=== PATIENT | female | born 1965 | race Caucasian/White ===

== ENCOUNTER → 2016-11-12 | Outpatient (REF) | payer OTHER ==
[~2016-11-12] MED LIST: /ADVA50050 IN; /ESOM40CA OR; ADV250INH INH; ALBU17IN INH; ALBU83IN INH; AMBI5TAB PO; ARNU1INH INH; ATRO1SOL13 INH; Albuterol Sulfate INH; BACL10TA2 PO; BACT800T5 PO; BUPR100T12 OR; CALCITRIOL OR; CLOTR1CR TOP; COLA100C PO; COLA100C2 OR; COUM10TA OR; COUM10TA PO; CYANPOW INJ; DAILTAB65 PO; DOC Q LACE PD; DOC-8.6T PO; DOCU10CA PO; DRIS50002 PO; DULC5TAB PO; DULO1CAP3 PO; ENDO5TAB7 PO; ERGO5000 PO; FERR325T OR; FERR325T3 PO; FLEXERIL OR; FURO1TAB15 PO; FURO40TA2 OR; FURO40TA2 PO; GABA600T PO; GABA600T3 OR; GLUC1KIT SC; Gabapentin OR; HYDR25T PO; IMIT50TA PO; IPRA2IN INH; KLOR1TAB69 PO; LIDO5DIS TOP; LIDO5DIS36 TD; LOTR1CRE TOP; LYRI100C10 PO; MAXALT OR; META48.54 PO; MIRA3350 PO; MORP20SO PO; MS C15TA5 OR; MS C30TA PO; MULTIVIT OR; NEUR600T OR; NEUR800T PO; NICO14DI3 TD; NICO21DI4 TD; OMEP20CA3 PO; OMEP40CA2 PO; OXYB5TA PO; OXYC15TA76 PO; OYSCO OR; PERC5TAB8 OR; POTA20TA OR; POTA20TA PO; PROZ20CA OR; SENE8.6T3 PO; SENEXON PO; SENN8.6T10 PO; SENO8.6T2 PO; SPIR25TA2 PO; SUMA6INJ SC; TOPA100T8 PO; TOPI100T OR; TOPI100T PO; TOPI200T OR; TRAZ100T4 PO; TYLE325T5 PO; VENL150C43 PO; VENL37.598 PO; VENL75CA PO; VENL75TA2 PO; VENTAER IN; VITA100072 IM; VITA100072 PO; VITA100L PO; VITAMIN D OR; VITMTA PO; WARF10TA OR; WARF4TAB51 PO; WELL100T2 OR; XARE20TA PO; [UNRECOGNIZED DRUG - OTHER] OR; [UNRECOGNIZED DRUG - OTHER] OR; gaba
[2016-11-12 13:23] LABS: INR 2.48
== END | disposition home or self-care (01) ==
LOC: M LAB REF 12:28
PROVIDERS: ATTEND Family Medicine
DX: Z51.81 Encounter for therapeutic drug level monitoring (principal); Z79.01 Long term (current) use of anticoagulants

== ENCOUNTER → 2016-12-17 | Outpatient (REF) | payer OTHER ==
[~2016-12-17] MED LIST changes: -ERGO5000 PO; +ERGO500014 PO; -TOPI100T PO; +TOPI1TAB31 PO
[2016-12-17 12:59] LABS: BASO % 0.4 % (0.0-1.0); EOS # 0.1 K/mm3 (0.0-0.50); LARGE UNSTAINED CELL # 0.1 K/mm3 (0.0-0.4); LARGE UNSTAINED CELL % 2.2 % (0.0-4.0); LYMPH # 1.7 K/mm3 (1.5-4.5); LYMPH % 43.3 % (24.0-44.0); MEAN CORPUSCULAR HEMOGLOBIN 30.8 pg (27.0-33.0); MEAN CORPUSCULAR HGB CONC 31.8 g/dl (32.0-36.5); MEAN CORPUSCULAR VOLUME 96.8 fl (80.0-96.0); MONO # 0.2 K/mm3 (0.0-0.8); NEUTROPHILS # 1.8 K/mm3 (1.8-7.7); NEUTROPHILS % 45.1 % (36.0-66.0); PLATELET COUNT, AUTOMATED 183 k/mm3 (150-450); RED CELL DISTRIBUTION WIDTH 13.3 % (11.5-14.5)
[2016-12-17 13:06] LABS: ANION GAP 10 MEQ/L (8-16); BLOOD UREA NITROGEN 11 MG/DL (7-18); CALCIUM LEVEL 8.1 MG/DL (8.5-10.1); CARBON DIOXIDE LEVEL 23 MEQ/L (21-32); CHLORIDE LEVEL 117 MEQ/L (98-107); GLOMERULAR FILTRATION RATE > 60.0 (>51); GLUCOSE, FASTING 88 MG/DL (70-105); POTASSIUM SERUM 3.7 MEQ/L (3.5-5.1); SODIUM LEVEL 150 MEQ/L (136-145)
== END | disposition home or self-care (01) ==
LOC: M LAB REF 12:04
PROVIDERS: ATTEND Internal Medicine Cardiovascular Disease
DX: Z51.81 Encounter for therapeutic drug level monitoring (principal); Z79.01 Long term (current) use of anticoagulants; I82.509 Chronic embolism and thrombosis of unspecified deep veins of unspecified lower extremity; R06.2 Wheezing

== ENCOUNTER → 2016-12-17 | Outpatient (REF) | payer OTHER ==
[2016-12-17 13:04] LABS: INR 1.24
== END | disposition home or self-care (01) ==
LOC: M LAB REF 12:06
PROVIDERS: ATTEND Family Medicine
DX: Z51.81 Encounter for therapeutic drug level monitoring (principal); Z79.01 Long term (current) use of anticoagulants

== ENCOUNTER → 2017-01-08 | Outpatient (CLI) | payer OTHER ==
[~2017-01-08] MED LIST changes: +GASTROGRAFIN SOLUTION 30ML (Q9963) As Ordered ONE; +ISOVUE-370 76% 100ML VIAL (Q9967) As Ordered ONE
--- NOTE | 2017-01-08 13:18 | REP ---
CT ABDOMEN WITH AND WITHOUT CONTRAST: TECHNIQUE: Axial noncontrast images through the abdomen followed by contrast-enhanced images through the abdomen using 100 mL Isovue 370 intravenous contrast material, with coronal and sagittal reformations. The visualized lung bases demonstrate no evidence of infiltrate. The liver demonstrates no mass. Patient has had a prior cholecystectomy. There is prominence of the common bile duct, measuring 1 cm in diameter with no definite intraluminal calculus. This caliber is normal in a patient of this page status post cholecystectomy. The spleen, adrenals and pancreas are unremarkable. There is no evidence of pancreatic mass. There is no pancreatic duct dilatation. Tiny subcentimeter cyst is seen in the upper pole of the right kidney. There is a cyst in the upper pole of the left kidney measuring 1.2 cm in diameter. There is no hydronephrosis bilaterally. No renal stones are seen. IVC filter is seen. No bowel wall thickening is seen. There is no significant adenopathy. There is no free air or free fluid. Patient has had prior gastric bypass surgery. There is a small hiatal hernia. IMPRESSION: Status post cholecystectomy. Small cyst in each kidney. Small hiatal hernia. No suspicious mass or adenopathy. Signed by Serg Willis MD 01/08/2017 03:55 P
== END ==
LOC: M RAD 10:45
PROVIDERS: ATTEND Family Medicine
DX: E16.2 Hypoglycemia, unspecified (principal); R55 Syncope and collapse; Z90.49 Acquired absence of other specified parts of digestive tract; K44.9 Diaphragmatic hernia without obstruction or gangrene; N28.1 Cyst of kidney, acquired
CPT/HCPCS: 74170; Q9963; Q9967

== ENCOUNTER → 2017-02-13 | Outpatient (CLI) | payer OTHER ==
[~2017-02-13] MED LIST changes: -COLA100C PO; +COLA100C3 PO; -GASTROGRAFIN SOLUTION 30ML (Q9963) As Ordered ONE; -ISOVUE-370 76% 100ML VIAL (Q9967) As Ordered ONE
--- NOTE | 2017-02-13 15:48 | REP ---
MRI BRAIN WITHOUT CONTRAST: HISTORY: Dizziness. COMPARISON: 11/29/2015 A small focus of increased signal intensity on T2-weighted images is present in the left petr. This represents an old lacunar infarction. Scattered punctate areas of increased signal intensity on T2-weighted images are present in the periventricular and subcortical white matter and petr. This represents small vessel ischemic disease. There is no intraparenchymal hemorrhage, acute infarct, mass or midline shift. The sella turcica is partially empty. A 7 mm pineal cyst is present. The ventricular system is normal in appearance. There is no extracerebral collection. The sinuses are clear. IMPRESSION: 1. Old left pontine lacunar infarction. 2. Minimal small vessel ischemic disease. Signed by Trenton Mistry MD 02/13/2017 03:49 P
--- NOTE | 2017-02-13 15:50 | REP ---
MRA BRAIN WITHOUT CONTRAST: HISTORY: Dizziness. 3D TOF MR angiography was performed at the level of the [place]. There is no aneurysm, arteriovenous malformation or atherosclerotic lesion. Major intracranial vessels are patent. The left vertebral artery is dominant. IMPRESSION: Normal MRA brain. Signed by Trenton Mistry MD 02/13/2017 03:51 P
--- NOTE | 2017-02-13 15:52 | REP ---
MRA CAROTIDS WITHOUT CONTRAST: HISTORY: Dizziness. Unenhanced 2D TOF MR angiography was performed at the level of the carotid bifurcations. This examination is limited secondary to motion. The distal common carotid arteries and origins of the external and internal carotid arteries are normal. The vertebral arteries are patent. The left vertebral artery is dominant. There are no atherosclerotic lesions. IMPRESSION: Normal MRA carotids. Signed by Trenton Mistry MD 02/13/2017 04:06 P
== END ==
LOC: M RAD 13:49
PROVIDERS: ATTEND Psychiatry & Neurology Neurology
DX: R42 Dizziness and giddiness (principal); R51 Headache; I73.9 Peripheral vascular disease, unspecified

== ENCOUNTER → 2017-02-27 | Outpatient (REF) | payer OTHER ==
[2017-02-27 18:36] LABS: FREE T4 0.8 NG/DL (0.76-1.46)
== END ==
LOC: M SFHCCLAY 10:39
PROVIDERS: ATTEND Family Medicine
DX: E16.2 Hypoglycemia, unspecified (principal)

== ENCOUNTER → 2017-03-25 | Outpatient (REF) | payer OTHER ==
[2017-03-25 15:05] LABS: INR 3.45
== END ==
LOC: M LAB REF 14:45
PROVIDERS: ATTEND Family Medicine
DX: Z51.81 Encounter for therapeutic drug level monitoring (principal); Z79.01 Long term (current) use of anticoagulants

== ENCOUNTER → 2017-05-06 | Outpatient (REF) | payer OTHER, SELFPAY ==
[~2017-05-06] MED LIST changes: -COLA100C3 PO; +COLA100C5 PO; -DOC-8.6T PO; +DOC-8.6T3 PO; +ENDO5TAB PO; -ENDO5TAB7 PO; -FURO1TAB15 PO; +FURO80TA2 PO; +HYDR-3363 PO; -HYDR25T PO; -LIDO5DIS36 TD; +LIDO5DIS41 TD; -LOTR1CRE TOP; +LOTR1CRE11 TOP; -LYRI100C10 PO; -MS C30TA PO; +MS C30TA6 PO; -OXYB5TA PO; +OXYB5TAB10 PO; +PREG100CA PO; +SENN1TAB10 PO; -SENN8.6T10 PO; -SENO8.6T2 PO; +SENO8.6T5 PO; +TOPA100T12 PO; -TOPA100T8 PO; +TOPI100T9 PO; -TOPI1TAB31 PO; +TRAZ-136 PO; -TRAZ100T4 PO
[2017-05-06 14:32] LABS: INR 1.74
== END ==
LOC: M LAB REF 13:27
PROVIDERS: ATTEND Family Medicine
DX: Z51.81 Encounter for therapeutic drug level monitoring (principal); Z79.01 Long term (current) use of anticoagulants

== ENCOUNTER → 2017-05-13 | Outpatient (REF) | payer OTHER, SELFPAY ==
[2017-05-13 11:57] LABS: INR 2.58
== END ==
LOC: M LAB REF 11:17
PROVIDERS: ATTEND Family Medicine
DX: R30.0 Dysuria (principal); Z79.01 Long term (current) use of anticoagulants

== ENCOUNTER 2017-09-20 06:37 | Inpatient (IN) | payer MEDICAID, OTHER, SELFPAY ==
[~2017-09-20] VITALS: Ht 167.6 cm; Wt 116.3 kg
[2017-09-20] MEDS: NS 1,000 ML IV SCH ×2 (07:44→20:04)
[2017-09-20] MEDS ORDERED: DEXTROSE 50% 50 ML SYRINGE As Ordered ONE (07:53)
[2017-09-20] MEDS ORDERED: DEXTROSE 50% 50 ML SYRINGE IV STA ×3 (07:54→13:11)
[2017-09-20 08:07] LABS: ABG BASE EXCESS -4.1 (-2.0-2.0); ABG HCO3 21.5 MEQ/L (22.0-26.0); ABG PARTIAL PRESSURE CO2 41.2 mmHg (35.0-45.0); ABG PARTIAL PRESSURE O2 60.3 mmHg (75.0-100.0); ABG TOTAL CO2 22.7 MEQ/L (22.0-29.0); ABG pH (ARTERIAL) 7.335 UNITS (7.350-7.450)
[2017-09-20 08:30] LABS: BASO % 0.2 % (0.0-1.0); IMMATURE GRANULOCYTE % 0.2 % (0-0); LYMPH # 0.6 10^3/uL (1.5-4.5); LYMPH % 7.3 % (24.0-44.0); MEAN CORPUSCULAR HEMOGLOBIN 32.6 pg (27.0-33.0); MEAN CORPUSCULAR HGB CONC 33.4 g/dl (32.0-36.5); MEAN CORPUSCULAR VOLUME 97.5 fl (80.0-96.0); MONO # 0.4 10^3/uL (0.0-0.8); MONO % 4.3 % (0.0-5.0); NEUTROPHILS # 7.4 10^3/uL (1.8-7.7); PLATELET COUNT, AUTOMATED 214 10^3/uL (150-450); RED CELL DISTRIBUTION WIDTH 13.1 % (11.5-14.5); WHITE BLOOD COUNT 8.4 10^3/uL (4.0-10.0)
--- NOTE | 2017-09-20 08:37 | REP ---
Chest one-view HISTORY: Altered mental status Comparison: 11/26/2015 The lungs are clear. The heart is normal in size. The pulmonary vasculature is normal in appearance. Impression: No acute disease. Signed by Trenton Mistry MD 09/20/2017 08:29 A
--- NOTE | 2017-09-20 08:41 | REP ---
CT Head without contrast HISTORY: Altered mental status COMPARISON: 11/26/2015 There is no intraparenchymal hemorrhage, acute infarct, mass or midline shift. The ventricular system and cortical sulci as well as subarachnoid space in the posterior fossa are dilated consistent with minimal volume loss. There is no extra cerebral collection. There is no fracture. The visualized sinuses are clear. IMPRESSION: Minimal volume loss. Signed by Trenton Mistry MD 09/20/2017 08:32 A
[2017-09-20 08:42] LABS: INR 2.34
[2017-09-20 08:51] LABS: ALBUMIN 3.8 GM/DL (3.2-5.2); ALBUMIN/GLOBULIN RATIO 1.09 (1.00-1.93); ALKALINE PHOSPHATASE 131 U/L (45-117); ALT/SGPT 23 U/L (12-78); ANION GAP 6 MEQ/L (8-16); AST/SGOT 17 U/L (7-37); BILIRUBIN,DIRECT < 0.1 MG/DL (0.0-0.2); BILIRUBIN,TOTAL 0.2 MG/DL (0.2-1.0); BLOOD UREA NITROGEN 11 MG/DL (7-18); CALCIUM LEVEL 8.5 MG/DL (8.5-10.1); CARBON DIOXIDE LEVEL 25 MEQ/L (21-32); CHLORIDE LEVEL 110 MEQ/L (98-107); CREATININE FOR GFR 0.82 MG/DL (0.55-1.02); GLOMERULAR FILTRATION RATE > 60.0 (>51); GLUCOSE, FASTING 120 MG/DL (70-105); POTASSIUM SERUM 3.6 MEQ/L (3.5-5.1); SODIUM LEVEL 141 MEQ/L (136-145); TOTAL PROTEIN 7.3 GM/DL (6.4-8.2)
[2017-09-20] MEDS: FUROSEMIDE 80 MG TAB PO SCH (09:00)
[2017-09-20] MEDS: D10W/0.45% SODIUM CHLORIDE 1,000 ML IV SCH ×4 (12:30→21:01)
[2017-09-20] MEDS ORDERED: WARF-23 PO (14:28)
[2017-09-20] MEDS ORDERED: ENAB15TA PO (14:49)
[2017-09-20] MEDS ORDERED: ALBU83IN INH (14:55)
[2017-09-20] MEDS ORDERED: GLUCAGON FOR INJ 1 MG VIAL (J1610) SC PRN (15:00)
[2017-09-20] MEDS ORDERED: GLUCOSE 4 GM CHEW TABLET PO PRN (15:00)
[2017-09-20] MEDS ORDERED: DEXTROSE 50% 50 ML SYRINGE IV PRN ×2 (15:00→15:45)
[2017-09-20] MEDS ORDERED: ALBUTEROL 90 MCG/ACT 8GM HFA INHALER INH PRN (15:45)
[2017-09-20] MEDS: ACETAMINOPHEN TAB 650MG DOSE (2X325MG) PO PRN (16:43)
--- NOTE | 2017-09-20 17:26 | HPEPDOC ---
[facility] Medical History & Physical Date of Admission Sep 20, 2017 Primary Care Physician: Tomy Samayoa MD Attending Physician: Jim Cui M.D. History and Physical CHIEF COMPLAINT: Low blood sugar HISTORY OF PRESENT ILLNESS: This is a 52-year-old female who presented to the emergency department with complaints of low blood sugar. She has a past medical history significant for hypoglycemia with past hospitalizations, status post gastric bypass 2003, TIA 1999, diabetes mellitus2, obesity, chronic migraines with aura, and factor V Leiden. Patient reports that she was having a sleep study last night. Patient states that she was feeling low on blood sugar. She took along her glucagon dose, but did not take the medication. Her daughter was alerted at 545 this morning, states that she was having a hard time waking up. She was brought to the emergency department by EMS. They measured her blood sugar at 34 and she was given an amp of glucose. In the emergency department, patient continued to be hypoglycemic. Her glucose continued to be around 60 to 100. She was given 2 Amps of glucose and started on D10 W/half-normal saline at a rate of 200 mL per hour. Patient started eating while in the emergency department. Patient continues to be lethargic. She was recently started on antibiotic on 09/16 for empiric treatment suspected UTI. PAST MEDICAL HISTORY: hypoglycemia, status post gastric bypass 2003, TIA 1999, diabetes mellitus2, obesity, chronic migraines with aura, and factor V Leiden PAST SURGICAL HISTORY: Gastric bypass in 2003, appendectomy, hysterectomy with partial nephrectomy, colonoscopy in 2013, right and left greater saphenous vein ablation 2013 SOCIAL HISTORY: Marital status: . Resides in: [place], [place]. Lives by herself, has 2 dogs: Pitbull named Varinder and a toy poodle named Suad Children: 4 Employment: None Tobacco use: Half pack per day ETOH: Denies Illicit drug use: Denies IV drug use: Denies FAMILY HISTORY: Father: 52, lung ca Mother: 72. colon ca, DM, thyroid d/o ALLERGIES: Please see below. REVIEW OF SYSTEMS: CONSTITUTIONAL: Lethargic HEENT: No Headaches, changes in vision CARDIOVASCULAR: No CP, palpitations RESPIRATORY: No SOB, dyspnea GASTROINTESTINAL: Some suprapubic pain, no diarrhea/constipation, no nausea/ vomiting GENITOURINARY: urinary frequency SKIN: no rashes MUSCULOSKELETAL: no muscle aches NEUROLOGICAL: no numbness, tingling PSYCHIATRIC: hx of depression ENDOCRINE: Low blood sugar, no polyuria/polydipsia HEMATOLOGIC/LYMPHATIC: no abnormal bleeding or bruising. HOME MEDICATIONS: Please see below. PHYSICAL EXAMINATION: VITAL SIGNS: Please see below GENERAL APPEARANCE: Alert and oriented, no acute distress, was eating at the time HEENT: Normocephalic, atraumatic, EOMI, PERRLA, TM flat dull CARDIOVASCULAR: RRR, no murmurs LUNGS: Clear b/l no wheezing ABDOMEN: soft, nontender, nondistended, no rebound EXTREMITIES: No edema NEUROLOGICAL: No sensory deficits PSYCHIATRIC: lethargic, normal mood. LABORATORY DATA: See below. IMAGING: CT head 09/20: Minimal volume loss CXR 09/20: No acute disease MICROBIOLOGY: Please see below. ASSESSMENT: This is a 52 y/o female with symptomatic hypoglycemia. PLAN: 1. Hypoglycemia. Patient admitted to ICU for BS q1h. At this time, we will continue patient on D10 W/half-normal saline at a rate of 75 mL per hour. Hypoglycemic protocol initiated, patient will be given 1 amp of glucose if fasting blood sugars below 60. Patient was administered glucagon. Labs ordered for C-peptide, proinsulin, insulin levels. MRI of the abdomen ordered to rule out insulinoma/pancreatic mass. 2. UTI. UA and urine culture ordered. Blood cultures taken. Patient has recurrent UTI. Was started on cephalexin on 09/16, empirically started by PCP. We will continue antibiotic. 3. Hypertension. Continue patient on furosemide and spironolactone. 4. History of depression. Continue patient on duloxetine. 5. History of diabetic neuropathy. Continue patient on gabapentin. 6. History of factor V Leiden. Currently on anticoagulation with Coumadin. 7. History of asthma. Continue home regimen 8. History of migraine with aura. Continue patient on topiramate. 9. DVT prophylaxis. Patient is on Coumadin. Vital Signs Vital Signs Date Time Temp Pulse Resp B/P (MAP) Pulse Ox O2 Delivery O2 Flow Rate FiO2 09/20/17 13:19 97.1 09/20/17 12:59 64 09/20/17 11:14 97 09/20/17 06:51 18 Room Air Laboratory Data Labs 24H Laboratory Tests 2 09/20/17 07:01: Bedside Glucose (Misc Panel) 98 09/20/17 07:50: Blood Gas Bicarbonate Standard 21.0L, Arterial Blood pH 7.335L, Arterial Blood Partial Pressure CO2 41.2, Arterial Blood Partial Pressure O2 60.3L, Arterial Blood Total CO2 22.7, Arterial Blood HCO3 21.5L, Arterial Blood Base Excess - 4.1L, Arterial Blood Oxygen Saturation 91.6L 09/20/17 07:52: Bedside Glucose (Misc Panel) 60L 09/20/17 08:24: Immature Granulocyte % (Auto) 0.2H, White Blood Count 8.4, Red Blood Count 4.79 , Hemoglobin 15.6, Hematocrit 46.7, Mean Corpuscular Volume 97.5H, Mean Corpuscular Hemoglobin 32.6, Mean Corpuscular Hemoglobin Concent 33.4, Red Cell Distribution Width 13.1, Platelet Count 214, Neutrophils (%) (Auto) 88.0H, Lymphocytes (%) (Auto) 7.3L, Monocytes (%) (Auto) 4.3, Eosinophils (%) (Auto) 0.0, Basophils (%) (Auto) 0.2, Neutrophils # (Auto) 7.4, Lymphocytes # (Auto) 0.6L, Monocytes # (Auto) 0.4, Eosinophils # (Auto) 0.0, Basophils # (Auto) 0.0, Immature Granulocyte # (Auto) 0.0, Nucleated Red Blood Cells % (auto) 0.0, Prothrombin Time 26.5H, Prothromb Time International Ratio 2.34, Anion Gap 6L, Glomerular Filtration Rate > 60.0, Calcium Level 8.5, Aspartate Amino Transf ( AST/SGOT) 17, Alanine Aminotransferase (ALT/SGPT) 23, Alkaline Phosphatase 131H , Total Bilirubin 0.2, Direct Bilirubin < 0.1, Total Creatine Kinase 51, Creatine Kinase MB 1.0, Creatine Kinase MB Relative Index 1.96, Troponin I < 0.02, Total Protein 7.3, Albumin 3.8, Albumin/Globulin Ratio 1.09, Thyroid Stimulating Hormone (TSH) 1.420 09/20/17 09:43: Bedside Glucose (Misc Panel) 119H 09/20/17 10:53: Bedside Glucose (Misc Panel) 94 09/20/17 12:01: Bedside Glucose (Misc Panel) 61L 09/20/17 13:09: Bedside Glucose (Misc Panel) 57L CBC/BMP Laboratory Tests 09/20/17 08:24 Red Blood Count 4.79, Mean Corpuscular Volume 97.5 H, Mean Corpuscular Hemoglobin 32.6, Mean Corpuscular Hemoglobin Concent 33.4, Red Cell Distribution Width 13.1, Neutrophils (%) (Auto) 88.0 H, Lymphocytes (%) (Auto) 7.3 L, Monocytes (%) (Auto) 4.3, Eosinophils (%) (Auto) 0.0, Basophils (%) (Auto ) 0.2, Neutrophils # (Auto) 7.4, Lymphocytes # (Auto) 0.6 L, Monocytes # (Auto) 0.4, Eosinophils # (Auto) 0.0, Basophils # (Auto) 0.0 Home Medications Scheduled (Arnuity Ellipta) 100 Mcg/Act Inh, 100 MCG INH DAILY Baclofen (Baclofen) 10 Mg Tab, 10 MG PO TID Cyanocobalamin (Vitamin B12) 1,000 Mcg Tab, 1,000 MCG PO DAILY Darifenacin Hydrobromide (Enablex) 15 Mg Tab, 15 MG PO DAILY Docusate Sodium (Colace) 100 Mg Cap, 200 MG PO BID Duloxetine Hcl (Duloxetine HCl) 60 Mg Cap, 60 MG PO DAILY Ferrous Sulfate (Ferrous Sulfate) 325 Mg Tab, 325 MG PO DAILY Furosemide (Furosemide) 80 Mg Tab, 80 MG PO DAILY Gabapentin (Gabapentin) 600 Mg Tab, 600 MG PO TID Glucagon Rdna (Glucagon Emergency Kit) 1 Mg Kit, 1 MG SC ASDIRECTED Multivitamins *[facility] STOCKED* (Thera M Plus *[facility] STOCKED*) 1 Tab Tab, 1 TAB PO DAILY Omeprazole (Omeprazole) 20 Mg Cap, 20 MG PO BID Potassium Chloride (Klor-Con M20) 20 Meq Tabcr, 40 MEQ PO BID Senna (Senna Lax) 8.6 Mg Tab, 2 TABS PO BID Spironolactone (Spironolactone) 25 Mg Tab, 25 MG PO DAILY Topiramate (Topiramate) 100 Mg Tab, 100 MG PO BID Vitamin D (Drisdol) 50,000 Unit Cap, 50,000 UNIT PO QWEEK THURSDAY Warfarin Sod (Coumadin) 10 Mg Tab, 10 MG PO ASDIRECTED PER INR LABS ON THURSDAY. CURRENTLY 10MG THU,THU,,SAT,SUN Warfarin Sod (Warfarin Sodium) 5 Mg Tab, 5 MG PO ASDIRECTED PER INR LABS ON THURSDAY. CURRENTLY 5MG ,THURSDAY Scheduled PRN Acetaminophen (Tylenol) 325 Mg Tab, 650 MG PO Q4H PRN for PAIN Albuterol Sulfate (Ventolin Hfa) 200 Puff/8 Gm Aers, 2 PUFF INH QID PRN for SHORTNESS OF BREATH Albuterol Sulfate (Albuterol Sulfate) 2.5 Mg/3 Ml Nebu, 2.5 MG INH Q4H PRN for SHORTNESS OF BREATH Allergies Coded Allergies: Penicillins (Verified Allergy, Intermediate, rash, 12/30/14) Mupirocin (Verified Allergy, Unknown, redness, edema, 11/29/15) GME ATTESTATION GME ATTESTATION My preceptor for this patient encounter was physically present in the building during the encounter and was fully available. As needed, all aspects of the patient interview, examination, medical decision making process, and medical care plan development were reviewed and approved by the preceptor. Preceptor is aware and concurs with the plan as stated in the body of this note and will attest to such by his/her cosignature. MEGHNAN OWENS DO Sep 20, 2017 14:19
[2017-09-20] MEDS: GABAPENTIN 300 MG CAP PO SCH ×2 (18:04→21:02)
[2017-09-20] MEDS: BACLOFEN 10 MG TAB PO SCH ×2 (18:04→21:02)
[2017-09-20 18:29] LABS: CALCIUM OXALATE CRYSTALS SMALL
[2017-09-20 20:00] VITALS: BP 132/86
[2017-09-20] MEDS: WARFARIN SOD 5 MG TAB PO SCH (20:03)
[2017-09-20] MEDS: DULoxetine 30 MG CAP (CYMBALTA) PO SCH (21:02)
[2017-09-20] MEDS: SPIRONOLACTONE 25 MG TAB PO SCH (21:02)
[2017-09-20] MEDS: DOCUSATE SODIUM 100 MG CAP PO SCH (21:03)
[2017-09-20] MEDS: SENNA 8.6 MG TAB (SENOKOT) PO SCH (21:03)
[2017-09-20] MEDS: CEPHALEXIN 500 MG CAP PO SCH (21:04)
[2017-09-20] MEDS: NICOTINE 7 MG/24 HR TRANSDERMAL TD SCH (21:04)
[2017-09-20] MEDS: TOPIRAMATE (TopAMAX) 100 MG TAB PO SCH (21:04)
[2017-09-21] VITALS: BP 110/71
[2017-09-21 04:00] VITALS: BP 99/51
[2017-09-21 04:42] LABS: BASO % 0.7 % (0.0-1.0); EOS # 0.1 10^3/uL (0.0-0.50); EOS % 1.7 % (0.0-3.0); IMMATURE GRANULOCYTE % 0.2 % (0-0); LYMPH # 2.8 10^3/uL (1.5-4.5); LYMPH % 47.3 % (24.0-44.0); MEAN CORPUSCULAR HEMOGLOBIN 32.5 pg (27.0-33.0); MEAN CORPUSCULAR HGB CONC 33.7 g/dl (32.0-36.5); MEAN CORPUSCULAR VOLUME 96.7 fl (80.0-96.0); MONO # 0.6 10^3/uL (0.0-0.8); MONO % 10.7 % (0.0-5.0); NEUTROPHILS # 2.3 10^3/uL (1.8-7.7); NEUTROPHILS % 39.4 % (36.0-66.0); PLATELET COUNT, AUTOMATED 210 10^3/uL (150-450); RED CELL DISTRIBUTION WIDTH 13.4 % (11.5-14.5); WHITE BLOOD COUNT 5.8 10^3/uL (4.0-10.0)
[2017-09-21 04:56] LABS: INR 2.84
[2017-09-21 05:05] LABS: ALBUMIN 3.1 GM/DL (3.2-5.2); ALBUMIN/GLOBULIN RATIO 0.97 (1.00-1.93); ALKALINE PHOSPHATASE 109 U/L (45-117); ALT/SGPT 21 U/L (12-78); ANION GAP 8 MEQ/L (8-16); AST/SGOT 15 U/L (7-37); BILIRUBIN,TOTAL 0.2 MG/DL (0.2-1.0); BLOOD UREA NITROGEN 10 MG/DL (7-18); CARBON DIOXIDE LEVEL 23 MEQ/L (21-32); CHLORIDE LEVEL 113 MEQ/L (98-107); CREATININE FOR GFR 0.73 MG/DL (0.55-1.02); GLOMERULAR FILTRATION RATE > 60.0 (>51); GLUCOSE, FASTING 91 MG/DL (70-105); POTASSIUM SERUM 3.6 MEQ/L (3.5-5.1); SODIUM LEVEL 144 MEQ/L (136-145); TOTAL PROTEIN 6.3 GM/DL (6.4-8.2)
--- NOTE | 2017-09-21 05:42 | ECGEPIP ---
Stationary ECG Study [facility] - ED Test Date: 2017-09-20 Pat Name: LILA NUÑEZ Department: Room: [place] [address] Gender: F Community Education Specialist: lenny : 1965 Requested By: Aldo Ramon Order Number: [id number] Reading MD: Aldo Cintron Measurements Intervals [place] Rate: 67 P: 21 VT: 182 QRS: -41 QRSD: 118 T: -75 QT: 462 QTc: 488 Interpretive Statements SINUS RHYTHM MARKED LEFT AXIS DEVIATION MODERATE INTRAVENTRICULAR CONDUCTION DELAY MODERATE T-WAVE ABNORMALITY, CONSIDER LATERAL ISCHEMIA RIGHT BUNDLE BRANCH BLOCK ON PRIOR EKG NO LONGER PRESENT Electronically Signed On 09-21-2017 5:42:01 EST by Aldo Cintron
[2017-09-21] MEDS: ACETAMINOPHEN TAB 650MG DOSE (2X325MG) PO PRN (06:39)
[2017-09-21 08:00] VITALS: BP 112/70
[2017-09-21] MEDS: SENNA 8.6 MG TAB (SENOKOT) PO SCH ×2 (08:45→21:08)
[2017-09-21] MEDS: DOCUSATE SODIUM 100 MG CAP PO SCH ×2 (08:47→21:08)
[2017-09-21] MEDS: DULoxetine 30 MG CAP (CYMBALTA) PO SCH (08:47)
[2017-09-21] MEDS: BACLOFEN 10 MG TAB PO SCH ×3 (08:47→21:08)
[2017-09-21] MEDS: TOPIRAMATE (TopAMAX) 100 MG TAB PO SCH ×2 (08:47→21:08)
[2017-09-21] MEDS: CEPHALEXIN 500 MG CAP PO SCH ×2 (08:47→21:08)
[2017-09-21] MEDS: GABAPENTIN 300 MG CAP PO SCH ×3 (08:47→21:07)
[2017-09-21] MEDS: FUROSEMIDE 80 MG TAB PO SCH (08:47)
[2017-09-21] MEDS: SPIRONOLACTONE 25 MG TAB PO SCH (08:47)
[2017-09-21] MEDS: NICOTINE 7 MG/24 HR TRANSDERMAL TD SCH (08:48)
[2017-09-21] MEDS: D10W/0.45% SODIUM CHLORIDE 1,000 ML IV SCH (09:53)
[2017-09-21 12:00] VITALS: BP 124/76
[2017-09-21 16:00] VITALS: BP 123/70
--- NOTE | 2017-09-21 16:00 | IPNPDOC ---
Subjective Date Seen The patient was seen on 09/21/17. Subjective Chief Complaint/HPI The patient is a 52-year-old female admitted with a reason for visit of Hypoglycemia. Events since last encounter Patient states that she has been doing good, she states that her sugars have been running around 80. She denies any hypoglycemic episodes. Constitutional: Denies: Chills, Fever Pulmonary: Denies: Dyspnea Cardiovascular: Denies: Chest Pain Other systems Head: Positive for feeling dizzy, lightheaded Objective Physical Examination General Exam: Positive: Alert Chest Exam: Positive: Normal air movement, Wheezing, Negative: Clear to auscultation, Rales, Rhonchi Heart Exam: Positive: Rate Normal, Regular Rhythm, Normal S1, Normal S2, Negative: Gallops, Murmurs, Rubs Abdomen Exam: Positive: Normal bowel sounds, Soft, Negative: Tenderness, Hepatospenomegaly, Mass Extremity Exam: Negative: Swelling Assessment /Plan Assessment Patient is a 52-year-old female with recurrent episodes of hypoglycemic. He has been stable since admission. Problems (1) Hypoglycemia Status: Acute Response to Treatment: Stable Problem Text: 09/21: Etiology of recurrent hypoglycemic episodes is unclear at this time. Patient has not had any further hypoglycemic episodes since admission. We will continue to monitor with every hour fingerstick blood sugars. If she develops hypoglycemia (blood sugar less than 60) we will repeat insulin, C-peptide, IGF 1 and 2 levels. She is scheduled to have MRI of her abdomen performed today. We will follow up results from it MRI when available. (2) Urinary tract infection Status: Acute Response to Treatment: Stable Problem Text: Patient has been on cephalexin since 09/16. (3) Hypertension Status: Chronic Response to Treatment: Stable Problem Text: Continue Lasix, spironolactone (4) History of depression Status: Chronic Response to Treatment: Stable Problem Text: Continue Cymbalta (5) History of diabetic neuropathy Status: Chronic Response to Treatment: Stable Problem Text: Continue gabapentin 600 mg 3 times a day (6) History of factor V Leiden mutation Status: Chronic Response to Treatment: Stable Problem Text: 09/21: Currently on Coumadin 10 mg Thursday, Thursday, Thursday, , Thursday, 5 mg Thursday, Thursday. INR of 2.84 today. Continue current medication dosing (7) History of asthma Status: Chronic Response to Treatment: Stable Problem Text: Continue albuterol puffer as needed (8) DVT prophylaxis Problem Text: Currently on Coumadin Plan/VTE VTE Prophylaxis Ordered?: Yes Plan Diet: Continue Current Diagnostics: MRI VS, I&O, 24H, Fishbone Vital Signs/I&O Vital Signs Date Time Temp Pulse Resp B/P (MAP) Pulse Ox O2 Delivery O2 Flow Rate FiO2 09/21/17 12:00 Room Air 09/21/17 12:00 99.9 72 20 124/76 (92) 96 I&O- Last 24 Hours up to 6 AM 09/22/17 06:00 Intake Total 1440 ml Output Total 1500 ml Balance -60 ml Laboratory Data 24H LABS Laboratory Tests 2 09/20/17 16:28: Bedside Glucose (Misc Panel) 104 09/20/17 17:25: 09/20/17 17:29: Bedside Glucose (Misc Panel) 94 09/20/17 17:57: Urine Appearance CLOUDYH, Urine Color YELLOW, Urine pH 5.0, Urine Specific [place] 1.014, Urine Protein 1+H, Urine Glucose (UA) NEGATIVE, Urine Ketones NEGATIVE, Urine Urobilinogen 0.2, Urine Bilirubin NEGATIVE, Urine Leukocyte Esterase 3+H, Urine Blood 1+H, Urine Nitrite POSITIVE, Urine WBC (Auto) TNTCH, Urine RBC (Auto) 19H, Urine Hyaline Casts (Auto) 0, Urine Bacteria (Auto) 2+H, Urine Squamous Epithelial Cells 6, Urine Calcium Oxalate Cryst (Auto) SMALL, Urine Sperm (Auto) 09/20/17 18:37: Bedside Glucose (Misc Panel) 69L 09/20/17 19:37: Bedside Glucose (Misc Panel) 115H 09/20/17 20:58: Bedside Glucose (Misc Panel) 75 09/20/17 22:04: Bedside Glucose (Misc Panel) 103 09/20/17 23:08: Bedside Glucose (Misc Panel) 95 09/21/17 00:02: Bedside Glucose (Misc Panel) 125H 09/21/17 01:01: Bedside Glucose (Misc Panel) 80 09/21/17 02:10: Bedside Glucose (Misc Panel) 109H 09/21/17 02:58: Bedside Glucose (Misc Panel) 89 09/21/17 04:05: Bedside Glucose (Misc Panel) 96 09/21/17 04:36: Immature Granulocyte % (Auto) 0.2H, White Blood Count 5.8, Red Blood Count 4.21 , Hemoglobin 13.7, Hematocrit 40.7, Mean Corpuscular Volume 96.7H, Mean Corpuscular Hemoglobin 32.5, Mean Corpuscular Hemoglobin Concent 33.7, Red Cell Distribution Width 13.4, Platelet Count 210, Neutrophils (%) (Auto) 39.4, Lymphocytes (%) (Auto) 47.3H, Monocytes (%) (Auto) 10.7H, Eosinophils (%) (Auto ) 1.7, Basophils (%) (Auto) 0.7, Neutrophils # (Auto) 2.3, Lymphocytes # (Auto) 2.8, Monocytes # (Auto) 0.6, Eosinophils # (Auto) 0.1, Basophils # (Auto) 0.0, Immature Granulocyte # (Auto) 0.0, Nucleated Red Blood Cells % (auto) 0.0, Prothrombin Time 31.1H, Prothromb Time International Ratio 2.84, Anion Gap 8, Glomerular Filtration Rate > 60.0, Blood Urea Nitrogen 10, Creatinine 0.73, Sodium Level 144, Potassium Level 3.6, Chloride Level 113H, Carbon Dioxide Level 23, Calcium Level 8.0L, Aspartate Amino Transf (AST/SGOT) 15, Alanine Aminotransferase (ALT/SGPT) 21, Alkaline Phosphatase 109, Total Bilirubin 0.2, Total Protein 6.3L, Albumin 3.1L, Albumin/Globulin Ratio 0.97L 09/21/17 04:48: Bedside Glucose (Misc Panel) 92 09/21/17 05:56: Bedside Glucose (Misc Panel) 83 09/21/17 06:38: Bedside Glucose (Misc Panel) 81 09/21/17 08:30: Bedside Glucose (Misc Panel) 83 09/21/17 09:17: Bedside Glucose (Misc Panel) 94 09/21/17 10:12: Bedside Glucose (Misc Panel) 115H 09/21/17 11:04: Bedside Glucose (Misc Panel) 101 09/21/17 12:07: Bedside Glucose (Misc Panel) 95 09/21/17 13:02: Bedside Glucose (Misc Panel) 98 09/21/17 14:06: Bedside Glucose (Misc Panel) 112H 09/21/17 15:08: Bedside Glucose (Misc Panel) 106H CBC/BMP Laboratory Tests 09/21/17 04:36 Red Blood Count 4.21, Mean Corpuscular Volume 96.7 H, Mean Corpuscular Hemoglobin 32.5, Mean Corpuscular Hemoglobin Concent 33.7, Red Cell Distribution Width 13.4, Neutrophils (%) (Auto) 39.4, Lymphocytes (%) (Auto) 47.3 H, Monocytes (%) (Auto) 10.7 H, Eosinophils (%) (Auto) 1.7, Basophils (%) ( Auto) 0.7, Neutrophils # (Auto) 2.3, Lymphocytes # (Auto) 2.8, Monocytes # (Auto ) 0.6, Eosinophils # (Auto) 0.1, Basophils # (Auto) 0.0, Calcium Level 8.0 L, Aspartate Amino Transf (AST/SGOT) 15, Alanine Aminotransferase (ALT/SGPT) 21, Alkaline Phosphatase 109, Total Bilirubin 0.2, Total Protein 6.3 L, Albumin 3.1 L Microbiology Microbiology 09/20/17 Blood Culture, Received Pending 09/20/17 Urine Culture, Received Pending GME ATTESTATION GME ATTESTATION My faculty preceptor for this patient encounter was physically present during the encounter and was fully available. ~All aspects of the patient interview, examination, medical decision making process, and medical care plan development were reviewed and approved by the faculty preceptor. The faculty preceptor is aware and concurs with the plan as stated in the body of this note and will attest to such by his/her co-signature. CYNTHIA MILLER DO Sep 21, 2017 16:00
[2017-09-21] MEDS: WARFARIN SOD 5 MG TAB PO SCH (16:09)
[2017-09-21] MEDS ORDERED: PROHANCE 279.3MG/ML 5ML VIAL (A9576) As Ordered ONE (19:22)
[2017-09-21] MEDS ORDERED: PROHANCE 279.3MG/ML 15ML VIAL (A9576) As Ordered ONE (19:22)
[2017-09-21 20:00] VITALS: BP 126/78
[2017-09-22] VITALS: BP 101/54
[2017-09-22] MEDS: D10W/0.45% SODIUM CHLORIDE 1,000 ML IV SCH ×2 (00:17→13:35)
[2017-09-22 04:00] VITALS: BP 117/66
[2017-09-22 05:09] LABS: BASO % 0.8 % (0.0-1.0); EOS # 0.1 10^3/uL (0.0-0.50); EOS % 2.4 % (0.0-3.0); IMMATURE GRANULOCYTE % 0.2 % (0-0); LYMPH # 2.3 10^3/uL (1.5-4.5); LYMPH % 45.8 % (24.0-44.0); MEAN CORPUSCULAR HEMOGLOBIN 31.8 pg (27.0-33.0); MEAN CORPUSCULAR HGB CONC 32.5 g/dl (32.0-36.5); MEAN CORPUSCULAR VOLUME 97.7 fl (80.0-96.0); MONO # 0.6 10^3/uL (0.0-0.8); MONO % 10.9 % (0.0-5.0); NEUTROPHILS % 39.9 % (36.0-66.0); PLATELET COUNT, AUTOMATED 205 10^3/uL (150-450); RED CELL DISTRIBUTION WIDTH 13.2 % (11.5-14.5)
[2017-09-22 05:22] LABS: INR 3.02
[2017-09-22 05:31] LABS: ALBUMIN 3.1 GM/DL (3.2-5.2); ALBUMIN/GLOBULIN RATIO 0.94 (1.00-1.93); ALKALINE PHOSPHATASE 121 U/L (45-117); ALT/SGPT 21 U/L (12-78); ANION GAP 7 MEQ/L (8-16); AST/SGOT 15 U/L (7-37); BILIRUBIN,TOTAL 0.2 MG/DL (0.2-1.0); BLOOD UREA NITROGEN 14 MG/DL (7-18); CARBON DIOXIDE LEVEL 23 MEQ/L (21-32); CHLORIDE LEVEL 113 MEQ/L (98-107); CREATININE FOR GFR 0.78 MG/DL (0.55-1.02); GLOMERULAR FILTRATION RATE > 60.0 (>51); GLUCOSE, FASTING 106 MG/DL (70-105); POTASSIUM SERUM 3.7 MEQ/L (3.5-5.1); SODIUM LEVEL 143 MEQ/L (136-145); TOTAL PROTEIN 6.4 GM/DL (6.4-8.2)
[2017-09-22 08:00] VITALS: BP 107/63
[2017-09-22] MEDS: DOCUSATE SODIUM 100 MG CAP PO SCH ×2 (08:20→20:47)
[2017-09-22] MEDS: SENNA 8.6 MG TAB (SENOKOT) PO SCH ×2 (08:20→20:46)
[2017-09-22] MEDS: SPIRONOLACTONE 25 MG TAB PO SCH (08:20)
[2017-09-22] MEDS: GABAPENTIN 300 MG CAP PO SCH ×3 (08:20→20:46)
[2017-09-22] MEDS: NICOTINE 7 MG/24 HR TRANSDERMAL TD SCH (08:20)
[2017-09-22] MEDS: FUROSEMIDE 80 MG TAB PO SCH (08:21)
[2017-09-22] MEDS: DULoxetine 30 MG CAP (CYMBALTA) PO SCH (08:21)
[2017-09-22] MEDS: BACLOFEN 10 MG TAB PO SCH ×3 (08:21→20:46)
[2017-09-22] MEDS: CEPHALEXIN 500 MG CAP PO SCH ×2 (08:21→20:46)
[2017-09-22] MEDS: TOPIRAMATE (TopAMAX) 100 MG TAB PO SCH ×2 (08:21→20:47)
--- NOTE | 2017-09-22 09:44 | REP ---
MRI PANCREAS WITH AND WITHOUT CONTRAST: TECHNIQUE: Multiple sequences obtained in the axial and coronal planes prior to and following the intravenous administration of 20 mL of contrast. Correlation made with prior CT 01/08/2017. The pancreas demonstrates normal signal characteristics with no evidence of inflammation or mass. There is no enhancing nodule on post contrast images. Pancreatic duct is normal in caliber. There is prominence of the common bile duct with a maximum diameter of 9 mm in this patient status post cholecystectomy. Distally the common bile duct tapers in a normal fashion with no evidence for focal stricture. The visualized liver, spleen and adrenals appear unremarkable. There is a cyst in the upper pole of the left kidney 1.3 cm in diameter. A couple of subcentimeter cysts are seen in the right kidney. There is no hydronephrosis. There is some artifact from a metallic filter in the inferior vena cava. No adenopathy or free fluid is seen in the visualized abdomen. IMPRESSION: No evidence of pancreatic nodule or mass. Mildly prominent common bile duct in this patient status post cholecystectomy is expected in a patient of this age. Signed by Serg Willis MD 09/22/2017 01:24 P
--- NOTE | 2017-09-22 11:13 | IPNPDOC ---
Subjective Date Seen The patient was seen on 09/22/17. Subjective Chief Complaint/HPI The patient is a 52-year-old female admitted with a reason for visit of Hypoglycemia. Events since last encounter Pt this morning c/o some wheezing. She otherwise has no new concerns. Her FSBS have been stable. General: Denies: Fatigue Pulmonary: Reports: Cough, Denies: Dyspnea Cardiovascular: Denies: Chest Pain, Palpitations Gastrointestinal: Denies: Nausea, Vomiting, Diarrhea Neurological: Reports: Weakness Psych: Reports: Mood Normal Objective Physical Examination General Exam: Positive: Alert, No Acute Distress ENT Exam: Positive: Mucous membr. moist/pink Chest Exam: Positive: Normal air movement, Wheezing, Negative: Clear to auscultation, Rales, Rhonchi Heart Exam: Positive: Rate Normal, Regular Rhythm, Normal S1, Normal S2, Negative: Gallops, Murmurs, Rubs Abdomen Exam: Positive: Normal bowel sounds, Soft, Negative: Tenderness, Hepatospenomegaly, Mass Extremity Exam: Negative: Swelling Assessment /Plan Problems (1) Hypoglycemia Status: Acute Response to Treatment: Stable Problem Text: 09/22 MRI abd results pending. No further hypoglycemia, she is however drinking Mt Dew and on D10 IV. She cont to have FSBS q1h. Diet changed from cons carb to regular. 09/21: Etiology of recurrent hypoglycemic episodes is unclear at this time. Patient has not had any further hypoglycemic episodes since admission. We will continue to monitor with every hour fingerstick blood sugars. If she develops hypoglycemia (blood sugar less than 60) we will repeat insulin, C-peptide, IGF 1 and 2 levels. She is scheduled to have MRI of her abdomen performed today. We will follow up results from it MRI when available. (2) Urinary tract infection Status: Acute Response to Treatment: Stable Problem Text: Patient has been on cephalexin since 09/16. (3) Hypertension Status: Chronic Response to Treatment: Stable Problem Text: Continue Lasix, spironolactone (4) History of depression Status: Chronic Response to Treatment: Stable Problem Text: Continue Cymbalta (5) History of diabetic neuropathy Status: Chronic Response to Treatment: Stable Problem Text: Continue gabapentin 600 mg 3 times a day (6) History of factor V Leiden mutation Status: Chronic Response to Treatment: Stable Problem Text: 09/21: Currently on Coumadin 10 mg Thursday, Thursday, Thursday, , Thursday, 5 mg Thursday, Thursday. INR of 2.84 today. Continue current medication dosing (7) History of asthma Status: Chronic Response to Treatment: Stable Problem Text: Continue albuterol puffer as needed, started nebs today, Arnuity at home, isn't available inpt. (8) DVT prophylaxis Problem Text: Currently on Coumadin Plan/VTE VTE Prophylaxis Ordered?: Yes Plan Diet: Continue Current Diagnostics: MRI VS, I&O, 24H, Fishbone Vital Signs/I&O Vital Signs Date Time Temp Pulse Resp B/P (MAP) Pulse Ox O2 Delivery O2 Flow Rate FiO2 09/22/17 08:00 97.6 60 18 107/63 (78) 99 Room Air I&O- Last 24 Hours up to 6 AM 09/23/17 06:00 Intake Total 480 ml Output Total 1250 ml Balance -770 ml Laboratory Data 24H LABS Laboratory Tests 2 09/21/17 12:07: Bedside Glucose (Misc Panel) 95 09/21/17 13:02: Bedside Glucose (Misc Panel) 98 09/21/17 14:06: Bedside Glucose (Misc Panel) 112H 09/21/17 15:08: Bedside Glucose (Misc Panel) 106H 09/21/17 16:04: Bedside Glucose (Misc Panel) 92 09/21/17 17:03: Bedside Glucose (Misc Panel) 99 09/21/17 18:02: Bedside Glucose (Misc Panel) 96 09/21/17 18:44: Bedside Glucose (Misc Panel) 99 09/21/17 21:07: Bedside Glucose (Misc Panel) 158H 09/21/17 22:01: Bedside Glucose (Misc Panel) 177H 09/21/17 23:12: Bedside Glucose (Misc Panel) 109H 09/22/17 00:15: Bedside Glucose (Misc Panel) 125H 09/22/17 01:03: Bedside Glucose (Misc Panel) 110H 09/22/17 02:00: Bedside Glucose (Misc Panel) 108H 09/22/17 03:15: Bedside Glucose (Misc Panel) 111H 09/22/17 04:21: Bedside Glucose (Misc Panel) 103 09/22/17 04:57: Immature Granulocyte % (Auto) 0.2H, White Blood Count 5.0, Red Blood Count 4.44 , Hemoglobin 14.1, Hematocrit 43.4, Mean Corpuscular Volume 97.7H, Mean Corpuscular Hemoglobin 31.8, Mean Corpuscular Hemoglobin Concent 32.5, Red Cell Distribution Width 13.2, Platelet Count 205, Neutrophils (%) (Auto) 39.9, Lymphocytes (%) (Auto) 45.8H, Monocytes (%) (Auto) 10.9H, Eosinophils (%) (Auto ) 2.4, Basophils (%) (Auto) 0.8, Neutrophils # (Auto) 2.0, Lymphocytes # (Auto) 2.3, Monocytes # (Auto) 0.6, Eosinophils # (Auto) 0.1, Basophils # (Auto) 0.0, Immature Granulocyte # (Auto) 0.0, Nucleated Red Blood Cells % (auto) 0.0, Prothrombin Time 32.7H, Prothromb Time International Ratio 3.02, Anion Gap 7L, Glomerular Filtration Rate > 60.0, Blood Urea Nitrogen 14, Creatinine 0.78, Sodium Level 143, Potassium Level 3.7, Chloride Level 113H, Carbon Dioxide Level 23, Calcium Level 8.0L, Aspartate Amino Transf (AST/SGOT) 15, Alanine Aminotransferase (ALT/SGPT) 21, Alkaline Phosphatase 121H, Total Bilirubin 0.2, Total Protein 6.4, Albumin 3.1L, Albumin/Globulin Ratio 0.94L 09/22/17 06:10: Bedside Glucose (Misc Panel) 107H 09/22/17 07:04: Bedside Glucose (Misc Panel) 100 09/22/17 07:56: Bedside Glucose (Misc Panel) 108H 09/22/17 09:09: Bedside Glucose (Misc Panel) 102 09/22/17 09:57: Bedside Glucose (Misc Panel) 106H CBC/BMP Laboratory Tests 09/22/17 04:57 Red Blood Count 4.44, Mean Corpuscular Volume 97.7 H, Mean Corpuscular Hemoglobin 31.8, Mean Corpuscular Hemoglobin Concent 32.5, Red Cell Distribution Width 13.2, Neutrophils (%) (Auto) 39.9, Lymphocytes (%) (Auto) 45.8 H, Monocytes (%) (Auto) 10.9 H, Eosinophils (%) (Auto) 2.4, Basophils (%) ( Auto) 0.8, Neutrophils # (Auto) 2.0, Lymphocytes # (Auto) 2.3, Monocytes # (Auto ) 0.6, Eosinophils # (Auto) 0.1, Basophils # (Auto) 0.0, Calcium Level 8.0 L, Aspartate Amino Transf (AST/SGOT) 15, Alanine Aminotransferase (ALT/SGPT) 21, Alkaline Phosphatase 121 H, Total Bilirubin 0.2, Total Protein 6.4, Albumin 3.1 L Microbiology Microbiology 09/20/17 Blood Culture - Preliminary, Resulted No growth after 24 hours . All specim... 09/20/17 Urine Culture - Final, Complete Escherichia Coli JINNY OLSEN PA-C Sep 22, 2017 11:13
[2017-09-22 12:00] VITALS: BP 112/68
--- NOTE | 2017-09-22 15:01 | IPN ---
DATE: 09/22/2017 This note is a supplement to the previous note from Bouchra Billings PA-C from earlier today. Lesley's MRI scans returned unremarkable. No sign of insulinoma. She continues to have spontaneous hypoglycemia that has been going on since February. Her blood sugar on admission was 34. This was after an overnight fast, actually having a sleep study done. She took her whole glucagon which she keeps at home and has to use several times a week. She was brought to the emergency room. Despite the glucagon her blood sugar was 34 on arrival. She responded to intravenous glucose. She has been having these episodes recurrently. She was hospitalized for this in February. Insulin levels were drawn in November when she started having hypoglycemia. Free insulin and total insulin were reportedly normal. I am not sure what the blood sugar was at the time these were obtained. Blood sugar was 59 on that admission. She had a C peptide proinsulin and insulin level drawn during the evening after she was admitted on 09/20, so these were not done at the time of an event. She has had insulin levels drawn when she has been symptomatic and hypoglycemic. There has been no insulinoma demonstrated on MRI scan. 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 Diagnostic test for this was apparently selective arterial calcium stimulation test (SACST) to try to localize the area of hypersecretion of insulin. This is not a procedure that is available at our facility. We also do not have an business development officer on staff available for consultation. With the patient's permission, I made to call to [facility]. She is now on the transfer center list. Apparently the facility is full and they do not expect a bed opening in the next day or so. In the meantime, she will stay in a monitored setting with hourly fingerstick blood sugars. She is on D10 half normal saline drip at 75 mL per hour and still having a blood sugar of only 80 on fingerstick during our rounds. Other possibilities include a nonpancreatic insulinoma, late dumping syndrome. 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 Factitious hypoglycemia is unlikely if she is i a monitored setting and is having this occur recurrently. She did have a urine for sulfonylureas ordered and that is pending.
[2017-09-22 16:00] VITALS: BP 122/74
[2017-09-22] MEDS: WARFARIN SOD 5 MG TAB PO SCH (16:16)
[2017-09-22 20:00] VITALS: BP 118/86
[2017-09-23] VITALS: BP 100/53
[2017-09-23] MEDS: D10W/0.45% SODIUM CHLORIDE 1,000 ML IV SCH (00:23)
[2017-09-23 04:00] VITALS: BP 120/69
[2017-09-23] MEDS: IPRATROPIUM 0.5MG/ALBUTEROL 2.5MG INH SOL UD 3ML (DUONEB)(J7620) NEB PRN (04:11)
[2017-09-23] MEDS: ACETAMINOPHEN TAB 650MG DOSE (2X325MG) PO PRN ×2 (05:33→15:25)
[2017-09-23 05:48] LABS: BASO % 0.8 % (0.0-1.0); EOS # 0.1 10^3/uL (0.0-0.50); EOS % 2.6 % (0.0-3.0); IMMATURE GRANULOCYTE % 0.4 % (0-0); LYMPH # 2.6 10^3/uL (1.5-4.5); LYMPH % 49.5 % (24.0-44.0); MEAN CORPUSCULAR HEMOGLOBIN 31.7 pg (27.0-33.0); MEAN CORPUSCULAR HGB CONC 32.3 g/dl (32.0-36.5); MEAN CORPUSCULAR VOLUME 98.3 fl (80.0-96.0); MONO # 0.6 10^3/uL (0.0-0.8); MONO % 10.5 % (0.0-5.0); NEUTROPHILS # 1.9 10^3/uL (1.8-7.7); NEUTROPHILS % 36.2 % (36.0-66.0); PLATELET COUNT, AUTOMATED 222 10^3/uL (150-450); RED CELL DISTRIBUTION WIDTH 13.1 % (11.5-14.5); WHITE BLOOD COUNT 5.3 10^3/uL (4.0-10.0)
[2017-09-23 06:01] LABS: INR 2.41
[2017-09-23 06:12] LABS: ALBUMIN 3.5 GM/DL (3.2-5.2); ALKALINE PHOSPHATASE 128 U/L (45-117); ALT/SGPT 25 U/L (12-78); ANION GAP 7 MEQ/L (8-16); AST/SGOT 20 U/L (7-37); BILIRUBIN,TOTAL 0.2 MG/DL (0.2-1.0); BLOOD UREA NITROGEN 16 MG/DL (7-18); CALCIUM LEVEL 8.2 MG/DL (8.5-10.1); CARBON DIOXIDE LEVEL 26 MEQ/L (21-32); CHLORIDE LEVEL 110 MEQ/L (98-107); CREATININE FOR GFR 0.84 MG/DL (0.55-1.02); GLOMERULAR FILTRATION RATE > 60.0 (>51); GLUCOSE, FASTING 67 MG/DL (70-105); POTASSIUM SERUM 3.3 MEQ/L (3.5-5.1); SODIUM LEVEL 143 MEQ/L (136-145)
[2017-09-23 08:00] VITALS: BP 99/56
[2017-09-23] MEDS: GABAPENTIN 300 MG CAP PO SCH ×3 (08:22→20:54)
[2017-09-23] MEDS: SENNA 8.6 MG TAB (SENOKOT) PO SCH ×2 (08:22→20:55)
[2017-09-23] MEDS: DOCUSATE SODIUM 100 MG CAP PO SCH ×2 (08:22→20:53)
[2017-09-23] MEDS: BACLOFEN 10 MG TAB PO SCH ×3 (08:23→20:54)
[2017-09-23] MEDS: SPIRONOLACTONE 25 MG TAB PO SCH (08:23)
[2017-09-23] MEDS: CEPHALEXIN 500 MG CAP PO SCH ×2 (08:23→20:53)
[2017-09-23] MEDS: DULoxetine 30 MG CAP (CYMBALTA) PO SCH (08:23)
[2017-09-23] MEDS: FUROSEMIDE 80 MG TAB PO SCH (08:23)
[2017-09-23] MEDS: TOPIRAMATE (TopAMAX) 100 MG TAB PO SCH ×2 (08:23→20:55)
[2017-09-23] MEDS: NICOTINE 7 MG/24 HR TRANSDERMAL TD SCH (10:01)
[2017-09-23 12:00] VITALS: BP 100/57
[2017-09-23] MEDS: POTASSIUM CHLORIDE 10 MEQ SR TABLET PO SCH ×2 (13:25→15:25)
[2017-09-23 16:00] VITALS: BP 106/55
[2017-09-23] MEDS: WARFARIN SOD 5 MG TAB PO SCH (16:48)
--- NOTE | 2017-09-23 17:02 | IPNPDOC ---
Subjective Date Seen The patient was seen on 09/23/17. Subjective Chief Complaint/HPI The patient is a 52-year-old female admitted with a reason for visit of Hypoglycemia. Events since last encounter Patient had a episode of hypoglycemia this morning around 8 AM. Blood sugar was 59. Labs were drawn before patient was given anything to eat or drink. Patient is also reporting an episode of chest pain this morning. Episode lasted 5-10 minutes and resolved with relaxation and breathing. Pain was located in the front of her chest. General: Reports: Night Sweats (with lotion) Constitutional: Reports: Chills (with low sugar) Pulmonary: Reports: Other Symptoms (positive for wheezing which is helped with nebulizers), Denies: Dyspnea Musculoskeletal: Reports: Leg Pain Objective Physical Examination General Exam: Positive: Alert, No Acute Distress ENT Exam: Positive: Mucous membr. moist/pink Chest Exam: Positive: Normal air movement, Negative: Clear to auscultation, Rales, Rhonchi, Wheezing Heart Exam: Positive: Rate Normal, Regular Rhythm, Normal S1, Normal S2, Negative: Gallops, Murmurs, Rubs Abdomen Exam: Positive: Normal bowel sounds, Soft, Negative: Tenderness, Hepatospenomegaly, Mass Extremity Exam: Positive: Tenderness, Negative: Swelling RAD Interpretation STUDY: MRI:No evidence of pancreatic nodule or mass. Mildly prominent common bile duct in this patient status post cholecystectomy as expected in a patient this age Rad Actions: Report Reviewed, Discussed with the pt RAD Interpretation: Normal Assessment /Plan Problems (1) Hypoglycemia Status: Acute Response to Treatment: Stable Problem Text: 09/23: MRI results were negative. Patient did experience one episode of hypoglycemia this morning, blood sugar 59. Labs (insulin, C-peptide, IGF 1 and 2) were obtained prior to patient having anything to eat or drink. 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 Patient is currently on a waiting list at [facility] for bed. Plan will be to transfer patient for further evaluation and treatment to [facility] when a bed is available. 09/22 MRI abd results pending. No further hypoglycemia, she is however drinking Mt Dew and on D10 IV. She cont to have FSBS q1h. Diet changed from cons carb to regular. 09/21: Etiology of recurrent hypoglycemic episodes is unclear at this time. Patient has not had any further hypoglycemic episodes since admission. We will continue to monitor with every hour fingerstick blood sugars. If she develops hypoglycemia (blood sugar less than 60) we will repeat insulin, C-peptide, IGF 1 and 2 levels. She is scheduled to have MRI of her abdomen performed today. We will follow up results from it MRI when available. (2) Hypokalemia Problem Text: 09/23: Patient with potassium of 3.3 today. She'll be given 40 meqs of oral KCl 2 doses. Repeat BMP tomorrow (3) Chest pain Problem Text: 09/23: Patient with single episode of chest pain this morning. She has not had any recurrence of pain. She was counseled that if she develops recurrence of chest pain she should inform her nurse so that an EKG may be obtained. (4) Urinary tract infection Status: Acute Response to Treatment: Stable Problem Text: Patient has been on cephalexin since 09/16. (5) Hypertension Status: Chronic Response to Treatment: Stable Problem Text: Continue Lasix, spironolactone (6) History of depression Status: Chronic Response to Treatment: Stable Problem Text: Continue Cymbalta (7) History of diabetic neuropathy Status: Chronic Response to Treatment: Stable Problem Text: Continue gabapentin 600 mg 3 times a day (8) History of factor V Leiden mutation Status: Chronic Response to Treatment: Stable Problem Text: 09/23: INR of 2.41 today, continue current Coumadin dosing 09/21: Currently on Coumadin 10 mg Thursday, Thursday, Thursday, , Thursday , 5 mg Thursday, Thursday. INR of 2.84 today. Continue current medication dosing (9) History of asthma Status: Chronic Response to Treatment: Stable Problem Text: Continue albuterol puffer as needed, started nebs today, Arnuity at home, isn't available inpt. (10) DVT prophylaxis Problem Text: Currently on Coumadin Plan/VTE VTE Prophylaxis Ordered?: Yes Plan Diet: Continue Current Diagnostics: MRI VS, I&O, 24H, Fishbone Vital Signs/I&O Vital Signs Date Time Temp Pulse Resp B/P (MAP) Pulse Ox O2 Delivery O2 Flow Rate FiO2 09/23/17 16:00 98.5 74 20 106/55 (72) 97 Room Air I&O- Last 24 Hours up to 6 AM 09/24/17 06:00 Intake Total 1150 ml Output Total 1000 ml Balance 150 ml Laboratory Data 24H LABS Laboratory Tests 2 09/22/17 17:13: Bedside Glucose (Misc Panel) 93 09/22/17 18:03: Bedside Glucose (Misc Panel) 108H 09/22/17 18:58: Bedside Glucose (Misc Panel) 127H 09/22/17 20:08: Bedside Glucose (Misc Panel) 115H 09/22/17 21:24: Bedside Glucose (Misc Panel) 134H 09/22/17 22:25: Bedside Glucose (Misc Panel) 120H 09/23/17 00:02: Bedside Glucose (Misc Panel) 108H 09/23/17 01:14: Bedside Glucose (Misc Panel) 114H 09/23/17 02:12: Bedside Glucose (Misc Panel) 89 09/23/17 03:40: Bedside Glucose (Misc Panel) 82 09/23/17 05:29: Bedside Glucose (Misc Panel) 98 09/23/17 05:34: Immature Granulocyte % (Auto) 0.4H, White Blood Count 5.3, Red Blood Count 4.63 , Hemoglobin 14.7, Hematocrit 45.5, Mean Corpuscular Volume 98.3H, Mean Corpuscular Hemoglobin 31.7, Mean Corpuscular Hemoglobin Concent 32.3, Red Cell Distribution Width 13.1, Platelet Count 222, Neutrophils (%) (Auto) 36.2, Lymphocytes (%) (Auto) 49.5H, Monocytes (%) (Auto) 10.5H, Eosinophils (%) (Auto ) 2.6, Basophils (%) (Auto) 0.8, Neutrophils # (Auto) 1.9, Lymphocytes # (Auto) 2.6, Monocytes # (Auto) 0.6, Eosinophils # (Auto) 0.1, Basophils # (Auto) 0.0, Immature Granulocyte # (Auto) 0.0, Nucleated Red Blood Cells % (auto) 0.0, Prothrombin Time 27.2H, Prothromb Time International Ratio 2.41, Anion Gap 7L, Glomerular Filtration Rate > 60.0, Blood Urea Nitrogen 16, Creatinine 0.84, Sodium Level 143, Potassium Level 3.3L, Chloride Level 110H, Carbon Dioxide Level 26, Calcium Level 8.2L, Aspartate Amino Transf (AST/SGOT) 20, Alanine Aminotransferase (ALT/SGPT) 25, Alkaline Phosphatase 128H, Total Bilirubin 0.2, Total Protein 7.0, Albumin 3.5, Albumin/Globulin Ratio 1.00 09/23/17 06:17: Bedside Glucose (Misc Panel) 77 09/23/17 08:01: Bedside Glucose (Misc Panel) 59L 09/23/17 08:43: 09/23/17 08:56: Bedside Glucose (Misc Panel) 72 09/23/17 09:59: Bedside Glucose (Misc Panel) 105 09/23/17 11:08: Bedside Glucose (Misc Panel) 103 09/23/17 12:28: Bedside Glucose (Misc Panel) 97 09/23/17 13:24: Bedside Glucose (Misc Panel) 101 09/23/17 14:54: Bedside Glucose (Misc Panel) 81 09/23/17 16:00: Bedside Glucose (Misc Panel) 105 CBC/BMP Laboratory Tests 09/23/17 05:34 Red Blood Count 4.63, Mean Corpuscular Volume 98.3 H, Mean Corpuscular Hemoglobin 31.7, Mean Corpuscular Hemoglobin Concent 32.3, Red Cell Distribution Width 13.1, Neutrophils (%) (Auto) 36.2, Lymphocytes (%) (Auto) 49.5 H, Monocytes (%) (Auto) 10.5 H, Eosinophils (%) (Auto) 2.6, Basophils (%) ( Auto) 0.8, Neutrophils # (Auto) 1.9, Lymphocytes # (Auto) 2.6, Monocytes # (Auto ) 0.6, Eosinophils # (Auto) 0.1, Basophils # (Auto) 0.0, Calcium Level 8.2 L, Aspartate Amino Transf (AST/SGOT) 20, Alanine Aminotransferase (ALT/SGPT) 25, Alkaline Phosphatase 128 H, Total Bilirubin 0.2, Total Protein 7.0, Albumin 3.5 Microbiology Microbiology 09/20/17 Blood Culture - Preliminary, Resulted No Growth after 72 hours. All specime... 09/20/17 Urine Culture - Final, Complete Escherichia Coli GME ATTESTATION GME ATTESTATION My faculty preceptor for this patient encounter was physically present during the encounter and was fully available. All aspects of the patient interview, examination, medical decision making process, and medical care plan development were reviewed and approved by the faculty preceptor. The faculty preceptor is aware and concurs with the plan as stated in the body of this note and will attest to such by his/her cosignature. CYNTHIA MILLER DO Sep 23, 2017 17:02
[2017-09-23 20:10] VITALS: BP 119/58
[2017-09-24] VITALS (7 sets, daily range): BP systolic 93–121; BP diastolic 54–78
[2017-09-24] MEDS: D10W/0.45% SODIUM CHLORIDE 1,000 ML IV SCH ×2 (04:46→17:41)
[2017-09-24 04:54] LABS: BASO % 0.5 % (0.0-1.0); EOS # 0.1 10^3/uL (0.0-0.50); EOS % 3.4 % (0.0-3.0); IMMATURE GRANULOCYTE % 0.2 % (0-0); LYMPH # 2.2 10^3/uL (1.5-4.5); LYMPH % 53.2 % (24.0-44.0); MEAN CORPUSCULAR HEMOGLOBIN 32.2 pg (27.0-33.0); MEAN CORPUSCULAR VOLUME 97.6 fl (80.0-96.0); MONO # 0.4 10^3/uL (0.0-0.8); MONO % 8.7 % (0.0-5.0); NEUTROPHILS # 1.4 10^3/uL (1.8-7.7); PLATELET COUNT, AUTOMATED 190 10^3/uL (150-450); RED CELL DISTRIBUTION WIDTH 13.1 % (11.5-14.5); WHITE BLOOD COUNT 4.1 10^3/uL (4.0-10.0)
[2017-09-24 05:19] LABS: ALBUMIN 3.1 GM/DL (3.2-5.2); ALBUMIN/GLOBULIN RATIO 0.97 (1.00-1.93); ALKALINE PHOSPHATASE 110 U/L (45-117); ALT/SGPT 22 U/L (12-78); ANION GAP 5 MEQ/L (8-16); AST/SGOT 18 U/L (7-37); BILIRUBIN,TOTAL 0.3 MG/DL (0.2-1.0); BLOOD UREA NITROGEN 11 MG/DL (7-18); CALCIUM LEVEL 8.2 MG/DL (8.5-10.1); CARBON DIOXIDE LEVEL 24 MEQ/L (21-32); CHLORIDE LEVEL 115 MEQ/L (98-107); CREATININE FOR GFR 0.75 MG/DL (0.55-1.02); GLOMERULAR FILTRATION RATE > 60.0 (>51); GLUCOSE, FASTING 105 MG/DL (70-105); POTASSIUM SERUM 3.9 MEQ/L (3.5-5.1); SODIUM LEVEL 144 MEQ/L (136-145); TOTAL PROTEIN 6.3 GM/DL (6.4-8.2)
[2017-09-24] MEDS: DOCUSATE SODIUM 100 MG CAP PO SCH ×2 (08:31→20:41)
[2017-09-24] MEDS: CEPHALEXIN 500 MG CAP PO SCH ×2 (08:31→20:41)
[2017-09-24] MEDS: GABAPENTIN 300 MG CAP PO SCH ×3 (08:32→20:42)
[2017-09-24] MEDS: TOPIRAMATE (TopAMAX) 100 MG TAB PO SCH ×2 (08:32→20:44)
[2017-09-24] MEDS: SENNA 8.6 MG TAB (SENOKOT) PO SCH ×2 (08:32→20:44)
[2017-09-24] MEDS: FUROSEMIDE 80 MG TAB PO SCH (08:32)
[2017-09-24] MEDS: BACLOFEN 10 MG TAB PO SCH ×3 (08:32→20:42)
[2017-09-24] MEDS: DULoxetine 30 MG CAP (CYMBALTA) PO SCH (08:32)
[2017-09-24] MEDS: SPIRONOLACTONE 25 MG TAB PO SCH (08:32)
[2017-09-24] MEDS: ACETAMINOPHEN TAB 650MG DOSE (2X325MG) PO PRN ×2 (08:33→17:42)
[2017-09-24] MEDS: NICOTINE 21MG/24HR 1 EA TRANSDERMAL TD SCH (08:41)
--- NOTE | 2017-09-24 16:29 | IPNPDOC ---
Subjective Date Seen The patient was seen on 09/24/17. Subjective Chief Complaint/HPI The patient is a 52-year-old female admitted with a reason for visit of Hypoglycemia. Events since last encounter She reports that overall she is doing good today. She is complaining of occasional chills and sweats. She again is complaining of having an episode of chest pain this morning when she woke up. She attributes chest pain to stress. Chest pain resolved without any intervention. She is also complaining of wheezing. Objective Physical Examination General Exam: Positive: Alert, No Acute Distress Chest Exam: Positive: Normal air movement, Wheezing (bilateral), Negative: Rales, Rhonchi Heart Exam: Positive: Rate Normal, Regular Rhythm, Normal S1, Normal S2, Negative: Gallops, Murmurs, Rubs Abdomen Exam: Positive: Normal bowel sounds, Soft, Negative: Tenderness, Hepatospenomegaly, Mass Extremity Exam: Positive: Tenderness, Negative: Swelling Assessment /Plan Problems (1) Hypoglycemia Status: Acute Response to Treatment: Stable Problem Text: 09/24: No hypoglycemic episodes yesterday. Patient is still pending transfer to [facility]. Order for fingersticks changed to every 2 hours with parameter at that if patient is symptomatic or if blood sugar is less than 70 fingersticks should be done every hour. 09/23: MRI results were negative. Patient did experience one episode of hypoglycemia this morning, blood sugar 59. Labs (insulin, C-peptide, IGF 1 and 2 ) were obtained prior to patient having anything to eat or drink. 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 Patient is currently on a waiting list at [facility] for bed. Plan will be to transfer patient for further evaluation and treatment to [facility] when a bed is available. 09/22 MRI abd results pending. No further hypoglycemia, she is however drinking Mt Dew and on D10 IV. She cont to have FSBS q1h. Diet changed from cons carb to regular. 09/21: Etiology of recurrent hypoglycemic episodes is unclear at this time. Patient has not had any further hypoglycemic episodes since admission. We will continue to monitor with every hour fingerstick blood sugars. If she develops hypoglycemia (blood sugar less than 60) we will repeat insulin, C-peptide, IGF 1 and 2 levels. She is scheduled to have MRI of her abdomen performed today. We will follow up results from it MRI when available. (2) Hypokalemia Problem Text: 09/24: Potassium of 3.9 today. Continue to monitor. 09/23: Patient with potassium of 3.3 today. She'll be given 40 meqs of oral KCl 2 doses. Repeat BMP tomorrow (3) Chest pain Problem Text: 09/24: Patient again reported an episode of chest pain is morning , likely attributed to stress. Chest pain resolved without any intervention. Continue to monitor. 09/23: Patient with single episode of chest pain this morning. She has not had any recurrence of pain. She was counseled that if she develops recurrence of chest pain she should inform her nurse so that an EKG may be obtained. (4) Urinary tract infection Status: Acute Response to Treatment: Stable Problem Text: Patient has been on cephalexin since 09/16. (5) Hypertension Status: Chronic Response to Treatment: Stable Problem Text: Continue Lasix, spironolactone (6) History of depression Status: Chronic Response to Treatment: Stable Problem Text: Continue Cymbalta (7) History of diabetic neuropathy Status: Chronic Response to Treatment: Stable Problem Text: Continue gabapentin 600 mg 3 times a day (8) History of factor V Leiden mutation Status: Chronic Response to Treatment: Stable Problem Text: 09/23: INR of 2.41 today, continue current Coumadin dosing 09/21: Currently on Coumadin 10 mg Thursday, Thursday, Thursday, , Thursday , 5 mg Thursday, Thursday. INR of 2.84 today. Continue current medication dosing (9) Cigarette nicotine dependence, uncomplicated Problem Text: 09/24: Patient reports that she has been smoking approximately 2 packs per day, order placed for 21 mg nicotine patch daily (10) History of asthma Status: Chronic Response to Treatment: Stable Problem Text: Continue albuterol puffer as needed, started nebs today, Arnuity at home, isn't available inpt. (11) DVT prophylaxis Problem Text: Currently on Coumadin Plan/VTE VTE Prophylaxis Ordered?: Yes Plan Diet: Continue Current Diagnostics: MRI VS, I&O, 24H, Fishbone Vital Signs/I&O Vital Signs Date Time Temp Pulse Resp B/P (MAP) Pulse Ox O2 Delivery O2 Flow Rate FiO2 09/24/17 08:00 97.8 53 21 106/59 (75) 96 Room Air I&O- Last 24 Hours up to 6 AM 09/25/17 06:00 Intake Total 1500 ml Output Total 1000 ml Balance 500 ml Laboratory Data 24H LABS Laboratory Tests 2 09/23/17 16:50: Bedside Glucose (Misc Panel) 123H 09/23/17 18:01: Bedside Glucose (Misc Panel) 107H 09/23/17 20:04: Bedside Glucose (Misc Panel) 91 09/23/17 21:25: Bedside Glucose (Misc Panel) 94 09/23/17 22:20: Bedside Glucose (Misc Panel) 112H 09/24/17 00:36: Bedside Glucose (Misc Panel) 92 09/24/17 01:48: Bedside Glucose (Misc Panel) 102 09/24/17 02:59: Bedside Glucose (Misc Panel) 92 09/24/17 04:09: Bedside Glucose (Misc Panel) 96 09/24/17 04:45: Immature Granulocyte % (Auto) 0.2H, White Blood Count 4.1, Red Blood Count 4.19 , Hemoglobin 13.5, Hematocrit 40.9, Mean Corpuscular Volume 97.6H, Mean Corpuscular Hemoglobin 32.2, Mean Corpuscular Hemoglobin Concent 33.0, Red Cell Distribution Width 13.1, Platelet Count 190, Neutrophils (%) (Auto) 34.0L, Lymphocytes (%) (Auto) 53.2H, Monocytes (%) (Auto) 8.7H, Eosinophils (%) (Auto) 3.4H, Basophils (%) (Auto) 0.5, Neutrophils # (Auto) 1.4L, Lymphocytes # (Auto) 2.2, Monocytes # (Auto) 0.4, Eosinophils # (Auto) 0.1, Basophils # (Auto) 0.0, Immature Granulocyte # (Auto) 0.0, Nucleated Red Blood Cells % (auto) 0.0, Anion Gap 5L, Glomerular Filtration Rate > 60.0, Blood Urea Nitrogen 11, Creatinine 0.75, Sodium Level 144, Potassium Level 3.9, Chloride Level 115H, Carbon Dioxide Level 24, Calcium Level 8.2L, Aspartate Amino Transf (AST/SGOT) 18, Alanine Aminotransferase (ALT/SGPT) 22, Alkaline Phosphatase 110, Total Bilirubin 0.3, Total Protein 6.3L, Albumin 3.1L, Albumin/Globulin Ratio 0.97L 09/24/17 05:46: Bedside Glucose (Misc Panel) 103 09/24/17 06:41: Bedside Glucose (Misc Panel) 94 09/24/17 08:01: Bedside Glucose (Misc Panel) 90 09/24/17 09:28: Bedside Glucose (Misc Panel) 119H 09/24/17 10:10: Bedside Glucose (Misc Panel) 87 09/24/17 11:19: Bedside Glucose (Misc Panel) 92 09/24/17 12:02: Bedside Glucose (Misc Panel) 106H 09/24/17 13:59: Bedside Glucose (Misc Panel) 104 CBC/BMP Laboratory Tests 09/24/17 04:45 Red Blood Count 4.19, Mean Corpuscular Volume 97.6 H, Mean Corpuscular Hemoglobin 32.2, Mean Corpuscular Hemoglobin Concent 33.0, Red Cell Distribution Width 13.1, Neutrophils (%) (Auto) 34.0 L, Lymphocytes (%) (Auto) 53.2 H, Monocytes (%) (Auto) 8.7 H, Eosinophils (%) (Auto) 3.4 H, Basophils (%) (Auto) 0.5, Neutrophils # (Auto) 1.4 L, Lymphocytes # (Auto) 2.2, Monocytes # ( Auto) 0.4, Eosinophils # (Auto) 0.1, Basophils # (Auto) 0.0, Calcium Level 8.2 L , Aspartate Amino Transf (AST/SGOT) 18, Alanine Aminotransferase (ALT/SGPT) 22, Alkaline Phosphatase 110, Total Bilirubin 0.3, Total Protein 6.3 L, Albumin 3.1 L Microbiology Microbiology 09/20/17 Blood Culture - Preliminary, Resulted No Growth after 72 hours. All specime... 09/20/17 Urine Culture - Final, Complete Escherichia Coli GME ATTESTATION GME ATTESTATION My faculty preceptor for this patient encounter was physically present during the encounter and was fully available. All aspects of the patient interview, examination, medical decision making process, and medical care plan development were reviewed and approved by the faculty preceptor. The faculty preceptor is aware and concurs with the plan as stated in the body of this note and will attest to such by his/her cosignature. CYNTHIA MILLER DO Sep 24, 2017 16:29
[2017-09-24] MEDS: WARFARIN SOD 5 MG TAB PO SCH (17:41)
[2017-09-25] MEDS: IPRATROPIUM 0.5MG/ALBUTEROL 2.5MG INH SOL UD 3ML (DUONEB)(J7620) NEB PRN ×2 (00:36→10:38)
[2017-09-25] MEDS: ACETAMINOPHEN TAB 650MG DOSE (2X325MG) PO PRN ×3 (03:51→14:05)
[2017-09-25 03:52] VITALS: BP 103/65
[2017-09-25 05:02] LABS: BASO # 0.1 10^3/uL (0.0-0.2); BASO % 1.1 % (0.0-1.0); EOS # 0.1 10^3/uL (0.0-0.50); EOS % 2.6 % (0.0-3.0); IMMATURE GRANULOCYTE % 0.4 % (0-0); LYMPH # 2.4 10^3/uL (1.5-4.5); LYMPH % 50.4 % (24.0-44.0); MEAN CORPUSCULAR HEMOGLOBIN 31.8 pg (27.0-33.0); MEAN CORPUSCULAR HGB CONC 32.6 g/dl (32.0-36.5); MEAN CORPUSCULAR VOLUME 97.5 fl (80.0-96.0); MONO # 0.6 10^3/uL (0.0-0.8); MONO % 11.7 % (0.0-5.0); NEUTROPHILS # 1.6 10^3/uL (1.8-7.7); NEUTROPHILS % 33.8 % (36.0-66.0); PLATELET COUNT, AUTOMATED 179 10^3/uL (150-450); RED CELL DISTRIBUTION WIDTH 12.9 % (11.5-14.5); WHITE BLOOD COUNT 4.7 10^3/uL (4.0-10.0)
[2017-09-25 05:17] LABS: INR 2.23
[2017-09-25 05:20] LABS: ALBUMIN 2.9 GM/DL (3.2-5.2); ALBUMIN/GLOBULIN RATIO 0.97 (1.00-1.93); ALKALINE PHOSPHATASE 102 U/L (45-117); ALT/SGPT 28 U/L (12-78); ANION GAP 8 MEQ/L (8-16); AST/SGOT 24 U/L (7-37); BILIRUBIN,TOTAL 0.2 MG/DL (0.2-1.0); BLOOD UREA NITROGEN 12 MG/DL (7-18); CALCIUM LEVEL 7.7 MG/DL (8.5-10.1); CARBON DIOXIDE LEVEL 24 MEQ/L (21-32); CHLORIDE LEVEL 113 MEQ/L (98-107); CREATININE FOR GFR 0.69 MG/DL (0.55-1.02); GLOMERULAR FILTRATION RATE > 60.0 (>51); GLUCOSE, FASTING 95 MG/DL (70-105); POTASSIUM SERUM 3.7 MEQ/L (3.5-5.1); SODIUM LEVEL 145 MEQ/L (136-145); TOTAL PROTEIN 5.9 GM/DL (6.4-8.2)
[2017-09-25] MEDS: NORCO, ANEXSIA 5/325MG TABLET (HYDROcodone/ACETAMINOPHEN) PO PRN ×3 (07:26→19:54)
[2017-09-25 08:00] VITALS: BP 111/73
[2017-09-25] MEDS: SPIRONOLACTONE 25 MG TAB PO SCH (08:22)
[2017-09-25] MEDS: DOCUSATE SODIUM 100 MG CAP PO SCH ×2 (08:22→21:46)
[2017-09-25] MEDS: CEPHALEXIN 500 MG CAP PO SCH ×2 (08:22→21:47)
[2017-09-25] MEDS: SENNA 8.6 MG TAB (SENOKOT) PO SCH ×2 (08:22→21:46)
[2017-09-25] MEDS: NICOTINE 21MG/24HR 1 EA TRANSDERMAL TD SCH (08:22)
[2017-09-25] MEDS: BACLOFEN 10 MG TAB PO SCH ×3 (08:22→21:47)
[2017-09-25] MEDS: FUROSEMIDE 80 MG TAB PO SCH (08:23)
[2017-09-25] MEDS: TOPIRAMATE (TopAMAX) 100 MG TAB PO SCH ×2 (08:23→21:47)
[2017-09-25] MEDS: DULoxetine 30 MG CAP (CYMBALTA) PO SCH (08:23)
[2017-09-25] MEDS: GABAPENTIN 300 MG CAP PO SCH ×3 (08:23→21:47)
--- NOTE | 2017-09-25 09:11 | IPN ---
DATE OF SERVICE: 09/25/2017 Lesley is seen in intensive care unit (ICU). She is ICU due to requirement for placement there due to hourly fingerstick blood sugars that requires frequent blood sugar monitoring and she has had spontaneous unprovoked hypoglycemia occurring during this hospitalization including blood sugar of 59 despite being on a D10 infusion. We are awaiting for transfer to [facility]. 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 (Specifically we are working hypothesis as she needs to be ruled out for noninsulinoma pancreatogenous hypoglycemia syndrome (NIPHS). Insulinoma has been evaluated with MR of the pancreas which was unremarkable. She has toxicology screen for surreptitious use of oral hypoglycemics that is pending but that possibility is unlikely. She has had insulin and C-peptide levels drawn on admission and during the spontaneous hypoglycemic episode alluded to above and those are pending. Transfer to [facility] was initiated earlier in the week but there are no beds, being transferred for selective arterial catheterization and calcium stimulation testing to try to localize where in the pancreas the beta cell hyperplasia occurs as treatment. If this diagnosis is confirmed, would include selective pancreatectomy. Today, she has some back pain. Was not relieved by Tylenol. She is still on D10 drip, still with blood sugars that are hovering between 90 and 100. PHYSICAL EXAMINATION: Resting comfortably, did not look uncomfortable when I came in the room. Lungs: Clear. Heart: Regular rhythm. Abdomen: Soft. Low back is tender to palpate with some paravertebral spasm. No rash. No peripheral edema. LABS: Blood sugar this morning was 90. CMP unremarkable. Albumin is around 3. CBC unremarkable. PLAN: 1. We are waiting to transfer to [facility] for evaluation for suspected noninsulinoma pancreatogenous hypoglycemia syndrome. Further workup is not available at this facility. 2. Back pain. Heating pad, on [place], Tylenol. Encourage out of bed. The rest of her medical problems remain stable.
[2017-09-25 12:00] VITALS: BP 111/68
[2017-09-25 16:00] VITALS: BP 116/66
[2017-09-25] MEDS: WARFARIN SOD 5 MG TAB PO SCH (16:00)
[2017-09-25] MEDS: D10W/0.45% SODIUM CHLORIDE 1,000 ML IV SCH ×2 (19:41→19:43)
[2017-09-25 20:00] VITALS: BP 117/68
[2017-09-26] VITALS: BP 117/72
[2017-09-26] MEDS: NORCO, ANEXSIA 5/325MG TABLET (HYDROcodone/ACETAMINOPHEN) PO PRN ×2 (01:50→09:46)
[2017-09-26 04:00] VITALS: BP 103/63
[2017-09-26] MEDS: ACETAMINOPHEN TAB 650MG DOSE (2X325MG) PO PRN (04:26)
[2017-09-26 04:40] LABS: INR 2.83
[2017-09-26 04:53] LABS: ALBUMIN 2.9 GM/DL (3.2-5.2); ALBUMIN/GLOBULIN RATIO 1.04 (1.00-1.93); ALKALINE PHOSPHATASE 99 U/L (45-117); ALT/SGPT 29 U/L (12-78); ANION GAP 7 MEQ/L (8-16); AST/SGOT 23 U/L (7-37); BILIRUBIN,TOTAL 0.3 MG/DL (0.2-1.0); BLOOD UREA NITROGEN 13 MG/DL (7-18); CARBON DIOXIDE LEVEL 27 MEQ/L (21-32); CHLORIDE LEVEL 110 MEQ/L (98-107); CREATININE FOR GFR 0.69 MG/DL (0.55-1.02); GLOMERULAR FILTRATION RATE > 60.0 (>51); GLUCOSE, FASTING 102 MG/DL (70-105); POTASSIUM SERUM 3.9 MEQ/L (3.5-5.1); SODIUM LEVEL 144 MEQ/L (136-145); TOTAL PROTEIN 5.7 GM/DL (6.4-8.2)
[2017-09-26 08:00] VITALS: BP 115/75
[2017-09-26] MEDS: NICOTINE 21MG/24HR 1 EA TRANSDERMAL TD SCH (09:43)
[2017-09-26] MEDS: FUROSEMIDE 80 MG TAB PO SCH (09:44)
[2017-09-26] MEDS: DOCUSATE SODIUM 100 MG CAP PO SCH (09:44)
[2017-09-26] MEDS: GABAPENTIN 300 MG CAP PO SCH ×2 (09:44→16:13)
[2017-09-26] MEDS: DULoxetine 30 MG CAP (CYMBALTA) PO SCH (09:45)
[2017-09-26] MEDS: BACLOFEN 10 MG TAB PO SCH ×2 (09:47→16:13)
[2017-09-26] MEDS: SENNA 8.6 MG TAB (SENOKOT) PO SCH (09:47)
[2017-09-26] MEDS: TOPIRAMATE (TopAMAX) 100 MG TAB PO SCH (09:47)
[2017-09-26] MEDS: CEPHALEXIN 500 MG CAP PO SCH (09:47)
[2017-09-26] MEDS: SPIRONOLACTONE 25 MG TAB PO SCH (09:47)
[2017-09-26] MEDS: D10W/0.45% SODIUM CHLORIDE 1,000 ML IV SCH (09:48)
--- NOTE | 2017-09-26 11:06 | IPNPDOC ---
Subjective Date Seen The patient was seen on 09/26/17. Subjective Chief Complaint/HPI The patient is a 52-year-old female admitted with a reason for visit of Hypoglycemia. Events since last encounter Patient states she is doing all right today. She does not have any acute concerns other than still being here. Constitutional: Denies: Chills, Fever Pulmonary: Reports: Other Symptoms (positive wheezing) Cardiovascular: Denies: Chest Pain Objective Physical Examination General Exam: Positive: Alert, No Acute Distress Chest Exam: Positive: Normal air movement, Wheezing (bilateral), Negative: Rales, Rhonchi Heart Exam: Positive: Rate Normal, Regular Rhythm, Normal S1, Normal S2, Negative: Gallops, Murmurs, Rubs Abdomen Exam: Positive: Normal bowel sounds, Soft, Negative: Tenderness, Hepatospenomegaly, Mass Extremity Exam: Positive: Tenderness, Negative: Swelling Assessment /Plan Problems (1) Hypoglycemia Status: Acute Response to Treatment: Stable Problem Text: 09/26 [facility] advises no likely bed available and suggests we look elsewhere. Patient agreeable to [facility] since she has family in area. Contacted their transfer center and in minutes, ability to transfer confirmed. Dr. Weber, Hospitalist accepting. 09/26: No hypoglycemic episodes yesterday. Patient is still pending transfer to [facility]. Continue fingersticks every 2 hours 09/24: No hypoglycemic episodes yesterday. Patient is still pending transfer to [facility]. Order for fingersticks changed to every 2 hours with parameter at that if patient is symptomatic or if blood sugar is less than 70 fingersticks should be done every hour. 09/23: MRI results were negative. Patient did experience one episode of hypoglycemia this morning, blood sugar 59. Labs (insulin, C-peptide, IGF 1 and 2 ) were obtained prior to patient having anything to eat or drink. 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 Patient is currently on a waiting list at [facility] for bed. Plan will be to transfer patient for further evaluation and treatment to [facility] when a bed is available. 09/22 MRI abd results pending. No further hypoglycemia, she is however drinking Mt Dew and on D10 IV. She cont to have FSBS q1h. Diet changed from cons carb to regular. 09/21: Etiology of recurrent hypoglycemic episodes is unclear at this time. Patient has not had any further hypoglycemic episodes since admission. We will continue to monitor with every hour fingerstick blood sugars. If she develops hypoglycemia (blood sugar less than 60) we will repeat insulin, C-peptide, IGF 1 and 2 levels. She is scheduled to have MRI of her abdomen performed today. We will follow up results from it MRI when available. (2) Hypokalemia Problem Text: 09/26: Potassium of 3.9 today, continue to monitor 09/24: Potassium of 3.9 today. Continue to monitor. 09/23: Patient with potassium of 3.3 today. She'll be given 40 meqs of oral KCl 2 doses. Repeat BMP tomorrow (3) Chest pain Problem Text: 09/26: Patient not reporting any episodes of chest pain today 09/24: Patient again reported an episode of chest pain is morning, likely attributed to stress. Chest pain resolved without any intervention. Continue to monitor. 09/23: Patient with single episode of chest pain this morning. She has not had any recurrence of pain. She was counseled that if she develops recurrence of chest pain she should inform her nurse so that an EKG may be obtained. (4) Urinary tract infection Status: Acute Response to Treatment: Stable Problem Text: 09/26: Final day of Keflex will be 09/27 Patient has been on cephalexin since 09/16. (5) Hypertension Status: Chronic Response to Treatment: Stable Problem Text: Continue Lasix, spironolactone (6) History of depression Status: Chronic Response to Treatment: Stable Problem Text: Continue Cymbalta (7) History of diabetic neuropathy Status: Chronic Response to Treatment: Stable Problem Text: Continue gabapentin 600 mg 3 times a day (8) History of factor V Leiden mutation Status: Chronic Response to Treatment: Stable Problem Text: 09/26: INR of 2.8 today, continue current Coumadin dosing, continue to monitor 09/23: INR of 2.41 today, continue current Coumadin dosing 09/21: Currently on Coumadin 10 mg Thursday, Thursday, Thursday, , Thursday , 5 mg Thursday, Thursday. INR of 2.84 today. Continue current medication dosing (9) Cigarette nicotine dependence, uncomplicated Problem Text: 09/24: Patient reports that she has been smoking approximately 2 packs per day, order placed for 21 mg nicotine patch daily (10) History of asthma Status: Chronic Response to Treatment: Stable Problem Text: Continue albuterol puffer as needed, started nebs today, Arnuity at home, isn't available inpt. (11) DVT prophylaxis Problem Text: Currently on Coumadin Plan/VTE VTE Prophylaxis Ordered?: Yes Plan Diet: Continue Current Diagnostics: MRI Anticipated Discharge: Transfer ([facility] via ambulance today.) VS, I&O, 24H, Fishbone Vital Signs/I&O Vital Signs Date Time Temp Pulse Resp B/P (MAP) Pulse Ox O2 Delivery O2 Flow Rate FiO2 09/26/17 10:16 18 09/26/17 04:00 97.7 60 103/63 (76) 95 Room Air Laboratory Data 24H LABS Laboratory Tests 2 09/25/17 11:52: Bedside Glucose (Misc Panel) 95 09/25/17 13:54: Bedside Glucose (Misc Panel) 122H 09/25/17 15:57: Bedside Glucose (Misc Panel) 99 09/25/17 17:54: Bedside Glucose (Misc Panel) 111H 09/25/17 19:55: Bedside Glucose (Misc Panel) 107H 09/25/17 21:50: Bedside Glucose (Misc Panel) 119H 09/25/17 23:48: Bedside Glucose (Misc Panel) 102 09/26/17 01:47: Bedside Glucose (Misc Panel) 97 09/26/17 04:19: Prothrombin Time 31.0H, Prothromb Time International Ratio 2.83, Anion Gap 7L, Glomerular Filtration Rate > 60.0, Blood Urea Nitrogen 13, Creatinine 0.69, Sodium Level 144, Potassium Level 3.9, Chloride Level 110H, Carbon Dioxide Level 27, Calcium Level 8.0L, Aspartate Amino Transf (AST/SGOT) 23, Alanine Aminotransferase (ALT/SGPT) 29, Alkaline Phosphatase 99, Total Bilirubin 0.3, Total Protein 5.7L, Albumin 2.9L, Albumin/Globulin Ratio 1.04 09/26/17 04:22: Bedside Glucose (Misc Panel) 100 09/26/17 06:24: Bedside Glucose (Misc Panel) 90 09/26/17 08:06: Bedside Glucose (Misc Panel) 90 09/26/17 09:55: Bedside Glucose (Misc Panel) 95 CBC/BMP Laboratory Tests 09/26/17 04:19 Calcium Level 8.0 L, Aspartate Amino Transf (AST/SGOT) 23, Alanine Aminotransferase (ALT/SGPT) 29, Alkaline Phosphatase 99, Total Bilirubin 0.3, Total Protein 5.7 L, Albumin 2.9 L Microbiology Microbiology 09/20/17 Blood Culture - Final, Complete NO GROWTH AFTER 5 DAYS 09/20/17 Urine Culture - Final, Complete Escherichia Coli GME ATTESTATION GME ATTESTATION My faculty preceptor for this patient encounter was physically present during the encounter and was fully available. All aspects of the patient interview, examination, medical decision making process, and medical care plan development were reviewed and approved by the faculty preceptor. The faculty preceptor is aware and concurs with the plan as stated in the body of this note and will attest to such by his/her cosignature. CYNTHIA MILLER DO Sep 26, 2017 11:06 Tomy Samayoa MD Sep 26, 2017 15:32
[2017-09-26 12:00] VITALS: BP 116/87
[2017-09-26 15:49] VITALS: BP 131/98
--- NOTE | 2017-09-26 16:02 | DSES ---
DATE OF ADMISSION: 09/20/2017 DATE OF DISCHARGE: REASON FOR ADMISSION: The patient is a 52-year-old who underwent gastric bypass surgery in 2003. Over the past several years increasingly severely she has been suffering episodes of hypoglycemia. Previous search for insulinoma was fruitless, MRI was negative in the past and recently during this hospitalization as well. Search for hyper insulin state was negative with respect to looking for outpatient insulin levels. At this point she was admitted after severe and repeated episodes of hypoglycemia with required use of glucagon to help reverse the hypoglycemia. She has been eating frequently and does not skip meals. She is basically over the past few weeks finding herself needing to continuously take in sugar in the form of Mountain Dew or similar to maintain her sugar at the level that avoids the symptoms. She has a history of Factor V Leiden with a past history of DVTs. She has an IVC filter in place. She has had previous surgeries that included appendectomy, hysterectomy, and partial nephrectomy. She had a greater saphenous vein ablation in 2013. SOCIAL HISTORY: She is , lives in [place] with boyfriend and some family members. She does smoke about half a pack per day. She denies alcohol use. She has no illicit drug use by history. On admission a search for surreptitious use of hypoglycemia inducing agents was made but the studies for these are pending and results have not yet been returned from the lab. An insulin level, somatomedin C level was done on 09/23/2017, at 97 which is in normal range, insulin-like growth factor 2 is pending, calcium levels have been low 8.2 to 7.7. Albumin is 3.5 to 2.9. On day of discharge, potassium 3.9, chloride 110, AST, ALT and alkaline phosphatase are normal today. CBC: Hemoglobin 12.9, white count 4700, platelet count 179,000. Imaging studies included abdominal MRI which did not show evidence of pancreatic nodular mass, fairly prominent common bile duct is noted, and status post cholecystectomy, and a cyst in the upper pole of the kidney 1.3 cm, and the IVC filter was identified. CT of brain was done and showed minimal volume loss. No other structural anomaly and chest x-ray was reported to show no active disease. At the time of discharge, she is alert, pleasant, cooperative, stable blood pressure 116/87, pulse 72, respiratory rate 20, oxygen saturation 96% on room air. No fever at 97.6. ASSESSMENT: Recurrent severe hypoglycemia. Suspicion is that the patient may have a noninsulinoma pancreatogenous hypoglycemia syndrome secondary to hyperplasia pancreatic beta cells subsequent to gastric bypass surgery. She needs a diagnostic study which is selective arterial calcium stimulation test which is not available at this facility. The test localizes the area of hypersecretion within the pancreas which then can be resected, again pancreatic resection is not a surgical procedure available at this facility. Attempts have been made to transfer the patient to [facility] since that is the closest usual transfer site for this facility but no beds available and has not been available for many days. Therefore today we, with the patient's permission, contacted [facility] and they indicated they can take the patient promptly and we will proceed gratefully to get her to a facility that can offer her the diagnostic study she needs to hopefully sort out this diagnostic problem and to render definitive therapy. The patient is agreeable to transfer, she will be transferred via ambulance, to transport with D10 half normal running at 75/hour with as needed use of D50 and oral glucose to help maintain euglycemia. 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
[2017-09-26] MEDS: WARFARIN SOD 5 MG TAB PO SCH (16:14)
[2017-09-26 17:10] VITALS: BP 131/88
[2017-09-29 00:07] LABS: ACETOHEXAMIDE Negative ug/mL (20-60); CHLORPROPAMIDE Negative ug/mL (75-250); GLIMEPIRIDE Negative ng/mL (80-250); GLIPIZIDE Negative ng/mL (200-1000); GLYBURIDE Negative ng/mL (UP TO 1500); NATEGLINIDE Negative ng/mL (UP TO 10000); REPAGLINIDE Negative ng/mL (UP TO 200); TOLAZAMIDE Negative ug/mL (UP TO 80); TOLBUTAMIDE Negative ug/mL (40-100)
== END 2017-09-26 17:20 | disposition short-term general hospital (02) | DRG 424 ==
LOC: M ED 06:37 → M ED INP 14:40 → M ICU 20:24
PROVIDERS: ADMIT Family Medicine; ATTEND Family Medicine
DX: E16.9 Disorder of pancreatic internal secretion, unspecified (principal); E11.649 Type 2 diabetes mellitus with hypoglycemia without coma; E11.40 Type 2 diabetes mellitus with diabetic neuropathy, unspecified; D68.2 Hereditary deficiency of other clotting factors; N39.0 Urinary tract infection, site not specified; Z68.41 Body mass index [BMI] 40.0-44.9, adult; E66.9 Obesity, unspecified; G43.109 Migraine with aura, not intractable, without status migrainosus; F17.210 Nicotine dependence, cigarettes, uncomplicated; I10 Essential (primary) hypertension; M54.9 Dorsalgia, unspecified; F32.9 Major depressive disorder, single episode, unspecified; J45.909 Unspecified asthma, uncomplicated; Z79.01 Long term (current) use of anticoagulants; Z98.84 Bariatric surgery status; Z86.73 Personal history of transient ischemic attack (TIA), and cerebral infarction without residual deficits; Z79.899 Other long term (current) drug therapy; Z88.0 Allergy status to penicillin; Z88.8 Allergy status to other drugs, medicaments and biological substances; Z86.718 Personal history of other venous thrombosis and embolism; Z95.828 Presence of other vascular implants and grafts

== ENCOUNTER → 2017-10-21 | Outpatient (REF) | payer OTHER ==
[~2017-10-21] MED LIST changes: +ENAB15TA PO; +WARF-23 PO
[2017-10-21 13:24] LABS: INR 3.03
== END ==
LOC: M LAB REF 12:50
PROVIDERS: ATTEND Family Medicine
DX: Z51.81 Encounter for therapeutic drug level monitoring (principal); Z79.01 Long term (current) use of anticoagulants

== ENCOUNTER → 2018-06-30 | Outpatient (REF) | payer MEDICAID ==
[2018-06-30 13:43] LABS: PROTHROMBIN TIME 35.1 SECONDS (12.1-14.4)
== END ==
LOC: M LAB REF 12:59
DX: Z79.01 Long term (current) use of anticoagulants (principal)

== ENCOUNTER → 2018-09-28 | Outpatient (REF) | payer MEDICAID ==
[2018-09-29 11:43] LABS: HEMATOCRIT 44.1 % (36.0-47.0); HEMOGLOBIN 14.8 g/dl (12.0-15.5); MEAN CORPUSCULAR HGB CONC 33.6 g/dl (32.0-36.5); MEAN CORPUSCULAR VOLUME 95.2 fl (80.0-96.0); PLATELET COUNT, AUTOMATED 224 10^3/uL (150-450); RED BLOOD COUNT 4.63 10^6/uL (4.00-5.40); RED CELL DISTRIBUTION WIDTH 12.6 % (11.5-14.5); WHITE BLOOD COUNT 4.6 10^3/uL (4.0-10.0)
[2018-09-29 12:08] LABS: ALBUMIN 3.7 GM/DL (3.2-5.2); ALBUMIN/GLOBULIN RATIO 1.32 (1.00-1.93); ALKALINE PHOSPHATASE 110 U/L (45-117); ALT/SGPT 16 U/L (12-78); ANION GAP 7 MEQ/L (8-16); AST/SGOT 16 U/L (7-37); BILIRUBIN,TOTAL 0.4 MG/DL (0.2-1.0); BLOOD UREA NITROGEN 9 MG/DL (7-18); CALCIUM LEVEL 8.3 MG/DL (8.5-10.1); CARBON DIOXIDE LEVEL 25 MEQ/L (21-32); CHLORIDE LEVEL 114 MEQ/L (98-107); CREATININE FOR GFR 0.78 MG/DL (0.55-1.30); FREE T4 0.79 NG/DL (0.76-1.46); GLOMERULAR FILTRATION RATE > 60.0 (>51); GLUCOSE, FASTING 88 MG/DL (70-100); POTASSIUM SERUM 3.9 MEQ/L (3.5-5.1); SODIUM LEVEL 146 MEQ/L (136-145); TOTAL PROTEIN 6.5 GM/DL (6.4-8.2)
[2018-09-29 13:20] LABS: ESTIMATED AVERAGE GLUCOSE 105 MG/DL (60-110); HEMOGLOBIN A1c 5.3 %
== END ==
LOC: M SFHCCLAY 14:13
DX: E16.1 Other hypoglycemia (principal); Z98.84 Bariatric surgery status
CPT/HCPCS: 84443

== ENCOUNTER → 2019-01-26 | Outpatient (REF) | payer MEDICAID ==
[~2019-01-26] MED LIST changes: -DRIS50002 PO; +DRIS50003 PO; -GABA600T PO; +GABA600T4 PO; +KLOR20TA42 PO; -LOTR1CRE11 TOP; +LOTR1CRE12 TOP; -POTA20TA PO; +SPIR-10 PO; -SPIR25TA2 PO; -SUMA6INJ SC; +SUMA6INJ20 SC; -TRAZ-136 PO; +TRAZ-163 PO
[2019-01-27 11:41] LABS: HEMATOCRIT 41.6 % (36.0-47.0); HEMOGLOBIN 13.8 g/dl (12.0-15.5); MEAN CORPUSCULAR HEMOGLOBIN 32.8 pg (27.0-33.0); MEAN CORPUSCULAR HGB CONC 33.2 g/dl (32.0-36.5); MEAN CORPUSCULAR VOLUME 98.8 fl (80.0-96.0); PLATELET COUNT, AUTOMATED 235 10^3/uL (150-450); RED BLOOD COUNT 4.21 10^6/uL (4.00-5.40); WHITE BLOOD COUNT 5.2 10^3/uL (4.0-10.0)
[2019-01-27 12:08] LABS: BLOOD UREA NITROGEN 11 MG/DL (7-18); CARBON DIOXIDE LEVEL 25 MEQ/L (21-32); CHLORIDE LEVEL 112 MEQ/L (98-107); CREATININE FOR GFR 0.72 MG/DL (0.55-1.30); GLOMERULAR FILTRATION RATE > 60.0 (>51); GLUCOSE, FASTING 88 MG/DL (70-100); POTASSIUM SERUM 3.9 MEQ/L (3.5-5.1); SODIUM LEVEL 145 MEQ/L (136-145)
== END ==
LOC: M SFHCCLAY 13:55
PROVIDERS: ATTEND Family Medicine
DX: Z98.84 Bariatric surgery status (principal); E16.1 Other hypoglycemia; J01.00 Acute maxillary sinusitis, unspecified

== ENCOUNTER 2019-06-10 22:40 | Emergency (ER) | payer MEDICAID ==
[~2019-06-10] VITALS: Ht 167.6 cm; Wt 99.5 kg
[~2019-06-10 22:40] MED LIST changes: -/ADVA50050 IN; -/ESOM40CA OR; +ADVA1AER2 IN; +CLOT1CRE27 TOP; -CLOTR1CR TOP; -DULO1CAP3 PO; +DULO1CAP6 PO; -ERGO500014 PO; +NEXI1CAP3 OR; +OMEP1CAP73 PO; -OMEP20CA3 PO; -OMEP40CA2 PO; +OMEP40CA97 PO; -TRAZ-163 PO; +TRAZ-257 PO; -VENL75CA PO; +VENL75CA22 PO; +VITA100018 IM; +VITA100018 PO; -VITA100072 IM; -VITA100072 PO; +VITA500045 PO
[2019-06-10 22:46] VITALS: BP 124/91
[2019-06-10] MEDS ORDERED: ELIQ2.5T PO (22:54)
--- NOTE | 2019-06-11 07:38 | REP ---
Clinical: Trauma on anticoagulation therapy . Comparison: 09/20/2017 . Findings: The ventricles, sulci, and cisterns are normal in position and appearance. Willis-white differentiation is maintained. No acute intracranial hemorrhage, mass/mass effect, pathology or trauma/injury. No evidence for acute infarction. No extra-axial fluid collection. Calvarium is intact. Paranasal sinuses and mastoid air cells are clear. Impression: Normal noncontrast head CT. No evidence for acute intracranial pathology or trauma/injury. Electronically Signed by Bryan Shultz MD 06/11/2019 07:29 A
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
== END 2019-06-11 01:25 | disposition home or self-care (01) ==
LOC: M ED 22:40
DX: S50.01XA Contusion of right elbow, initial encounter (principal); F10.120 Alcohol abuse with intoxication, uncomplicated; T76.11XA Adult physical abuse, suspected, initial encounter; Y92.098 Other place in other non-institutional residence as the place of occurrence of the external cause; I10 Essential (primary) hypertension; G43.909 Migraine, unspecified, not intractable, without status migrainosus; Z86.73 Personal history of transient ischemic attack (TIA), and cerebral infarction without residual deficits; Z79.899 Other long term (current) drug therapy; Z79.51 Long term (current) use of inhaled steroids; Z79.01 Long term (current) use of anticoagulants; Z88.0 Allergy status to penicillin; Z88.1 Allergy status to other antibiotic agents

== ENCOUNTER 2019-06-17 03:25 | Observation (INO) | payer MEDICAID ==
[~2019-06-17] VITALS: Ht 167.6 cm; Wt 94.0 kg
[~2019-06-17 03:25] MED LIST changes: +ELIQ2.5T PO; -OMEP1CAP73 PO; +OMEP20CA4 PO; +OMEP40CA2 PO; -OMEP40CA97 PO; +TRAZ-163 PO; -TRAZ-257 PO
[2019-06-17 04:24] LABS: BASO # 0.1 10^3/uL (0.0-0.2); BASO % 0.7 % (0.0-1.0); EOS # 0.2 10^3/uL (0.0-0.50); EOS % 2.5 % (0.0-3.0); HEMATOCRIT 41.6 % (36.0-47.0); HEMOGLOBIN 13.5 g/dl (12.0-15.5); LYMPH # 2.3 10^3/uL (1.5-4.5); LYMPH % 31.8 % (24.0-44.0); MEAN CORPUSCULAR HEMOGLOBIN 33.3 pg (27.0-33.0); MEAN CORPUSCULAR HGB CONC 32.5 g/dl (32.0-36.5); MEAN CORPUSCULAR VOLUME 102.7 fl (80.0-96.0); MONO # 0.6 10^3/uL (0.0-0.8); MONO % 8.2 % (0.0-5.0); NEUTROPHILS # 4.1 10^3/uL (1.8-7.7); NEUTROPHILS % 56.5 % (36.0-66.0); PLATELET COUNT, AUTOMATED 192 10^3/uL (150-450); RED BLOOD COUNT 4.05 10^6/uL (4.00-5.40); WHITE BLOOD COUNT 7.3 10^3/uL (4.0-10.0)
[2019-06-17 04:53] LABS: ACETAMINOPHEN LEVEL < 2.0 UG/ML (10.0-30.0); ALBUMIN 3.2 GM/DL (3.2-5.2); ALT/SGPT 23 U/L (12-78); BILIRUBIN,DIRECT 0.1 MG/DL (0.0-0.2); BILIRUBIN,TOTAL 0.3 MG/DL (0.2-1.0); BLOOD UREA NITROGEN 17 MG/DL (7-18); CALCIUM LEVEL 7.2 MG/DL (8.5-10.1); CARBON DIOXIDE LEVEL 24 MEQ/L (21-32); CHLORIDE LEVEL 116 MEQ/L (98-107); CK-MB VALUE MASS 3.7 NG/ML (<3.6); CPK CREATINE PHOSPHOKINASE 177 U/L (26-192); CREATININE FOR GFR 0.93 MG/DL (0.55-1.30); ETHYL ALCOHOL (ETHANOL) 0.056 % (0.000-0.010); GLOMERULAR FILTRATION RATE > 60.0 (>51); GLUCOSE, FASTING 80 MG/DL (70-100); MB/CK RELATIVE INDEX 2.09 (< OR =4); SALICYLATE LEVEL 9.4 MG/DL (5.0-30.0); SODIUM LEVEL 145 MEQ/L (136-145); TOTAL PROTEIN 6.1 GM/DL (6.4-8.2); TROPONIN I < 0.02 NG/ML (< 0.10)
[2019-06-17] MEDS ORDERED: THIAMINE 100 MG TAB PO ONE (05:30)
[2019-06-17] MEDS: NS 1,000 ML IV SCH ×3 (05:51→19:45)
[2019-06-17 07:26] LABS: AMPHETAMINES LEVEL URINE POSITIVE (NEGATIVE); BARBITURATES URINE NEGATIVE (NEGATIVE); BENZODIAZEPINES URINE POSITIVE (NEGATIVE); CANNABINOIDS URINE NEGATIVE (NEGATIVE); COCAINE METABOLITE URINE POSITIVE (NEGATIVE); METHADONE URINE NEGATIVE (NEGATIVE); OPIATES URINE NEGATIVE (NEGATIVE); PHENCYCLIDINE URINE NEGATIVE (NEGATIVE)
[2019-06-17 07:54] LABS: ABG HCO3 19.6 MEQ/L (22.0-26.0); ABG O2 SATURATION 96.3 % (95.0-99.0); ABG PARTIAL PRESSURE CO2 35.3 mmHg (35.0-45.0); ABG STANDARD HCO3 20.3 MEQ/L (22.0-26.0); ABG TOTAL CO2 20.7 MEQ/L (22.0-29.0); ABG pH (ARTERIAL) 7.363 UNITS (7.350-7.450)
--- NOTE | 2019-06-17 08:20 | REP ---
CT WITHOUT CONTRAST: HISTORY: Altered mental status. COMPARISON: 06/10/2019. There is no intraparenchymal hemorrhage, mass, or midline shift. The ventricular system is normal in appearance. There is no extracerebral collection. The visualized sinuses are clear. IMPRESSION: There is no intracranial lesion. Electronically Signed by Trenton Mistry MD 06/17/2019 08:25 A
--- NOTE | 2019-06-17 08:28 | REP ---
AP PORTABLE CHEST: 06/17/2019. Comparison: 11/26/2015. Clinical history: Altered mental status. Findings: The lung sandra are well inflated. There is no pleural effusion, lateral pleural thickening apical scarring or pneumothorax. The heart, mediastinal and hilar contours are unchanged, the aorta is mildly tortuous but stable. There is no vascular redistribution or pulmonary edema. Airway is midline. Impression: 1. No acute cardiopulmonary change, stable chest. Electronically Signed by Arie Gonzales MD 06/17/2019 01:59 P
[2019-06-17] MEDS ORDERED: GLUCAGON FOR INJ 1 MG VIAL (J1610) SC PRN (09:00)
[2019-06-17] MEDS ORDERED: GLUCOSE 4 GM CHEW TABLET PO PRN (09:00)
[2019-06-17] MEDS ORDERED: DEXTROSE 50% 50 ML SYRINGE IV PRN (09:00)
[2019-06-17] MEDS ORDERED: PROAAER10 INH (09:12)
[2019-06-17] MEDS ORDERED: APAP325T4 PO (09:20)
[2019-06-17] MEDS ORDERED: RA S8.6T3 PO (09:20)
[2019-06-17] MEDS ORDERED: MULTIVITAMIN -ADULT INJECTION 10 ML, THIAMINE INJection 100 MG, FOLIC ACID 1 MG in NS 1... IV ONE (11:00)
[2019-06-17 15:58] LABS: HCG, SERUM QUALITATIVE NEGATIVE (NEGATIVE)
[2019-06-17] MEDS ORDERED: D5W/0.45% SODIUM CHLORIDE 1,000 ML IV SCH (16:15)
[2019-06-17] MEDS ORDERED: ALBUTEROL 90 MCG/ACT 8GM HFA INHALER INH PRN (16:15)
[2019-06-17] MEDS ORDERED: HumaLOG INSULIN (NovoLOG) PER UNIT SC SCH ×2 (17:30→21:00)
[2019-06-17] MEDS ORDERED: OMEPRAZOLE 20 MG CAP PO SCH (21:00)
[2019-06-17] MEDS ORDERED: TOPIRAMATE (TopAMAX) 100 MG TAB PO SCH (21:00)
[2019-06-17] MEDS ORDERED: SENNA 8.6 MG TAB (SENOKOT) PO SCH (21:00)
[2019-06-17] MEDS ORDERED: GABAPENTIN 300 MG CAP PO SCH (21:00)
[2019-06-17] MEDS: PANTOPRAZOLE 40MG INJ (PROTONIX) (C9113) IV SCH (21:19)
[2019-06-17] MEDS: DOCUSATE SODIUM 100 MG CAP PO SCH (21:19)
[2019-06-17] MEDS: APIXABAN 2.5 MG TAB (ELIQUIS) PO SCH (21:19)
[2019-06-17 22:20] VITALS: BP 135/89
[2019-06-18] VITALS (8 sets, daily range): BP systolic 110–155; BP diastolic 55–103
[2019-06-18] MEDS ORDERED: LORazepam 1 MG TAB PO SCH ×2 (03:00)
[2019-06-18] MEDS ORDERED: LORazepam 2 MG TAB PO SCH ×2 (03:00→04:30)
[2019-06-18] MEDS ORDERED: LORazepam 2 MG/ML VIAL (J2060) IV PRN (03:00)
[2019-06-18 05:02] LABS: HEMATOCRIT 38.4 % (36.0-47.0); HEMOGLOBIN 12.8 g/dl (12.0-15.5); MEAN CORPUSCULAR HEMOGLOBIN 33.2 pg (27.0-33.0); MEAN CORPUSCULAR HGB CONC 33.3 g/dl (32.0-36.5); MEAN CORPUSCULAR VOLUME 99.5 fl (80.0-96.0); PLATELET COUNT, AUTOMATED 173 10^3/uL (150-450); RED BLOOD COUNT 3.86 10^6/uL (4.00-5.40); WHITE BLOOD COUNT 3.3 10^3/uL (4.0-10.0)
[2019-06-18] MEDS: ACETAMINOPHEN 325 MG TAB PO PRN ×2 (05:16→11:20)
[2019-06-18] MEDS: LORazepam 2 MG TAB PO PRN (05:16)
[2019-06-18 05:23] LABS: ALBUMIN 2.6 GM/DL (3.2-5.2); ALT/SGPT 17 U/L (12-78); BILIRUBIN,TOTAL 0.4 MG/DL (0.2-1.0); BLOOD UREA NITROGEN 9 MG/DL (7-18); CALCIUM LEVEL 7.7 MG/DL (8.5-10.1); CARBON DIOXIDE LEVEL 25 MEQ/L (21-32); CHLORIDE LEVEL 118 MEQ/L (98-107); CREATININE FOR GFR 0.67 MG/DL (0.55-1.30); GLOMERULAR FILTRATION RATE > 60.0 (>51); GLUCOSE, FASTING 92 MG/DL (70-100); POTASSIUM SERUM 3.7 MEQ/L (3.5-5.1); SODIUM LEVEL 147 MEQ/L (136-145); TOTAL PROTEIN 5.5 GM/DL (6.4-8.2)
[2019-06-18] MEDS: HumaLOG INSULIN (NovoLOG) PER UNIT SC SCH ×4 (07:30→21:00)
--- NOTE | 2019-06-18 08:00 | ECGEPIP ---
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
[2019-06-18] MEDS ORDERED: MULTIVITAMINS/MINERALS THERAP 1 TAB PO SCH (09:00)
[2019-06-18] MEDS ORDERED: FOLIC ACID 1 MG TAB PO SCH (09:00)
[2019-06-18] MEDS ORDERED: THIAMINE 100 MG TAB PO SCH (09:00)
[2019-06-18] MEDS ORDERED: FUROSEMIDE 80 MG TAB PO SCH (09:00)
[2019-06-18] MEDS ORDERED: OXAZEPAM 15 MG CAP PO SCH (09:00)
[2019-06-18] MEDS ORDERED: SPIRONOLACTONE 25 MG TAB PO SCH (09:00)
[2019-06-18] MEDS: DOCUSATE SODIUM 100 MG CAP PO SCH ×2 (09:19→22:04)
[2019-06-18] MEDS: DULoxetine 30 MG CAP (CYMBALTA) PO SCH (09:19)
[2019-06-18] MEDS: MULTIVITAMINS/MINERALS THERAP 1 TAB PO SCH (09:19)
[2019-06-18] MEDS: THIAMINE 100 MG TAB PO SCH ×2 (09:19→22:03)
[2019-06-18] MEDS: APIXABAN 2.5 MG TAB (ELIQUIS) PO SCH ×2 (09:19→22:03)
[2019-06-18] MEDS: FERROUS SULFATE 325MG TAB PO SCH (09:20)
[2019-06-18] MEDS: FOLIC ACID 1 MG TAB PO SCH (09:20)
[2019-06-18] MEDS: CYANOCOBALAMIN 500 MCG TAB PO SCH (09:20)
[2019-06-18] MEDS: PANTOPRAZOLE 40MG INJ (PROTONIX) (C9113) IV SCH ×2 (09:20→22:03)
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
[2019-06-18 13:14] LABS: APPEARANCE, URINE CLOUDY (CLEAR); BACTERIA, URINE AUTO 2+ (NEGATIVE); BILIRUBIN, URINE AUTO NEGATIVE (NEGATIVE); BLOOD, URINE BLOOD NEGATIVE (NEGATIVE); COLOR, URINE YELLOW (YELLOW); GLUCOSE, URINE (UA) AUTO NEGATIVE (NEGATIVE); KETONE, URINE AUTO NEGATIVE (NEGATIVE); LEUKOCYTE ESTERASE, URINE AUTO 2+ (NEGATIVE); MUCUS, URINE SMALL (NEGATIVE); NITRITE, URINE AUTO POSITIVE (NEGATIVE); PROTEIN, URINE AUTO NEGATIVE (NEGATIVE); RBC, URINE AUTO 4 /HPF (0-3); SPECIFIC GRAVITY URINE AUTO 1.009 (1.002-1.035); SQUAMOUS EPITHELIAL CELL UR AU 12 /HPF (0-6); UROBILINOGEN, URINE AUTO 0.2 mg/dL (0.0-2.0); WBC, URINE AUTO 40 /HPF (0-3)
[2019-06-18] MEDS: ACETAMINOPHEN TAB 650MG DOSE (2X325MG) PO PRN (18:02)
[2019-06-18] MEDS: NICOTINE 14 MG/24 HR TRANSDERMAL TD SCH (22:04)
[2019-06-18] MEDS: OXAZEPAM 10 MG CAP PO SCH (22:04)
[2019-06-19] VITALS (9 sets, daily range): BP systolic 127–147; BP diastolic 84–99
[2019-06-19] MEDS: LORazepam 2 MG TAB PO PRN ×3 (01:04→20:18)
[2019-06-19 06:29] LABS: BASO % 0.8 % (0.0-1.0); EOS # 0.1 10^3/uL (0.0-0.50); EOS % 2.6 % (0.0-3.0); HEMOGLOBIN 13.3 g/dl (12.0-15.5); LYMPH # 1.8 10^3/uL (1.5-4.5); LYMPH % 45.9 % (24.0-44.0); MEAN CORPUSCULAR HEMOGLOBIN 34.5 pg (27.0-33.0); MEAN CORPUSCULAR HGB CONC 34.1 g/dl (32.0-36.5); MEAN CORPUSCULAR VOLUME 101.3 fl (80.0-96.0); MONO # 0.4 10^3/uL (0.0-0.8); MONO % 9.7 % (0.0-5.0); NEUTROPHILS # 1.6 10^3/uL (1.8-7.7); PLATELET COUNT, AUTOMATED 174 10^3/uL (150-450); RED BLOOD COUNT 3.85 10^6/uL (4.00-5.40); WHITE BLOOD COUNT 3.9 10^3/uL (4.0-10.0)
[2019-06-19 06:54] LABS: ALBUMIN 2.9 GM/DL (3.2-5.2); ALT/SGPT 19 U/L (12-78); BILIRUBIN,TOTAL 0.2 MG/DL (0.2-1.0); BLOOD UREA NITROGEN 10 MG/DL (7-18); CALCIUM LEVEL 7.9 MG/DL (8.5-10.1); CARBON DIOXIDE LEVEL 25 MEQ/L (21-32); CHLORIDE LEVEL 114 MEQ/L (98-107); CREATININE FOR GFR 0.67 MG/DL (0.55-1.30); GLOMERULAR FILTRATION RATE > 60.0 (>51); GLUCOSE, FASTING 86 MG/DL (70-100); POTASSIUM SERUM 3.7 MEQ/L (3.5-5.1); SODIUM LEVEL 146 MEQ/L (136-145); TOTAL PROTEIN 5.5 GM/DL (6.4-8.2)
[2019-06-19] MEDS: HumaLOG INSULIN (NovoLOG) PER UNIT SC SCH ×4 (07:30→20:52)
[2019-06-19] MEDS: PANTOPRAZOLE 40MG INJ (PROTONIX) (C9113) IV SCH ×2 (09:39→20:18)
[2019-06-19] MEDS: DOCUSATE SODIUM 100 MG CAP PO SCH ×2 (09:40→20:17)
[2019-06-19] MEDS: DULoxetine 30 MG CAP (CYMBALTA) PO SCH (09:40)
[2019-06-19] MEDS: CYANOCOBALAMIN 500 MCG TAB PO SCH (09:40)
[2019-06-19] MEDS: THIAMINE 100 MG TAB PO SCH ×2 (09:40→20:17)
[2019-06-19] MEDS: APIXABAN 2.5 MG TAB (ELIQUIS) PO SCH ×2 (09:41→20:16)
[2019-06-19] MEDS: FERROUS SULFATE 325MG TAB PO SCH (09:41)
[2019-06-19] MEDS: FOLIC ACID 1 MG TAB PO SCH (09:41)
[2019-06-19] MEDS: OXAZEPAM 10 MG CAP PO SCH (09:41)
[2019-06-19] MEDS: MULTIVITAMINS/MINERALS THERAP 1 TAB PO SCH (09:41)
[2019-06-19] MEDS: TOPIRAMATE (TopAMAX) 100 MG TAB PO SCH ×2 (11:12→20:16)
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
[2019-06-19] MEDS: GABAPENTIN 300 MG CAP PO SCH ×3 (12:19→20:17)
[2019-06-19] MEDS: NICOTINE 14 MG/24 HR TRANSDERMAL TD SCH (21:35)
[2019-06-20] VITALS (7 sets, daily range): BP systolic 103–140; BP diastolic 60–89
[2019-06-20] MEDS: PANTOPRAZOLE 40MG INJ (PROTONIX) (C9113) IV SCH ×3 (01:45→20:59)
[2019-06-20] MEDS: LORazepam 2 MG TAB PO PRN (05:44)
[2019-06-20 06:34] LABS: BASO % 0.7 % (0.0-1.0); EOS # 0.1 10^3/uL (0.0-0.50); EOS % 2.7 % (0.0-3.0); HEMATOCRIT 38.2 % (36.0-47.0); HEMOGLOBIN 12.9 g/dl (12.0-15.5); LYMPH # 1.8 10^3/uL (1.5-4.5); LYMPH % 39.9 % (24.0-44.0); MEAN CORPUSCULAR HEMOGLOBIN 33.3 pg (27.0-33.0); MEAN CORPUSCULAR HGB CONC 33.8 g/dl (32.0-36.5); MEAN CORPUSCULAR VOLUME 98.7 fl (80.0-96.0); MONO # 0.4 10^3/uL (0.0-0.8); MONO % 9.5 % (0.0-5.0); NEUTROPHILS # 2.1 10^3/uL (1.8-7.7); PLATELET COUNT, AUTOMATED 191 10^3/uL (150-450); RED BLOOD COUNT 3.87 10^6/uL (4.00-5.40); WHITE BLOOD COUNT 4.5 10^3/uL (4.0-10.0)
[2019-06-20 07:00] LABS: ALBUMIN 2.9 GM/DL (3.2-5.2); ALT/SGPT 18 U/L (12-78); BILIRUBIN,TOTAL 0.4 MG/DL (0.2-1.0); BLOOD UREA NITROGEN 10 MG/DL (7-18); CALCIUM LEVEL 8.3 MG/DL (8.5-10.1); CARBON DIOXIDE LEVEL 24 MEQ/L (21-32); CHLORIDE LEVEL 113 MEQ/L (98-107); CREATININE FOR GFR 0.62 MG/DL (0.55-1.30); GLOMERULAR FILTRATION RATE > 60.0 (>51); GLUCOSE, FASTING 92 MG/DL (70-100); POTASSIUM SERUM 3.6 MEQ/L (3.5-5.1); SODIUM LEVEL 142 MEQ/L (136-145)
[2019-06-20] MEDS: HumaLOG INSULIN (NovoLOG) PER UNIT SC SCH ×4 (07:30→21:00)
[2019-06-20] MEDS: NITROFURANTOIN (MACROBID) 100 MG CAP PO SCH ×2 (09:00→20:59)
[2019-06-20] MEDS: DOCUSATE SODIUM 100 MG CAP PO SCH ×2 (09:18→20:59)
[2019-06-20] MEDS: THIAMINE 100 MG TAB PO SCH ×2 (09:18→20:59)
[2019-06-20] MEDS: FERROUS SULFATE 325MG TAB PO SCH (09:18)
[2019-06-20] MEDS: GABAPENTIN 300 MG CAP PO SCH ×3 (09:18→20:59)
[2019-06-20] MEDS: DULoxetine 30 MG CAP (CYMBALTA) PO SCH (09:18)
[2019-06-20] MEDS: TOPIRAMATE (TopAMAX) 100 MG TAB PO SCH ×2 (09:18→20:59)
[2019-06-20] MEDS: CYANOCOBALAMIN 500 MCG TAB PO SCH (09:18)
[2019-06-20] MEDS: MULTIVITAMINS/MINERALS THERAP 1 TAB PO SCH (09:19)
[2019-06-20] MEDS: APIXABAN 2.5 MG TAB (ELIQUIS) PO SCH ×2 (09:19→20:59)
[2019-06-20] MEDS: FOLIC ACID 1 MG TAB PO SCH (09:19)
[2019-06-20 11:25] LABS: HEPATITIS B SURFACE ANTIBODY NEGATIVE (POSITIVE); HEPATITIS B SURFACE ANTIGEN NEGATIVE (NEGATIVE); HEPATITIS C VIRUS ABY INDEX 0.1 INDEX (<0.8); HIV 1&2 SCREEN CENTAUR NEGATIVE (NEGATIVE)
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
[2019-06-20] MEDS ORDERED: LORazepam 1 MG TAB PO PRN (15:15)
[2019-06-20] MEDS: NICOTINE 14 MG/24 HR TRANSDERMAL TD SCH (21:00)
[2019-06-21 06:00] VITALS: BP 127/73
[2019-06-21] MEDS: HumaLOG INSULIN (NovoLOG) PER UNIT SC SCH (07:30)
[2019-06-21] MEDS: DOCUSATE SODIUM 100 MG CAP PO SCH (09:18)
[2019-06-21] MEDS: APIXABAN 2.5 MG TAB (ELIQUIS) PO SCH (09:18)
[2019-06-21] MEDS: FERROUS SULFATE 325MG TAB PO SCH (09:18)
[2019-06-21] MEDS: DULoxetine 30 MG CAP (CYMBALTA) PO SCH (09:19)
[2019-06-21] MEDS: GABAPENTIN 300 MG CAP PO SCH (09:19)
[2019-06-21] MEDS: FOLIC ACID 1 MG TAB PO SCH (09:19)
[2019-06-21] MEDS: MULTIVITAMINS/MINERALS THERAP 1 TAB PO SCH (09:19)
[2019-06-21] MEDS: CYANOCOBALAMIN 500 MCG TAB PO SCH (09:19)
[2019-06-21] MEDS: PANTOPRAZOLE 40MG INJ (PROTONIX) (C9113) IV SCH (09:27)
[2019-06-21] MEDS: NITROFURANTOIN (MACROBID) 100 MG CAP PO SCH (09:27)
[2019-06-21] MEDS: TOPIRAMATE (TopAMAX) 100 MG TAB PO SCH (09:27)
[2019-06-21] MEDS: ACETAMINOPHEN TAB 650MG DOSE (2X325MG) PO PRN (09:43)
[2019-06-21] MEDS ORDERED: NICO14PA TD (11:16)
[2019-06-21] MEDS ORDERED: NITR100C2 PO (11:16)
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
== END 2019-06-21 13:10 | disposition home or self-care (01) ==
LOC: M ED 03:25 → M ED INP 03:26 → M ICU 22:08 → M MSPAV 06-18 13:05
PROVIDERS: ADMIT General Practice; ATTEND Family Medicine
DX: T50.901A Poisoning by unspecified drugs, medicaments and biological substances, accidental (unintentional), initial encounter (principal); F13.20 Sedative, hypnotic or anxiolytic dependence, uncomplicated; F14.10 Cocaine abuse, uncomplicated; F15.20 Other stimulant dependence, uncomplicated; I10 Essential (primary) hypertension; D68.2 Hereditary deficiency of other clotting factors; N39.0 Urinary tract infection, site not specified; E11.9 Type 2 diabetes mellitus without complications; Z86.718 Personal history of other venous thrombosis and embolism; Z86.73 Personal history of transient ischemic attack (TIA), and cerebral infarction without residual deficits; E66.9 Obesity, unspecified; G43.919 Migraine, unspecified, intractable, without status migrainosus; Z79.01 Long term (current) use of anticoagulants; R51 Headache; Z98.84 Bariatric surgery status; Z79.899 Other long term (current) drug therapy; N63.0 Unspecified lump in unspecified breast
CPT/HCPCS: 36415; 36600; 70450; 71045; 80048; 80053; 80076; 80307; 81001; 82140; 82550; 82553; 82803; 83605; 84443; 84703; 85025; 85027; 86706; 86780; 86803; 87040; 87088; 87186; 87340; 87389; 93005; 93041; 96361; 96374; 96375; 96376; 97161; 97530; 99285; C9113; G0480; J3411

== ENCOUNTER 2020-01-12 19:14 | Inpatient (IN) | payer MEDICAID ==
[~2020-01-12] VITALS: Ht 167.6 cm; Wt 99.9 kg
[~2020-01-12 19:14] MED LIST changes: +APAP325T4 PO; +NICO14PA TD; +NITR100C2 PO; +OMEP1CAP73 PO; -OMEP20CA4 PO; -OMEP40CA2 PO; +OMEP40CA97 PO; +PROAAER10 INH; +RA S8.6T3 PO; -TRAZ-163 PO; +TRAZ-257 PO
[2020-01-12] MEDS ORDERED: ONDANSETRON 4MG/2ML VIAL (J2405) IV ONE (20:45)
[2020-01-12 20:56] LABS: BASO % 0.7 % (0.0-1.0); EOS # 0.1 10^3/uL (0.0-0.5); EOS % 2.4 % (0.0-3.0); HEMATOCRIT 42.5 % (36.0-47.0); HEMOGLOBIN 14.4 g/dl (12.0-15.5); LYMPH # 2.2 10^3/uL (1.5-5.0); LYMPH % 37.2 % (24.0-44.0); MEAN CORPUSCULAR HEMOGLOBIN 32.2 pg (27.0-33.0); MEAN CORPUSCULAR HGB CONC 33.9 g/dl (32.0-36.5); MEAN CORPUSCULAR VOLUME 95.1 fl (80.0-96.0); MONO # 0.6 10^3/uL (0.0-0.8); MONO % 9.5 % (0.0-5.0); NEUTROPHILS # 2.9 10^3/uL (1.5-8.5); NEUTROPHILS % 49.9 % (36.0-66.0); PLATELET COUNT, AUTOMATED 204 10^3/uL (150-450); RED BLOOD COUNT 4.47 10^6/uL (4.00-5.40); WHITE BLOOD COUNT 5.8 10^3/uL (4.0-10.0)
[2020-01-12 21:07] LABS: INR 1.04; PARTIAL THROMBOPLASTIN TIME 25.4 SECONDS (25.0-38.4); PROTHROMBIN TIME 13.3 SECONDS (11.8-14.0)
[2020-01-12 21:13] LABS: ERYTHROCYTE SEDIMENTATION RATE 4 mm/hr (0-30)
[2020-01-12 21:21] LABS: C REACTIVE PROTEIN QUANTITATIV < 0.30 MG/DL (0.00-0.30); ETHYL ALCOHOL (ETHANOL) < 0.003 % (0.000-0.010)
[2020-01-12] MEDS: MORPHINE 4 MG/ML 1ML VIAL/SYRINGE (J2270) IV PRN ×2 (21:35→22:26)
[2020-01-12] MEDS ORDERED: cefTRIAXone SOD 1 GM in D5W MINI-BAG PLUS 50 ML IV ONE (23:15)
[2020-01-12] MEDS ORDERED: GABAPENTIN 300 MG CAP PO ONE (23:15)
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
[2020-01-12] MEDS ORDERED: MAALOX 30 ML SUSP *UDC PO PRN (23:30)
[2020-01-12] MEDS ORDERED: MOM 30ML SUSPENSION UDC PO PRN (23:30)
[2020-01-12] MEDS ORDERED: NICO1DIS9 TD (23:43)
[2020-01-12] MEDS ORDERED: BENZ-18 PO (23:43)
[2020-01-12] MEDS ORDERED: NYST1POW9 TOP (23:43)
[2020-01-12] MEDS ORDERED: TYLE650T35 PO (23:43)
[2020-01-12] MEDS ORDERED: VITA50005 PO (23:43)
[2020-01-13] MEDS ORDERED: NYSTATIN 100,000 UNITS/GM TOPICAL PWD 15 GM TOP PRN (00:15)
[2020-01-13] MEDS ORDERED: BACLOFEN 10 MG TAB PO PRN (00:15)
[2020-01-13] MEDS ORDERED: VANCOMYCIN HCL 1,000 MG, VIAL MATE ADAPTER 1 EACH in D5W 250 ML IV ONE ×2 (01:00→02:00)
[2020-01-13] MEDS: TOPIRAMATE (TopAMAX) 100 MG TAB PO SCH ×3 (01:02→21:16)
[2020-01-13] MEDS: NICOTINE 14 MG/24 HR TRANSDERMAL TD SCH ×2 (01:02→21:16)
[2020-01-13] MEDS: OMEPRAZOLE 20 MG CAP PO SCH ×3 (01:02→21:15)
[2020-01-13] MEDS: APIXABAN 2.5 MG TAB (ELIQUIS) PO SCH ×2 (01:03→09:25)
[2020-01-13] MEDS: SENNA 8.6 MG TAB (SENOKOT) PO SCH ×3 (01:03→21:16)
[2020-01-13 06:29] LABS: HEMATOCRIT 38.9 % (36.0-47.0); HEMOGLOBIN 13.1 g/dl (12.0-15.5); MEAN CORPUSCULAR HEMOGLOBIN 32.5 pg (27.0-33.0); MEAN CORPUSCULAR HGB CONC 33.7 g/dl (32.0-36.5); MEAN CORPUSCULAR VOLUME 96.5 fl (80.0-96.0); PLATELET COUNT, AUTOMATED 189 10^3/uL (150-450); RED BLOOD COUNT 4.03 10^6/uL (4.00-5.40); WHITE BLOOD COUNT 5.6 10^3/uL (4.0-10.0)
[2020-01-13 06:49] LABS: BLOOD UREA NITROGEN 7 MG/DL (7-18); CALCIUM LEVEL 8.3 MG/DL (8.5-10.1); CARBON DIOXIDE LEVEL 28 MEQ/L (21-32); CHLORIDE LEVEL 108 MEQ/L (98-107); GLOMERULAR FILTRATION RATE > 60.0 (>51); GLUCOSE, FASTING 110 MG/DL (70-100); POTASSIUM SERUM 3.5 MEQ/L (3.5-5.1); SODIUM LEVEL 139 MEQ/L (136-145)
--- NOTE | 2020-01-13 07:01 | PHACANCOPD ---
PHARMACY VANCOMYCIN DOSING Pt Demographics Demographics Patient Age:54 , Weight:102.270 , Gender: female Adjusted Body Weight Date: 01/13/20, Adjusted Body Weight: [76.5] Kg Vancomycin Vancomycin indication: lower extremity cellulitis Vancomycin Target Ranges: 15-20 mcg/ml Vancomycin Load Y/N: Yes Load Dose Date Time Vancomycin Load Dose: 2 gram Date: 01/12 Time: 9787-8800 Vancomycin Dose Date: 01/13/20. Current Vancomycin Dose: [1 gm q12] Intermittent Dosing?: No Labs Micro Microbiology 01/12/20 Blood Culture, Received Pending 01/12/20 Blood Culture, Received Pending Creatinine Clearance Date:01/13/20. Creatinine Clearance: [~100]. Assessment and Plan Maintaining Current Dose?: Yes Reason for dose change: No Dose Change Pharmacist Note Pharmacist Note Date: 01/13/20. Pharmacist note:54 YOF 102.2kg(abw=76.5)SCR=0.7,CRCL=~100,allergies reported:penicillin,mupirocin.r eceived 2 gram Vancomycin load, then 1 gram IV [id number].First trough is scheduled for 01/13@0900 [facility] Jan 13, 2020 07:01
[2020-01-13] MEDS ORDERED: ENTER DRUG NAME HERE (PATIENT'S OWN MED) INH SCH (09:00)
[2020-01-13] MEDS: DOCUSATE SODIUM 100 MG CAP PO SCH ×2 (09:00→21:15)
--- NOTE | 2020-01-13 09:20 | REP ---
REPEAT DICTATION DUPLEX EXTREMITY VENOUS ULTRASOUND: Bilateral lower extremities. HISTORY: Bilateral leg swelling. History of DVT. Preliminary report is provided at the time of exam by [facility]. FINDINGS: In the left lower extremity, the deep veins are anechoic and compressible on two-dimensional scanning although some limitation of compression was encountered due to patient discomfort. Doppler flow is normal on the left lower extremity. There is no evidence of deep vein thrombosis on the left. In the right, there is extensive occlusive DVT throughout the femoral vein and popliteal vein however. IMPRESSION: Extensive right lower extremity occlusive deep vein thrombosis right femoral vein and popliteal vein segments. Electronically Signed by Jalil Waters MD 01/13/2020 06:32 P
[2020-01-13] MEDS: GABAPENTIN 300 MG CAP PO SCH ×3 (09:25→21:16)
[2020-01-13] MEDS: CYANOCOBALAMIN 500 MCG TAB PO SCH (09:25)
[2020-01-13] MEDS: FUROSEMIDE 80 MG TAB PO SCH (09:25)
[2020-01-13] MEDS: DULoxetine 30 MG CAP (CYMBALTA) PO SCH (09:25)
[2020-01-13] MEDS: ACETAMINOPHEN TAB 650MG DOSE (2X325MG) PO PRN ×3 (09:34→21:16)
[2020-01-13] MEDS ORDERED: VANCOMYCIN HCL 1,000 MG, VIAL MATE ADAPTER 1 EACH in D5W 250 ML IV SCH (10:00)
[2020-01-13] MEDS ORDERED: APIXABAN 2.5 MG TAB (ELIQUIS) PO ONE (11:30)
--- NOTE | 2020-01-13 11:39 | IPN ---
DATE: 01/13/2020 ADDENDUM TO HISTORY AND PHYSICAL: Lesley's history and physical indicates that she is on Xarelto but her medication list has her on Eliquis as a reduced dose as would be anticipated with someone with chronic kidney disease. Her renal function is normal and for an acute DVT dosing for Eliquis would be 10 mg twice a day for 7 days and 5 mg twice a day. She had already started Eliquis so we will continue this but we will change the dose to 10 mg twice a day for 7 days, 5 mg twice a day for 6 months and then consideration can be given to changing the dose to 2.5 mg twice a day after 6 months of treatment, and that will be deferred, of course, to her outpatient doctor.
[2020-01-13 12:36] VITALS: BP 143/90
[2020-01-13 12:50] VITALS: BP 116/67
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
[2020-01-13 14:00] VITALS: BP 139/88
[2020-01-13] MEDS: APIXABAN 5 MG TAB (ELIQUIS) PO SCH (21:15)
[2020-01-13 22:00] VITALS: BP 141/88
[2020-01-14 06:00] VITALS: BP 126/89
[2020-01-14] MEDS ORDERED: FLUBLOK(EGG FREE)(QUAD)INFLUENZA VACC 0.5ML SYRINGE (90682)18YRS&OLDER IM ONE (09:00)
[2020-01-14] MEDS: FUROSEMIDE 80 MG TAB PO SCH (09:06)
[2020-01-14] MEDS: CYANOCOBALAMIN 500 MCG TAB PO SCH (09:06)
[2020-01-14] MEDS: GABAPENTIN 300 MG CAP PO SCH ×3 (09:07→21:40)
[2020-01-14] MEDS: DULoxetine 30 MG CAP (CYMBALTA) PO SCH (09:07)
[2020-01-14] MEDS: OMEPRAZOLE 20 MG CAP PO SCH ×2 (09:07→21:40)
[2020-01-14] MEDS: TOPIRAMATE (TopAMAX) 100 MG TAB PO SCH ×2 (09:07→21:40)
[2020-01-14] MEDS: ACETAMINOPHEN TAB 650MG DOSE (2X325MG) PO PRN ×2 (09:07→16:43)
[2020-01-14] MEDS: DOCUSATE SODIUM 100 MG CAP PO SCH ×2 (09:07→21:40)
[2020-01-14] MEDS: SENNA 8.6 MG TAB (SENOKOT) PO SCH ×2 (09:08→21:40)
[2020-01-14] MEDS: APIXABAN 5 MG TAB (ELIQUIS) PO SCH ×2 (09:08→21:40)
[2020-01-14 09:34] LABS: HEMATOCRIT 40.8 % (36.0-47.0); HEMOGLOBIN 13.6 g/dl (12.0-15.5); MEAN CORPUSCULAR HEMOGLOBIN 32.3 pg (27.0-33.0); MEAN CORPUSCULAR HGB CONC 33.3 g/dl (32.0-36.5); MEAN CORPUSCULAR VOLUME 96.9 fl (80.0-96.0); PLATELET COUNT, AUTOMATED 184 10^3/uL (150-450); RED BLOOD COUNT 4.21 10^6/uL (4.00-5.40); WHITE BLOOD COUNT 5.1 10^3/uL (4.0-10.0)
[2020-01-14 10:04] LABS: ALBUMIN 3.3 GM/DL (3.2-5.2); ALT/SGPT 23 U/L (12-78); BILIRUBIN,TOTAL 0.4 MG/DL (0.2-1.0); BLOOD UREA NITROGEN 10 MG/DL (7-18); CALCIUM LEVEL 7.9 MG/DL (8.5-10.1); CARBON DIOXIDE LEVEL 25 MEQ/L (21-32); CHLORIDE LEVEL 113 MEQ/L (98-107); CREATININE FOR GFR 0.91 MG/DL (0.55-1.30); GLOMERULAR FILTRATION RATE > 60.0 (>51); GLUCOSE, FASTING 85 MG/DL (70-100); POTASSIUM SERUM 3.7 MEQ/L (3.5-5.1); SODIUM LEVEL 144 MEQ/L (136-145); TOTAL PROTEIN 6.5 GM/DL (6.4-8.2)
--- NOTE | 2020-01-14 10:15 | IPN ---
DATE OF SERVICE: 01/14/2020 Lesley is seen in [address] [place] [address]. She was admitted with a deep venous thrombosis (DVT) of her right lower leg. She has chronic venous stasis dermatitis. Initial diagnosis cellulitis, but she is not cellulitic. It is just chronic venous stasis. She is apparently dramatic with her symptoms, which is her baseline from looking over previous records. She is insisting on more pain medication, though her pain is not localized to the DVT (see below). PHYSICAL EXAMINATION: Afebrile. Vital signs stable. 126/89. She is lying in bed in no distress. LUNGS: Clear. HEART: Regular rate and rhythm. ABDOMEN: Soft. She has pretibial venous blush and venous stasis dermatitis. She is tender to palpate in the pretibial area of the left, as well as the (affected) right lower extremity. IMPRESSION: 1. Deep venous thrombosis right lower extremity. Continue her Eliquis 10 mg twice a day for 7 days, and then she will start Eliquis 5 mg twice a day for at least 6 months. I have ordered low-frequency tramadol to supplement her pain control. 2. Venous stasis dermatitis. This is not cellulitis. Her antibiotics have been discontinued. 3. Factor V Leiden, recurrent deep venous thromboses with noncompliance. I would discharge her, except I am concerned about her compliance. I think patient and family services (PFS) needs to get involved, and I also would like to talk to her primary care provider who is not working on the weekends. 4. Noncardiac chest pain. This is a chronic problem, extensively worked up. 5. Financial constraints. This limits her compliance. PFS needs to get involved before she can be safe (dictation cut off). I HAD A DISCUSSION WITH HER PREVIOUS PRIMARY CARE PROVIDER, WHO INDICATED THE PATIENT WAS DISCHARGED FROM THE PRACTICE FOR NONCOMPLIANCE WITH SCHEDULED APPOINTMENTS AND ALSO POINTS OUT THAT SHE WAS FOUND TO BE DIVERTING OPIATES, AND OPIATE PRESCRIBING HAD TO BE CUT OFF. I WOULD STRONGLY CAUTION AGAINST DISCHARGING THIS PATIENT WITH ANY OPIATE MEDICATIONS.
[2020-01-14] MEDS: traMADol 50 MG TAB PO PRN (11:12)
[2020-01-14 14:00] VITALS: BP 126/81
[2020-01-14] MEDS: NICOTINE 14 MG/24 HR TRANSDERMAL TD SCH (21:40)
[2020-01-14 22:00] VITALS: BP 130/84
[2020-01-15] MEDS: traMADol 50 MG TAB PO PRN ×2 (00:46→13:10)
[2020-01-15 06:00] VITALS: BP 118/77
[2020-01-15 06:01] LABS: HEMATOCRIT 39.8 % (36.0-47.0); HEMOGLOBIN 13.4 g/dl (12.0-15.5); MEAN CORPUSCULAR HEMOGLOBIN 32.6 pg (27.0-33.0); MEAN CORPUSCULAR HGB CONC 33.7 g/dl (32.0-36.5); MEAN CORPUSCULAR VOLUME 96.8 fl (80.0-96.0); PLATELET COUNT, AUTOMATED 179 10^3/uL (150-450); RED BLOOD COUNT 4.11 10^6/uL (4.00-5.40); WHITE BLOOD COUNT 5.1 10^3/uL (4.0-10.0)
[2020-01-15 06:32] LABS: BLOOD UREA NITROGEN 12 MG/DL (7-18); CALCIUM LEVEL 8.4 MG/DL (8.5-10.1); CARBON DIOXIDE LEVEL 27 MEQ/L (21-32); CHLORIDE LEVEL 108 MEQ/L (98-107); CREATININE FOR GFR 0.91 MG/DL (0.55-1.30); GLOMERULAR FILTRATION RATE > 60.0 (>51); GLUCOSE, FASTING 93 MG/DL (70-100); POTASSIUM SERUM 3.8 MEQ/L (3.5-5.1); SODIUM LEVEL 141 MEQ/L (136-145)
[2020-01-15] MEDS ORDERED: ELIQ5TAB4 PO (08:21)
[2020-01-15] MEDS: TOPIRAMATE (TopAMAX) 100 MG TAB PO SCH ×2 (09:30→21:47)
[2020-01-15] MEDS: ACETAMINOPHEN TAB 650MG DOSE (2X325MG) PO PRN ×3 (09:30→21:49)
[2020-01-15] MEDS: APIXABAN 5 MG TAB (ELIQUIS) PO SCH ×2 (09:30→21:47)
[2020-01-15] MEDS: CYANOCOBALAMIN 500 MCG TAB PO SCH (09:30)
[2020-01-15] MEDS: GABAPENTIN 300 MG CAP PO SCH ×3 (09:30→21:47)
[2020-01-15] MEDS: FUROSEMIDE 80 MG TAB PO SCH (09:30)
[2020-01-15] MEDS: DULoxetine 30 MG CAP (CYMBALTA) PO SCH (09:30)
[2020-01-15] MEDS: OMEPRAZOLE 20 MG CAP PO SCH ×2 (09:30→21:47)
[2020-01-15] MEDS: SENNA 8.6 MG TAB (SENOKOT) PO SCH ×2 (09:30→21:48)
[2020-01-15] MEDS: DOCUSATE SODIUM 100 MG CAP PO SCH ×2 (09:30→21:48)
--- NOTE | 2020-01-15 11:10 | IPN ---
DATE: 01/15/2020 Lesley is same as yesterday. No change. She has chronic discomfort in both lower legs, left equal to right (only the right has a deep venous thrombosis (DVT). No shortness of breath. Says she is getting out of bed. PHYSICAL EXAMINATION: 118/77, afebrile. Vital signs stable. Lungs: Clear. Heart: Regular rhythm. Abdomen: Soft, nontender. Both lower extremities are tender to palpate. She has hyperesthesia of both lower extremities. I can barely lay my hand upon her left lower extremity and she cries out with pain. That is not the side where the DVT is; the affected side is equally hyperesthetic. IMPRESSION: 1. DVT right lower extremity. Continue her Eliquis. She was admitted because she could not afford her Eliquis as an outpatient. Patient and Family Services (PFS) will need to get involved prior to discharge as far as helping with her medications. 2. Hyperesthesia of the legs. Has a history of being very symptomatic with her conditions. She also has a history of diverting opiates so she will not be discharged on any opiate medications.
[2020-01-15 14:00] VITALS: BP 109/70
[2020-01-15] MEDS: ALBUTEROL 90 MCG/ACT 8GM HFA INHALER INH PRN (15:40)
[2020-01-15] MEDS: NICOTINE 14 MG/24 HR TRANSDERMAL TD SCH (21:47)
[2020-01-15 22:00] VITALS: BP 124/87
[2020-01-16] MEDS: BENZONATATE 100 MG CAP PO PRN ×2 (03:01→09:51)
[2020-01-16] MEDS: traMADol 50 MG TAB PO PRN (03:02)
[2020-01-16] MEDS: ALBUTEROL 90 MCG/ACT 8GM HFA INHALER INH PRN ×2 (03:42→09:56)
[2020-01-16 06:00] VITALS: BP 118/62
[2020-01-16 06:09] LABS: HEMATOCRIT 39.5 % (36.0-47.0); HEMOGLOBIN 13.2 g/dl (12.0-15.5); MEAN CORPUSCULAR HEMOGLOBIN 32.5 pg (27.0-33.0); MEAN CORPUSCULAR HGB CONC 33.4 g/dl (32.0-36.5); MEAN CORPUSCULAR VOLUME 97.3 fl (80.0-96.0); PLATELET COUNT, AUTOMATED 186 10^3/uL (150-450); RED BLOOD COUNT 4.06 10^6/uL (4.00-5.40); WHITE BLOOD COUNT 7.1 10^3/uL (4.0-10.0)
[2020-01-16 06:37] LABS: BLOOD UREA NITROGEN 14 MG/DL (7-18); CALCIUM LEVEL 8.4 MG/DL (8.5-10.1); CARBON DIOXIDE LEVEL 25 MEQ/L (21-32); CHLORIDE LEVEL 110 MEQ/L (98-107); CREATININE FOR GFR 0.82 MG/DL (0.55-1.30); GLOMERULAR FILTRATION RATE > 60.0 (>51); GLUCOSE, FASTING 97 MG/DL (70-100); POTASSIUM SERUM 3.4 MEQ/L (3.5-5.1); SODIUM LEVEL 139 MEQ/L (136-145)
[2020-01-16] MEDS: TOPIRAMATE (TopAMAX) 100 MG TAB PO SCH (09:49)
[2020-01-16] MEDS: SENNA 8.6 MG TAB (SENOKOT) PO SCH (09:49)
[2020-01-16] MEDS: GABAPENTIN 300 MG CAP PO SCH (09:49)
[2020-01-16] MEDS: ACETAMINOPHEN TAB 650MG DOSE (2X325MG) PO PRN (09:50)
[2020-01-16] MEDS: OMEPRAZOLE 20 MG CAP PO SCH (09:50)
[2020-01-16] MEDS: APIXABAN 5 MG TAB (ELIQUIS) PO SCH (09:50)
[2020-01-16] MEDS: DULoxetine 30 MG CAP (CYMBALTA) PO SCH (09:50)
[2020-01-16] MEDS: FUROSEMIDE 80 MG TAB PO SCH (09:50)
[2020-01-16] MEDS: DOCUSATE SODIUM 100 MG CAP PO SCH (09:51)
[2020-01-16] MEDS: CYANOCOBALAMIN 500 MCG TAB PO SCH (09:51)
[2020-01-16] MEDS ORDERED: ARNU1INH INH (10:19)
[2020-01-16] MEDS ORDERED: TOPI100T9 PO (10:19)
[2020-01-16] MEDS ORDERED: VITA50005 PO (10:19)
[2020-01-16] MEDS ORDERED: GABA600T4 PO (10:19)
[2020-01-16] MEDS ORDERED: DULO1CAP6 PO (10:19)
[2020-01-16] MEDS ORDERED: KLOR20TA42 PO (10:19)
[2020-01-16] MEDS ORDERED: FURO80TA2 PO (10:19)
[2020-01-16] MEDS ORDERED: OMEP1CAP73 PO (10:19)
[2020-01-16] MEDS ORDERED: PROAAER10 INH (10:19)
[2020-01-16] MEDS ORDERED: VITA100018 PO (10:19)
[2020-01-16] MEDS ORDERED: ENAB15TA PO (10:19)
[2020-01-16 10:30] VITALS: BP 118/83
--- NOTE | 2020-01-16 11:14 | DSES ---
DATE OF ADMISSION: 01/12/2020 DATE OF DISCHARGE: PRINCIPAL DIAGNOSIS; 1. Deep vein thrombosis (DVT) right lower extremity secondary to noncompliance with anticoagulant therapy. SECONDARY DIAGNOSES: 1. Factor V Leiden. 2. Recurrent deep vein thromboses. 3. Migraine headache with aura. 4. Noncardiac chest pains. 5. Venous stasis dermatitis. 6. History of nonepileptic seizures. 7. Status post gastric bypass surgery. 8. Urge incontinence. 9. Gastroesophageal reflux disease. 10. History of major depression. 11. Chronic tremor. 12. Tobacco abuse. PRIMARY CARE PROVIDER: [facility]. HISTORY: Lesley Enciso is a 54-year-old. She was discharged from [facility] 06/2019 for noncompliance and also had a history of opiate diversion. She was admitted with diagnosis of cellulitis, but actually had a DVT of her right lower extremity. She has history of factor V Leiden mutation, previous DVTs and she had not been taking her Eliquis. She actually has not been taking any of her medicines. HOSPITAL COURSE: She was admitted to a medical bed. Diagnosis was clarified. Antibiotics were discontinued. She was started on Eliquis 10 mg twice a day for seven days and then 5 mg twice a day for at least 6 months and strongly would consider maintenance of 2.5 mg twice a day indefinitely. Tolerated this without side effects, bleeding or other problems. She has chronic chest pain that is usually chest wall in origin. Indeed on the day of discharge, she is having chest wall pain which will be summarized below (She had an uncomplicated hospital course, she has pain out of proportion to exam, particularly in her lower extremities where she has venous stasis dermatitis). On the day of discharge, blood pressure (BP) is 118/62, pulse 72, and oxygen saturation is 95% on room air. She is having chest wall pain located at the left sternal border. It is tender to palpate there and even light palpation reproduces her pain. Lungs are clear. Heart regular rhythm. Abdomen soft, nontender. Trace peripheral edema and venous stasis dermatitis. Very tender to touch, to even the lightest touch on both lower legs. She has palpable veins in the popliteal area of the right lower leg. LABS: PT and PTT normal on admission. Sodium 139, potassium 3.4, BUN 14, creatinine 0.8, glucose 97 today. Today's CBC has a white count of 7.1, hemoglobin 13.2, and platelets 186. DISPOSITION: She is discharged in stable condition. Her chest pain today is decidedly chest wall in origin and consists of her previous noncardiac chest pains. She will be discharged on Eliquis 5 mg tablets, two twice a day for 5 more days, then one tablet twice a day for at least six months. I call in to the pharmacy and clarified that she has coverage for this so we could prescribe the appropriate number through [employer]. I gave verbal prescriptions so she has sufficient Eliquis for a one month supply. She also says she is out of her other medicines, so we refilled her albuterol two puffs every 4 hours as needed, her Vitamin B12 1000 mcg daily, Enablex 15 mg daily, Colace 100 mg twice a day, duloxetine 60 mg twice a day, Drisdol 50,000 units weekly, ferrous sulfate 325 mg twice a day, Arnuity Ellipta 100 mcg one puff daily, furosemide 80 mg daily, gabapentin 600 mg three times a day, omeprazole 20 mg twice a day, potassium chloride 20 mEq two tablets twice a day, [id number] senna, Topamax 100 mg twice a day, I stopped her baclofen, Tessalon, multivitamin, nicotine patch and nystatin. Activity is as tolerated. She is on no added salt diet. She received a flu shot during this admission.
== END 2020-01-16 14:00 | disposition home or self-care (01) | DRG 197 ==
LOC: M ED 19:14 → M ED INP 23:23 → ENRESERVTM 01-13 11:58 → ENRESERVDT 01-13 11:58 → M MSPAV 01-13 12:36
PROVIDERS: ADMIT Internal Medicine; ATTEND Family Medicine
DX: I82.411 Acute embolism and thrombosis of right femoral vein (principal); D68.2 Hereditary deficiency of other clotting factors; I82.431 Acute embolism and thrombosis of right popliteal vein; E66.9 Obesity, unspecified; I87.2 Venous insufficiency (chronic) (peripheral); N39.41 Urge incontinence; F32.9 Major depressive disorder, single episode, unspecified; R25.1 Tremor, unspecified; T45.516A Underdosing of anticoagulants, initial encounter; Z86.718 Personal history of other venous thrombosis and embolism; Z86.73 Personal history of transient ischemic attack (TIA), and cerebral infarction without residual deficits; Z98.84 Bariatric surgery status; Z90.49 Acquired absence of other specified parts of digestive tract; Z59.0 Homelessness; Z87.891 Personal history of nicotine dependence; Z68.36 Body mass index [BMI] 36.0-36.9, adult; G43.109 Migraine with aura, not intractable, without status migrainosus; Z79.01 Long term (current) use of anticoagulants; Z79.899 Other long term (current) drug therapy; Z88.0 Allergy status to penicillin; Z88.8 Allergy status to other drugs, medicaments and biological substances; Z91.120 Patient's intentional underdosing of medication regimen due to financial hardship

== ENCOUNTER → 2020-02-13 | Outpatient (REF) | payer MEDICAID ==
[~2020-02-13] MED LIST changes: +BENZ-18 PO; +ELIQ5TAB4 PO; +NICO1DIS9 TD; +NYST1POW9 TOP; +TYLE650T35 PO; +VITA50005 PO
[2020-02-13 18:02] LABS: APPEARANCE, URINE HAZY (CLEAR); BACTERIA, URINE AUTO 3+ (NEGATIVE); BILIRUBIN, URINE AUTO NEGATIVE (NEGATIVE); BLOOD, URINE BLOOD NEGATIVE (NEGATIVE); COLOR, URINE YELLOW (YELLOW); GLUCOSE, URINE (UA) AUTO NEGATIVE (NEGATIVE); KETONE, URINE AUTO TRACE mg/dL (NEGATIVE); LEUKOCYTE ESTERASE, URINE AUTO NEGATIVE (NEGATIVE); MUCUS, URINE SMALL (NEGATIVE); NITRITE, URINE AUTO POSITIVE (NEGATIVE); PROTEIN, URINE AUTO NEGATIVE (NEGATIVE); RBC, URINE AUTO 2 /HPF (0-3); SPECIFIC GRAVITY URINE AUTO 1.026 (1.002-1.035); SQUAMOUS EPITHELIAL CELL UR AU 1 /HPF (0-6); UROBILINOGEN, URINE AUTO 0.2 mg/dL (0.0-2.0); WBC, URINE AUTO 6 /HPF (0-3)
== END ==
LOC: M LAB REF 16:58
PROVIDERS: ATTEND Registered Nurse Community Health
DX: R32 Unspecified urinary incontinence (principal); R35.0 Frequency of micturition

== ENCOUNTER 2022-05-16 19:11 | Emergency (ER) | payer MEDICAID ==
[~2022-05-16] VITALS: Ht 167.6 cm; Wt 95.5 kg
[~2022-05-16 19:11] MED LIST changes: +ACET650T61 PO; +ALBU2.5V10 INH; -ALBU83IN INH; +ERGO500029 PO; -KLOR20TA42 PO; +OMEP40CA4 PO; -OMEP40CA97 PO; +OXYC-1 PO; -OXYC15TA76 PO; +POTA-141 PO; -TYLE650T35 PO; -VITA50005 PO
[2022-05-16 20:25] VITALS: BP 170/90
[2022-05-16] MEDS ORDERED: ALBUTEROL 90 MCG/ACT 8GM HFA INHALER INH ONE (20:30)
[2022-05-16 21:05] LABS: BASO % 0.4 % (0.0-1.0); EOS # 0.2 10^3/uL (0.0-0.5); EOS % 1.9 % (0.0-3.0); HEMATOCRIT 41.5 % (36.0-47.0); HEMOGLOBIN 13.8 g/dl (12.0-15.5); LYMPH # 1.7 10^3/uL (1.5-5.0); MEAN CORPUSCULAR HEMOGLOBIN 32.3 pg (27.0-33.0); MEAN CORPUSCULAR HGB CONC 33.3 g/dl (32.0-36.5); MEAN CORPUSCULAR VOLUME 97.2 fl (80.0-96.0); MONO # 0.8 10^3/uL (0.0-0.8); MONO % 10.2 % (2.0-8.0); NEUTROPHILS # 5.2 10^3/uL (1.5-8.5); NEUTROPHILS % 66.2 % (36.0-66.0); PLATELET COUNT, AUTOMATED 199 10^3/uL (150-450); RED BLOOD COUNT 4.27 10^6/uL (4.00-5.40); WHITE BLOOD COUNT 7.9 10^3/uL (4.0-10.0)
[2022-05-16] MEDS ORDERED: PRED20TA PO (22:23)
[2022-05-16] MEDS ORDERED: ARNU1INH INH (22:23)
[2022-05-16] MEDS ORDERED: ELIQ2.5T PO (22:23)
[2022-05-16] MEDS ORDERED: POTA1TAB14 PO (22:23)
[2022-05-16] MEDS ORDERED: PROV108A INH (22:24)
[2022-05-16] MEDS ORDERED: FURO80TA2 PO (22:24)
== END 2022-05-16 22:45 | disposition home or self-care (01) ==
LOC: M ED 19:11
DX: J44.1 Chronic obstructive pulmonary disease with (acute) exacerbation (principal); R68.84 Jaw pain; I10 Essential (primary) hypertension; Z76.0 Encounter for issue of repeat prescription; H92.09 Otalgia, unspecified ear; I48.91 Unspecified atrial fibrillation; E11.9 Type 2 diabetes mellitus without complications; K21.9 Gastro-esophageal reflux disease without esophagitis; G47.33 Obstructive sleep apnea (adult) (pediatric); D68.2 Hereditary deficiency of other clotting factors; Z79.899 Other long term (current) drug therapy; Z79.01 Long term (current) use of anticoagulants; Z79.51 Long term (current) use of inhaled steroids; Z88.0 Allergy status to penicillin; Z88.1 Allergy status to other antibiotic agents

== ENCOUNTER 2022-05-24 20:26 | Emergency (ER) | payer MEDICAID ==
[~2022-05-24] VITALS: Ht 167.6 cm; Wt 109.0 kg
[~2022-05-24 20:26] MED LIST changes: +POTA1TAB14 PO; +PRED20TA PO; +PROV108A INH
[2022-05-24] MEDS ORDERED: BENZONATATE 100MG CAPSULE PO ONE (22:00)
[2022-05-24] MEDS ORDERED: AZITHROMYCIN 250MG TABLET PO ONE (22:05)
[2022-05-24] MEDS ORDERED: IPRATROPIUM 0.5MG/ALBUTEROL 2.5MG INH SOL UD 3ML (DUONEB) NEB ONE (22:05)
[2022-05-24 23:01] LABS: RSV AMPLIFICATION NEGATIVE (NEGATIVE)
[2022-05-24] MEDS ORDERED: IPRA0.00 NEB (23:09)
[2022-05-24] MEDS ORDERED: AZIT-12 PO (23:09)
[2022-05-24] MEDS ORDERED: BENZ200C70 PO (23:09)
[2022-05-24 23:20] VITALS: BP 126/75
== END 2022-05-24 23:21 | disposition home or self-care (01) ==
LOC: M ED 20:26
DX: J44.1 Chronic obstructive pulmonary disease with (acute) exacerbation (principal); R09.1 Pleurisy; Z79.899 Other long term (current) drug therapy; Z79.01 Long term (current) use of anticoagulants; Z88.0 Allergy status to penicillin; Z88.8 Allergy status to other drugs, medicaments and biological substances; F17.200 Nicotine dependence, unspecified, uncomplicated

== ENCOUNTER 2022-12-22 16:06 | Inpatient (IN) | payer MEDICAID, OTHER ==
[~2022-12-22] VITALS: Ht 167.6 cm; Wt 133.0 kg
[~2022-12-22 16:06] MED LIST changes: +ALBU6.7H6 INH; +AZIT-12 PO; +BENZ200C70 PO; +IPRA0.00 NEB; -PROV108A INH
[2022-12-22 17:01] LABS: VENOUS BASE EXCESS 4.4 (-2.0-2.0); VENOUS HCO3 30.3 MEQ/L (23.0-27.0); VENOUS O2 SATURATION 64.4 % (60.0-80.0); VENOUS PARTIAL PRESSURE CO2 50.5 mmHg (38.0-50.0); VENOUS PARTIAL PRESSURE O2 34.4 mmHg (30.0-50.0); VENOUS PH 7.396 UNITS (7.330-7.430); VENOUS STANDARD HCO3 27.6 MEQ/L; VENOUS TOTAL CO2 31.8 MEQ/L (24.0-28.0)
[2022-12-22 17:15] LABS: BASO # 0.1 10^3/uL (0.0-0.2); BASO % 0.8 % (0.0-1.0); EOS # 0.2 10^3/uL (0.0-0.5); EOS % 3.4 % (0.0-3.0); HEMATOCRIT 37.9 % (36.0-47.0); HEMOGLOBIN 11.8 g/dl (12.0-15.5); LYMPH # 1.7 10^3/uL (1.5-5.0); LYMPH % 28.9 % (24.0-44.0); MEAN CORPUSCULAR HEMOGLOBIN 30.8 pg (27.0-33.0); MEAN CORPUSCULAR HGB CONC 31.1 g/dl (32.0-36.5); MONO # 0.7 10^3/uL (0.0-0.8); MONO % 11.9 % (2.0-8.0); NEUTROPHILS # 3.2 10^3/uL (1.5-8.5); NEUTROPHILS % 53.7 % (36.0-66.0); PLATELET COUNT, AUTOMATED 259 10^3/uL (150-450); RED BLOOD COUNT 3.83 10^6/uL (4.00-5.40)
[2022-12-22 17:15] LABS: RSV AMPLIFICATION NEGATIVE (NEGATIVE)
[2022-12-22 17:34] LABS: CK-MB VALUE MASS < 1.0 NG/ML (<3.6)
[2022-12-22 17:35] LABS: ALBUMIN 3.2 G/DL (3.2-5.2); ALKALINE PHOSPHATASE 106 U/L (46-116); ALT/SGPT 12 U/L (7.0-40); AST/SGOT 20 U/L (<34); BILIRUBIN,DIRECT 0.1 MG/DL (<0.4); BILIRUBIN,TOTAL 0.4 MG/DL (0.3-1.2); BLOOD UREA NITROGEN 14 MG/DL (9-23); CARBON DIOXIDE LEVEL 34 MMOL/L (20-31); CHLORIDE LEVEL 107 MMOL/L (98-107); CPK CREATINE PHOSPHOKINASE 240 U/L (34-145); CREATININE FOR GFR 0.66 MG/DL (0.55-1.30); GLOMERULAR FILTRATION RATE > 60.0 (>51); GLUCOSE, FASTING 89 MG/DL (60-100); MB/CK RELATIVE INDEX 0.41 (< OR =4); POTASSIUM SERUM 3.6 MMOL/L (3.5-5.1); SODIUM LEVEL 144 MMOL/L (136-145)
[2022-12-22 18:25] LABS: CK-MB VALUE MASS < 1.0 NG/ML (<3.6)
[2022-12-22 18:27] LABS: CPK CREATINE PHOSPHOKINASE 236 U/L (34-145); INR 0.97; MB/CK RELATIVE INDEX 0.42 (< OR =4); PROTHROMBIN TIME 13.1 SECONDS (12.5-14.5)
[2022-12-22 18:28] LABS: PARTIAL THROMBOPLASTIN TIME 25.4 SECONDS (24.8-34.2)
[2022-12-22] MEDS ORDERED: ISOVUE-370 76% 100ML VIAL As Ordered ONE (18:32)
[2022-12-22] MEDS ORDERED: ALBUTEROL SULFATE 2.5MG/0.5ML INH NEB SOLN NEB ONE (19:25)
[2022-12-22] MEDS ORDERED: IPRATROPIUM 0.5MG/ALBUTEROL 2.5MG INH SOL UD 3ML (DUONEB) NEB ONE (19:25)
[2022-12-22] MEDS ORDERED: methylPREDNISolone 125MG 2ML VIAL IV ONE (19:25)
[2022-12-22 20:34] LABS: CK-MB VALUE MASS < 1.0 NG/ML (<3.6)
[2022-12-22 20:40] LABS: CPK CREATINE PHOSPHOKINASE 213 U/L (34-145); MB/CK RELATIVE INDEX 0.46 (< OR =4)
[2022-12-22] MEDS ORDERED: ASPIRIN 81MG CHEW TABLET PO ONE (21:10)
[2022-12-22] MEDS ORDERED: BENZ-18 PO (23:24)
[2022-12-22] MEDS ORDERED: HOME MED LIST COMPLETE! XX SCH (23:25)
[2022-12-22 23:55] VITALS: BP 158/96
[2022-12-22] MEDS ORDERED: MAALOX 30 ML SUSP *UDC PO PRN (23:55)
[2022-12-22] MEDS ORDERED: MOM 30ML SUSPENSION UDC PO PRN (23:55)
[2022-12-23 01:06] VITALS: BP 155/92
[2022-12-23] MEDS: ACETAMINOPHEN TAB 650MG DOSE (2X325MG) PO PRN (01:24)
[2022-12-23] MEDS: APIXABAN 5 MG TAB (ELIQUIS) PO SCH ×2 (01:24→08:21)
[2022-12-23] MEDS ORDERED: ALBUTEROL SULFATE 2.5MG/0.5ML INH NEB SOLN NEB PRN (02:00)
[2022-12-23] MEDS: IPRATROPIUM 0.5MG/ALBUTEROL 2.5MG INH SOL UD 3ML (DUONEB) NEB SCH ×7 (03:53→23:37)
[2022-12-23 05:17] VITALS: BP 141/78
[2022-12-23 06:00] VITALS: BP 141/78
[2022-12-23] MEDS: FUROSEMIDE 40 MG TAB PO SCH (08:21)
[2022-12-23] MEDS: NICOTINE 21MG/24HR 1 EA TRANSDERMAL TD SCH (08:22)
[2022-12-23] MEDS ORDERED: ASPIRIN 81MG ENTERIC TABLET PO SCH (09:00)
[2022-12-23 10:30] LABS: HEMATOCRIT 39.5 % (36.0-47.0); HEMOGLOBIN 12.3 g/dl (12.0-15.5)
[2022-12-23 10:44] LABS: BLOOD UREA NITROGEN 13 MG/DL (9-23); CALCIUM LEVEL 8.8 MG/DL (8.5-10.1); CARBON DIOXIDE LEVEL 24 MMOL/L (20-31); CHLORIDE LEVEL 104 MMOL/L (98-107); CREATININE FOR GFR 0.61 MG/DL (0.55-1.30); GLOMERULAR FILTRATION RATE > 60.0 (>51); GLUCOSE, FASTING 229 MG/DL (60-100); POTASSIUM SERUM 4.1 MMOL/L (3.5-5.1); SODIUM LEVEL 140 MMOL/L (136-145)
[2022-12-23] MEDS: MORPHINE 4 MG/ML 1ML VIAL IV PRN ×2 (11:11→17:46)
[2022-12-23] MEDS: methylPREDNISolone 40MG 1ML VIAL IV SCH (11:11)
[2022-12-23] MEDS: ROSUVASTATIN 10 MG TAB (CRESTOR) PO SCH (11:19)
[2022-12-23] MEDS ORDERED: MORPHINE 2 MG/ML 1ML VIAL IV ONE (13:00)
[2022-12-23] MEDS: OMEPRAZOLE 20MG CAP PO SCH (13:27)
[2022-12-23] MEDS: IBUPROFEN 800 MG TAB PO PRN (13:28)
[2022-12-23 13:50] LABS: CA19-9 TUMOR MARKER,CARBOHYDRA 39.5 U/ML (<35.0)
[2022-12-23] MEDS ORDERED: HYDROMORPHONE HCL 0.5 MG/ 0.5 ML SYRINGE IV ONE (14:15)
[2022-12-23 15:00] VITALS: BP 113/74
[2022-12-23 15:15] LABS: CK-MB VALUE MASS < 1.0 NG/ML (<3.6); CPK CREATINE PHOSPHOKINASE 182 U/L (34-145); MB/CK RELATIVE INDEX 0.54 (< OR =4)
[2022-12-23] MEDS ORDERED: DOXYCYCLINE HYCLATE 100MG TABLET PO SCH (17:10)
[2022-12-23 18:37] LABS: HEMOGLOBIN 11.6 g/dl (12.0-15.5)
[2022-12-23 20:00] VITALS: BP 124/74
[2022-12-23] MEDS: ENOXAPARIN 120MG/0.8ML SYRINGE SC SCH (21:03)
[2022-12-24] MEDS: MORPHINE 4 MG/ML 1ML VIAL IV PRN ×2 (00:15→09:34)
[2022-12-24] MEDS: IBUPROFEN 800 MG TAB PO PRN ×2 (00:23→22:09)
[2022-12-24 02:11] LABS: HEMOGLOBIN 10.4 g/dl (12.0-15.5)
[2022-12-24] MEDS: IPRATROPIUM 0.5MG/ALBUTEROL 2.5MG INH SOL UD 3ML (DUONEB) NEB SCH ×6 (03:25→23:23)
[2022-12-24] MEDS ORDERED: HYDROMORPHONE HCL 0.5 MG/ 0.5 ML SYRINGE IV ONE (03:50)
[2022-12-24 06:00] VITALS: BP 119/76
[2022-12-24 06:21] LABS: HEMATOCRIT 34.2 % (36.0-47.0); HEMOGLOBIN 10.7 g/dl (12.0-15.5); MEAN CORPUSCULAR HEMOGLOBIN 31.5 pg (27.0-33.0); MEAN CORPUSCULAR HGB CONC 31.3 g/dl (32.0-36.5); MEAN CORPUSCULAR VOLUME 100.6 fl (80.0-96.0); PLATELET COUNT, AUTOMATED 279 10^3/uL (150-450); WHITE BLOOD COUNT 11.6 10^3/uL (4.0-10.0)
[2022-12-24 06:56] LABS: BLOOD UREA NITROGEN 18 MG/DL (9-23); CALCIUM LEVEL 8.4 MG/DL (8.5-10.1); CARBON DIOXIDE LEVEL 28 MMOL/L (20-31); CHLORIDE LEVEL 103 MMOL/L (98-107); CREATININE FOR GFR 0.89 MG/DL (0.55-1.30); GLOMERULAR FILTRATION RATE > 60.0 (>51); GLUCOSE, FASTING 106 MG/DL (60-100); MAGNESIUM LEVEL 1.9 MG/DL (1.8-2.4); PHOSPHORUS LEVEL 5.5 MG/DL (2.5-4.9); POTASSIUM SERUM 3.9 MMOL/L (3.5-5.1); SODIUM LEVEL 138 MMOL/L (136-145)
[2022-12-24] MEDS: NICOTINE 21MG/24HR 1 EA TRANSDERMAL TD SCH (09:17)
[2022-12-24] MEDS: OMEPRAZOLE 20MG CAP PO SCH (09:19)
[2022-12-24] MEDS: ROSUVASTATIN 10 MG TAB (CRESTOR) PO SCH (09:19)
[2022-12-24] MEDS: FUROSEMIDE 40 MG TAB PO SCH (09:19)
[2022-12-24] MEDS: ENOXAPARIN 120MG/0.8ML SYRINGE SC SCH ×2 (09:20→21:53)
[2022-12-24 10:10] LABS: HEMATOCRIT 33.6 % (36.0-47.0); HEMOGLOBIN 10.5 g/dl (12.0-15.5)
[2022-12-24] MEDS: methylPREDNISolone 40MG 1ML VIAL IV SCH (11:39)
[2022-12-24 14:00] VITALS: BP 122/74
[2022-12-24] MEDS: HYDROMORPHONE HCL 0.5 MG/ 0.5 ML SYRINGE IV PRN ×2 (15:34→21:54)
[2022-12-24] MEDS: ADVAIR HFA 230/21MCG INHALER INH SCH (19:29)
[2022-12-24 20:00] VITALS: BP 132/79
[2022-12-24 22:21] LABS: HEMATOCRIT 35.7 % (36.0-47.0); HEMOGLOBIN 11.2 g/dl (12.0-15.5)
[2022-12-24] MEDS: MORPHINE 2 MG/ML 1ML VIAL IV PRN (22:38)
[2022-12-24] MEDS: BENZONATATE 100MG CAPSULE PO PRN (23:32)
[2022-12-25] MEDS: IPRATROPIUM 0.5MG/ALBUTEROL 2.5MG INH SOL UD 3ML (DUONEB) NEB SCH ×6 (03:01→23:15)
[2022-12-25] MEDS: HYDROMORPHONE HCL 0.5 MG/ 0.5 ML SYRINGE IV PRN (03:03)
[2022-12-25] MEDS ORDERED: LORazepam 2 MG/ML 1ML VIAL IV STA ×2 (04:06→15:45)
[2022-12-25] MEDS ORDERED: HYDROMORPHONE HCL 0.5 MG/ 0.5 ML SYRINGE IV ONE ×3 (04:10→14:00)
[2022-12-25] MEDS ORDERED: ISOVUE-370 76% 100ML VIAL As Ordered ONE (05:00)
[2022-12-25 06:00] VITALS: BP 138/86
[2022-12-25 06:28] LABS: HEMATOCRIT 34.3 % (36.0-47.0); HEMOGLOBIN 10.7 g/dl (12.0-15.5); MEAN CORPUSCULAR HGB CONC 31.2 g/dl (32.0-36.5); MEAN CORPUSCULAR VOLUME 99.4 fl (80.0-96.0); PLATELET COUNT, AUTOMATED 300 10^3/uL (150-450); RED BLOOD COUNT 3.45 10^6/uL (4.00-5.40); WHITE BLOOD COUNT 9.3 10^3/uL (4.0-10.0)
[2022-12-25 06:42] LABS: BLOOD UREA NITROGEN 19 MG/DL (9-23); CALCIUM LEVEL 8.4 MG/DL (8.5-10.1); CARBON DIOXIDE LEVEL 27 MMOL/L (20-31); CHLORIDE LEVEL 101 MMOL/L (98-107); CREATININE FOR GFR 0.78 MG/DL (0.55-1.30); GLOMERULAR FILTRATION RATE > 60.0 (>51); GLUCOSE, FASTING 91 MG/DL (60-100); MAGNESIUM LEVEL 1.9 MG/DL (1.8-2.4); SODIUM LEVEL 136 MMOL/L (136-145)
[2022-12-25] MEDS: MORPHINE 2 MG/ML 1ML VIAL IV PRN (06:44)
[2022-12-25] MEDS: ADVAIR HFA 230/21MCG INHALER INH SCH ×2 (08:21→19:31)
[2022-12-25] MEDS: methylPREDNISolone 40MG 1ML VIAL IV SCH (10:23)
[2022-12-25] MEDS: ENOXAPARIN 40MG/0.4ML SYRINGE (J1650 PER 10MG) SC SCH ×2 (10:23→20:17)
[2022-12-25] MEDS: NICOTINE 21MG/24HR 1 EA TRANSDERMAL TD SCH (10:24)
[2022-12-25] MEDS: OMEPRAZOLE 20MG CAP PO SCH (10:24)
[2022-12-25] MEDS: ROSUVASTATIN 10 MG TAB (CRESTOR) PO SCH (10:28)
[2022-12-25] MEDS: FUROSEMIDE 40 MG TAB PO SCH (10:28)
[2022-12-25 14:00] VITALS: BP 130/83
[2022-12-25 14:00] LABS: HEMATOCRIT 37.9 % (36.0-47.0); HEMOGLOBIN 11.8 g/dl (12.0-15.5)
[2022-12-25] MEDS ORDERED: BISACODYL 10MG SUPP PR ONE (14:20)
[2022-12-25] MEDS ORDERED: NALOXONE INJ 0.4MG/1ML VIAL IV PRN (14:20)
[2022-12-25] MEDS ORDERED: NS 500 ML IV ONE (15:35)
[2022-12-25] MEDS: ESCITALOPRAM OXALATE 5MG TABLET (LEXAPRO) PO SCH (16:41)
[2022-12-25 20:00] VITALS: BP 135/88
[2022-12-25] MEDS: oxyCODONE 10 MG CR TAB PO SCH (20:16)
[2022-12-25] MEDS: DOCUSATE SODIUM 100MG CAPSULE PO SCH (20:17)
[2022-12-25 22:10] LABS: HEMATOCRIT 33.8 % (36.0-47.0); HEMOGLOBIN 10.7 g/dl (12.0-15.5)
[2022-12-25] MEDS: oxyCODONE 5MG TAB PO PRN (22:19)
[2022-12-26] MEDS: IPRATROPIUM 0.5MG/ALBUTEROL 2.5MG INH SOL UD 3ML (DUONEB) NEB SCH ×6 (03:53→23:54)
[2022-12-26] MEDS: HYDROMORPHONE HCL 0.5 MG/ 0.5 ML SYRINGE IV PRN (04:13)
[2022-12-26 06:00] VITALS: BP 140/80
[2022-12-26 06:00] LABS: HEMATOCRIT 31.9 % (36.0-47.0); MEAN CORPUSCULAR HEMOGLOBIN 31.1 pg (27.0-33.0); MEAN CORPUSCULAR HGB CONC 31.3 g/dl (32.0-36.5); MEAN CORPUSCULAR VOLUME 99.1 fl (80.0-96.0); PLATELET COUNT, AUTOMATED 285 10^3/uL (150-450); RED BLOOD COUNT 3.22 10^6/uL (4.00-5.40); WHITE BLOOD COUNT 8.1 10^3/uL (4.0-10.0)
[2022-12-26 06:29] LABS: BLOOD UREA NITROGEN 20 MG/DL (9-23); CALCIUM LEVEL 8.4 MG/DL (8.5-10.1); CARBON DIOXIDE LEVEL 28 MMOL/L (20-31); CHLORIDE LEVEL 104 MMOL/L (98-107); CREATININE FOR GFR 0.78 MG/DL (0.55-1.30); GLOMERULAR FILTRATION RATE > 60.0 (>51); GLUCOSE, FASTING 93 MG/DL (60-100); POTASSIUM SERUM 4.1 MMOL/L (3.5-5.1); SODIUM LEVEL 140 MMOL/L (136-145)
[2022-12-26] MEDS: ADVAIR HFA 230/21MCG INHALER INH SCH ×2 (07:52→19:33)
[2022-12-26] MEDS: NICOTINE 21MG/24HR 1 EA TRANSDERMAL TD SCH (08:40)
[2022-12-26] MEDS: ESCITALOPRAM OXALATE 5MG TABLET (LEXAPRO) PO SCH (08:41)
[2022-12-26] MEDS: ROSUVASTATIN 10 MG TAB (CRESTOR) PO SCH (08:41)
[2022-12-26] MEDS: OMEPRAZOLE 20MG CAP PO SCH (08:41)
[2022-12-26] MEDS: DOCUSATE SODIUM 100MG CAPSULE PO SCH ×2 (08:41→20:06)
[2022-12-26] MEDS: predniSONE 20 MG TAB PO SCH (08:41)
[2022-12-26] MEDS: ENOXAPARIN 40MG/0.4ML SYRINGE (J1650 PER 10MG) SC SCH ×2 (08:41→20:07)
[2022-12-26] MEDS: MIRALAX *UNIT DOSE* 17GM PACKET PO SCH (08:43)
[2022-12-26] MEDS: oxyCODONE 10 MG CR TAB PO SCH ×2 (08:43→20:07)
[2022-12-26] MEDS: oxyCODONE 5MG TAB PO PRN (13:21)
[2022-12-26] MEDS: BENZONATATE 100MG CAPSULE PO PRN (13:24)
[2022-12-26 14:00] VITALS: BP 148/89
[2022-12-26 14:18] LABS: HEMATOCRIT 35.2 % (36.0-47.0); HEMOGLOBIN 11.1 g/dl (12.0-15.5)
[2022-12-26 21:00] VITALS: BP 145/85
[2022-12-26 22:05] LABS: HEMATOCRIT 32.6 % (36.0-47.0); HEMOGLOBIN 10.2 g/dl (12.0-15.5)
[2022-12-27] MEDS: oxyCODONE 5MG TAB PO PRN ×4 (01:21→19:26)
[2022-12-27] MEDS: HYDROMORPHONE HCL 0.5 MG/ 0.5 ML SYRINGE IV PRN ×2 (01:26→23:41)
[2022-12-27] MEDS: IPRATROPIUM 0.5MG/ALBUTEROL 2.5MG INH SOL UD 3ML (DUONEB) NEB SCH ×6 (04:34→23:19)
[2022-12-27 05:39] LABS: HEMATOCRIT 33.1 % (36.0-47.0); HEMOGLOBIN 10.2 g/dl (12.0-15.5); MEAN CORPUSCULAR HGB CONC 30.8 g/dl (32.0-36.5); MEAN CORPUSCULAR VOLUME 100.6 fl (80.0-96.0); PLATELET COUNT, AUTOMATED 294 10^3/uL (150-450); RED BLOOD COUNT 3.29 10^6/uL (4.00-5.40)
[2022-12-27 05:55] VITALS: BP 128/68
[2022-12-27 06:03] LABS: BLOOD UREA NITROGEN 26 MG/DL (9-23); CALCIUM LEVEL 8.1 MG/DL (8.5-10.1); CARBON DIOXIDE LEVEL 30 MMOL/L (20-31); CHLORIDE LEVEL 104 MMOL/L (98-107); CREATININE FOR GFR 0.71 MG/DL (0.55-1.30); GLOMERULAR FILTRATION RATE > 60.0 (>51); GLUCOSE, FASTING 92 MG/DL (60-100); PHOSPHORUS LEVEL 4.2 MG/DL (2.5-4.9); POTASSIUM SERUM 4.1 MMOL/L (3.5-5.1); SODIUM LEVEL 140 MMOL/L (136-145)
[2022-12-27] MEDS: ADVAIR HFA 230/21MCG INHALER INH SCH ×2 (07:37→20:05)
[2022-12-27] MEDS: NICOTINE 21MG/24HR 1 EA TRANSDERMAL TD SCH (09:39)
[2022-12-27] MEDS: MIRALAX *UNIT DOSE* 17GM PACKET PO SCH (09:39)
[2022-12-27] MEDS: OMEPRAZOLE 20MG CAP PO SCH (09:40)
[2022-12-27] MEDS: ESCITALOPRAM OXALATE 5MG TABLET (LEXAPRO) PO SCH (09:40)
[2022-12-27] MEDS: predniSONE 20 MG TAB PO SCH (09:41)
[2022-12-27] MEDS: ENOXAPARIN 40MG/0.4ML SYRINGE (J1650 PER 10MG) SC SCH ×2 (09:41→20:49)
[2022-12-27] MEDS: DOCUSATE SODIUM 100MG CAPSULE PO SCH ×2 (09:41→20:49)
[2022-12-27] MEDS: ROSUVASTATIN 10 MG TAB (CRESTOR) PO SCH (09:41)
[2022-12-27] MEDS: oxyCODONE 10 MG CR TAB PO SCH ×2 (09:41→21:00)
[2022-12-27] MEDS: FUROSEMIDE 20 MG TAB PO SCH (09:42)
[2022-12-27 14:00] VITALS: BP 126/70
[2022-12-27] MEDS: BENZONATATE 100MG CAPSULE PO PRN (14:53)
[2022-12-27 14:55] LABS: HEMATOCRIT 32.7 % (36.0-47.0)
[2022-12-27 22:00] VITALS: BP 158/90
[2022-12-27 22:17] LABS: HEMATOCRIT 33.2 % (36.0-47.0); HEMOGLOBIN 10.4 g/dl (12.0-15.5)
[2022-12-28] MEDS: IPRATROPIUM 0.5MG/ALBUTEROL 2.5MG INH SOL UD 3ML (DUONEB) NEB SCH ×6 (03:04→23:47)
[2022-12-28 05:27] VITALS: BP 120/55
[2022-12-28 05:51] LABS: HEMATOCRIT 30.3 % (36.0-47.0); HEMOGLOBIN 9.5 g/dl (12.0-15.5); MEAN CORPUSCULAR HEMOGLOBIN 31.4 pg (27.0-33.0); MEAN CORPUSCULAR HGB CONC 31.4 g/dl (32.0-36.5); PLATELET COUNT, AUTOMATED 298 10^3/uL (150-450); RED BLOOD COUNT 3.03 10^6/uL (4.00-5.40); WHITE BLOOD COUNT 8.4 10^3/uL (4.0-10.0)
[2022-12-28 06:12] LABS: BLOOD UREA NITROGEN 24 MG/DL (9-23); CALCIUM LEVEL 7.9 MG/DL (8.5-10.1); CARBON DIOXIDE LEVEL 28 MMOL/L (20-31); CHLORIDE LEVEL 103 MMOL/L (98-107); CREATININE FOR GFR 0.75 MG/DL (0.55-1.30); GLOMERULAR FILTRATION RATE > 60.0 (>51); GLUCOSE, FASTING 83 MG/DL (60-100); POTASSIUM SERUM 4.2 MMOL/L (3.5-5.1); SODIUM LEVEL 138 MMOL/L (136-145)
[2022-12-28] MEDS: HYDROMORPHONE HCL 0.5 MG/ 0.5 ML SYRINGE IV PRN ×2 (06:43→23:29)
[2022-12-28] MEDS: ADVAIR HFA 230/21MCG INHALER INH SCH ×2 (08:43→20:22)
[2022-12-28] MEDS: OMEPRAZOLE 20MG CAP PO SCH (09:59)
[2022-12-28] MEDS: DOCUSATE SODIUM 100MG CAPSULE PO SCH ×2 (09:59→20:18)
[2022-12-28] MEDS: predniSONE 20 MG TAB PO SCH (09:59)
[2022-12-28] MEDS: MIRALAX *UNIT DOSE* 17GM PACKET PO SCH (09:59)
[2022-12-28] MEDS: NICOTINE 21MG/24HR 1 EA TRANSDERMAL TD SCH (10:00)
[2022-12-28] MEDS: FUROSEMIDE 20 MG TAB PO SCH (10:01)
[2022-12-28] MEDS: ROSUVASTATIN 10 MG TAB (CRESTOR) PO SCH (10:01)
[2022-12-28] MEDS: ESCITALOPRAM OXALATE 5MG TABLET (LEXAPRO) PO SCH (10:01)
[2022-12-28] MEDS: ENOXAPARIN 40MG/0.4ML SYRINGE (J1650 PER 10MG) SC SCH ×2 (10:01→20:17)
[2022-12-28] MEDS: oxyCODONE 10 MG CR TAB PO SCH ×2 (10:03→20:18)
[2022-12-28 14:00] VITALS: BP 130/74
[2022-12-28] MEDS: oxyCODONE 5MG TAB PO PRN (15:39)
[2022-12-28 19:50] VITALS: BP 152/85
[2022-12-29] MEDS: IPRATROPIUM 0.5MG/ALBUTEROL 2.5MG INH SOL UD 3ML (DUONEB) NEB SCH ×6 (03:34→23:21)
[2022-12-29 06:00] VITALS: BP 119/69
[2022-12-29 06:17] LABS: HEMATOCRIT 30.2 % (36.0-47.0); HEMOGLOBIN 9.5 g/dl (12.0-15.5); MEAN CORPUSCULAR HEMOGLOBIN 31.4 pg (27.0-33.0); MEAN CORPUSCULAR HGB CONC 31.5 g/dl (32.0-36.5); MEAN CORPUSCULAR VOLUME 99.7 fl (80.0-96.0); PLATELET COUNT, AUTOMATED 294 10^3/uL (150-450); RED BLOOD COUNT 3.03 10^6/uL (4.00-5.40); WHITE BLOOD COUNT 7.5 10^3/uL (4.0-10.0)
[2022-12-29 06:34] LABS: BLOOD UREA NITROGEN 21 MG/DL (9-23); CALCIUM LEVEL 8.1 MG/DL (8.5-10.1); CARBON DIOXIDE LEVEL 29 MMOL/L (20-31); CHLORIDE LEVEL 103 MMOL/L (98-107); CREATININE FOR GFR 0.79 MG/DL (0.55-1.30); GLOMERULAR FILTRATION RATE > 60.0 (>51); GLUCOSE, FASTING 93 MG/DL (60-100); MAGNESIUM LEVEL 2.2 MG/DL (1.8-2.4); POTASSIUM SERUM 4.2 MMOL/L (3.5-5.1); SODIUM LEVEL 139 MMOL/L (136-145)
[2022-12-29] MEDS: DOCUSATE SODIUM 100MG CAPSULE PO SCH ×2 (08:05→21:38)
[2022-12-29] MEDS: OMEPRAZOLE 20MG CAP PO SCH (08:05)
[2022-12-29] MEDS: ROSUVASTATIN 10 MG TAB (CRESTOR) PO SCH (08:06)
[2022-12-29] MEDS: predniSONE 20 MG TAB PO SCH (08:06)
[2022-12-29] MEDS: FUROSEMIDE 20 MG TAB PO SCH (08:06)
[2022-12-29] MEDS: MIRALAX *UNIT DOSE* 17GM PACKET PO SCH (08:06)
[2022-12-29] MEDS: HYDROMORPHONE HCL 0.5 MG/ 0.5 ML SYRINGE IV PRN ×2 (08:07→18:44)
[2022-12-29] MEDS: ENOXAPARIN 40MG/0.4ML SYRINGE (J1650 PER 10MG) SC SCH ×2 (08:07→21:38)
[2022-12-29] MEDS: NICOTINE 21MG/24HR 1 EA TRANSDERMAL TD SCH (08:07)
[2022-12-29] MEDS: ESCITALOPRAM OXALATE 5MG TABLET (LEXAPRO) PO SCH (08:14)
[2022-12-29 08:15] VITALS: O2SAT 95
[2022-12-29] MEDS: ADVAIR HFA 230/21MCG INHALER INH SCH ×2 (08:17→19:40)
[2022-12-29] MEDS: oxyCODONE 10 MG CR TAB PO SCH ×2 (09:28→21:38)
[2022-12-29 12:02] VITALS: O2SAT 94
[2022-12-29] MEDS: oxyCODONE 5MG TAB PO PRN (13:54)
[2022-12-29 14:00] VITALS: BP 128/71
[2022-12-29 15:54] VITALS: O2SAT 92
[2022-12-29 17:31] LABS: PERCENT SATURATION 11.9 % (13.2-45.0)
[2022-12-29 17:33] LABS: FERRITIN 64.7 NG/ML (7.3-270.7)
[2022-12-29 17:34] LABS: FOLATE 10.56 NG/ML (>5.4)
[2022-12-29 20:30] VITALS: BP 128/69
[2022-12-30] VITALS (7 sets, daily range): BP systolic 133–141; BP diastolic 71–79; O2SAT 91–96
[2022-12-30] MEDS: oxyCODONE 5MG TAB PO PRN ×3 (00:07→23:41)
[2022-12-30] MEDS: IPRATROPIUM 0.5MG/ALBUTEROL 2.5MG INH SOL UD 3ML (DUONEB) NEB SCH ×6 (03:11→23:26)
[2022-12-30] MEDS: HYDROMORPHONE HCL 0.5 MG/ 0.5 ML SYRINGE IV PRN ×2 (03:33→17:50)
[2022-12-30 05:53] LABS: HEMATOCRIT 31.7 % (36.0-47.0); HEMOGLOBIN 9.8 g/dl (12.0-15.5); MEAN CORPUSCULAR HEMOGLOBIN 30.8 pg (27.0-33.0); MEAN CORPUSCULAR HGB CONC 30.9 g/dl (32.0-36.5); MEAN CORPUSCULAR VOLUME 99.7 fl (80.0-96.0); PLATELET COUNT, AUTOMATED 311 10^3/uL (150-450); RED BLOOD COUNT 3.18 10^6/uL (4.00-5.40); WHITE BLOOD COUNT 8.2 10^3/uL (4.0-10.0)
[2022-12-30 06:22] LABS: BLOOD UREA NITROGEN 20 MG/DL (9-23); CARBON DIOXIDE LEVEL 28 MMOL/L (20-31); CHLORIDE LEVEL 103 MMOL/L (98-107); GLOMERULAR FILTRATION RATE > 60.0 (>51); GLUCOSE, FASTING 93 MG/DL (60-100); MAGNESIUM LEVEL 2.1 MG/DL (1.8-2.4); PHOSPHORUS LEVEL 5.2 MG/DL (2.5-4.9); POTASSIUM SERUM 4.2 MMOL/L (3.5-5.1); SODIUM LEVEL 139 MMOL/L (136-145)
[2022-12-30] MEDS: NICOTINE 21MG/24HR 1 EA TRANSDERMAL TD SCH (08:33)
[2022-12-30] MEDS: MIRALAX *UNIT DOSE* 17GM PACKET PO SCH (08:34)
[2022-12-30] MEDS: ROSUVASTATIN 10 MG TAB (CRESTOR) PO SCH (08:35)
[2022-12-30] MEDS: OMEPRAZOLE 20MG CAP PO SCH (08:35)
[2022-12-30] MEDS: predniSONE 20 MG TAB PO SCH (08:35)
[2022-12-30] MEDS: FUROSEMIDE 20 MG TAB PO SCH (08:36)
[2022-12-30] MEDS: DOCUSATE SODIUM 100MG CAPSULE PO SCH ×2 (08:36→20:26)
[2022-12-30] MEDS: ESCITALOPRAM OXALATE 5MG TABLET (LEXAPRO) PO SCH (08:36)
[2022-12-30] MEDS: oxyCODONE 10 MG CR TAB PO SCH ×2 (08:37→20:28)
[2022-12-30] MEDS: ENOXAPARIN 40MG/0.4ML SYRINGE (J1650 PER 10MG) SC SCH ×2 (08:38→20:28)
[2022-12-30] MEDS: ADVAIR HFA 230/21MCG INHALER INH SCH ×2 (08:51→19:51)
[2022-12-30] MEDS ORDERED: FUROSEMIDE 20MG/2ML VIAL IV ONE (16:00)
[2022-12-30 17:07] LABS: THYROID STIMULATING HORMONE 1.99 uIU/ML (0.55-4.78)
[2022-12-30 17:08] LABS: FREE T4 0.93 NG/DL (0.89-1.76)
[2022-12-31] MEDS: HYDROMORPHONE HCL 0.5 MG/ 0.5 ML SYRINGE IV PRN ×2 (02:02→10:03)
[2022-12-31] MEDS: IPRATROPIUM 0.5MG/ALBUTEROL 2.5MG INH SOL UD 3ML (DUONEB) NEB SCH ×6 (03:10→23:22)
[2022-12-31 05:10] VITALS: BP 114/62
[2022-12-31 05:39] LABS: HEMATOCRIT 31.5 % (36.0-47.0); HEMOGLOBIN 9.6 g/dl (12.0-15.5); MEAN CORPUSCULAR HEMOGLOBIN 30.3 pg (27.0-33.0); MEAN CORPUSCULAR HGB CONC 30.5 g/dl (32.0-36.5); MEAN CORPUSCULAR VOLUME 99.4 fl (80.0-96.0); PLATELET COUNT, AUTOMATED 296 10^3/uL (150-450); RED BLOOD COUNT 3.17 10^6/uL (4.00-5.40); WHITE BLOOD COUNT 7.4 10^3/uL (4.0-10.0)
[2022-12-31 06:03] LABS: BLOOD UREA NITROGEN 20 MG/DL (9-23); CALCIUM LEVEL 8.3 MG/DL (8.5-10.1); CARBON DIOXIDE LEVEL 29 MMOL/L (20-31); CHLORIDE LEVEL 102 MMOL/L (98-107); CREATININE FOR GFR 0.73 MG/DL (0.55-1.30); GLOMERULAR FILTRATION RATE > 60.0 (>51); GLUCOSE, FASTING 110 MG/DL (60-100); POTASSIUM SERUM 3.8 MMOL/L (3.5-5.1); SODIUM LEVEL 139 MMOL/L (136-145)
[2022-12-31] MEDS: MIRALAX *UNIT DOSE* 17GM PACKET PO SCH (08:23)
[2022-12-31] MEDS: ENOXAPARIN 40MG/0.4ML SYRINGE (J1650 PER 10MG) SC SCH ×2 (08:23→20:53)
[2022-12-31] MEDS: NICOTINE 21MG/24HR 1 EA TRANSDERMAL TD SCH (08:24)
[2022-12-31] MEDS: OMEPRAZOLE 20MG CAP PO SCH (08:24)
[2022-12-31] MEDS: ESCITALOPRAM OXALATE 5MG TABLET (LEXAPRO) PO SCH (08:24)
[2022-12-31] MEDS: predniSONE 20 MG TAB PO SCH (08:24)
[2022-12-31] MEDS: DOCUSATE SODIUM 100MG CAPSULE PO SCH ×2 (08:25→20:52)
[2022-12-31] MEDS: oxyCODONE 10 MG CR TAB PO SCH (08:25)
[2022-12-31] MEDS: FUROSEMIDE 20 MG TAB PO SCH (08:25)
[2022-12-31] MEDS: ROSUVASTATIN 10 MG TAB (CRESTOR) PO SCH (08:25)
[2022-12-31 08:28] VITALS: O2SAT 94
[2022-12-31] MEDS: ADVAIR HFA 230/21MCG INHALER INH SCH ×2 (08:28→20:07)
[2022-12-31] MEDS ORDERED: ISOVUE-370 76% 100ML VIAL As Ordered ONE (09:35)
[2022-12-31] MEDS: oxyCODONE 5MG TAB PO PRN ×3 (10:02→22:36)
[2022-12-31 11:22] VITALS: O2SAT 92
[2022-12-31 14:00] VITALS: BP 128/68
[2022-12-31] MEDS: oxyCODONE 15MG CR TAB PO SCH (20:53)
[2022-12-31 21:45] VITALS: BP 125/71
[2022-12-31] MEDS ORDERED: oxyCODONE 5MG TAB PO ONE (23:25)
[2022-12-31 23:32] LABS: HEMATOCRIT 32.2 % (36.0-47.0); HEMOGLOBIN 10.2 g/dl (12.0-15.5)
[2023-01-01] MEDS ORDERED: HYDROMORPHONE HCL 0.5 MG/ 0.5 ML SYRINGE IV ONE ×3 (02:00→03:00)
[2023-01-01 02:21] VITALS: BP 122/73
[2023-01-01 03:00] LABS: HEMATOCRIT 33.2 % (36.0-47.0); HEMOGLOBIN 10.3 g/dl (12.0-15.5)
[2023-01-01] MEDS: IPRATROPIUM 0.5MG/ALBUTEROL 2.5MG INH SOL UD 3ML (DUONEB) NEB SCH ×6 (03:38→23:27)
[2023-01-01 05:20] VITALS: BP 122/74
[2023-01-01 05:46] LABS: HEMATOCRIT 34.9 % (36.0-47.0); HEMOGLOBIN 10.6 g/dl (12.0-15.5); MEAN CORPUSCULAR HEMOGLOBIN 30.5 pg (27.0-33.0); MEAN CORPUSCULAR HGB CONC 30.4 g/dl (32.0-36.5); MEAN CORPUSCULAR VOLUME 100.3 fl (80.0-96.0); PLATELET COUNT, AUTOMATED 286 10^3/uL (150-450); RED BLOOD COUNT 3.48 10^6/uL (4.00-5.40); WHITE BLOOD COUNT 7.1 10^3/uL (4.0-10.0)
[2023-01-01 06:08] LABS: LIPASE 50 U/L (12-53)
[2023-01-01 06:12] LABS: BLOOD UREA NITROGEN 19 MG/DL (9-23); CALCIUM LEVEL 8.3 MG/DL (8.5-10.1); CARBON DIOXIDE LEVEL 31 MMOL/L (20-31); CHLORIDE LEVEL 104 MMOL/L (98-107); CREATININE FOR GFR 0.84 MG/DL (0.55-1.30); GLOMERULAR FILTRATION RATE > 60.0 (>51); GLUCOSE, FASTING 84 MG/DL (60-100); MAGNESIUM LEVEL 2.1 MG/DL (1.8-2.4); PHOSPHORUS LEVEL 4.9 MG/DL (2.5-4.9); POTASSIUM SERUM 4.6 MMOL/L (3.5-5.1); SODIUM LEVEL 139 MMOL/L (136-145)
[2023-01-01] MEDS: ADVAIR HFA 230/21MCG INHALER INH SCH ×2 (08:01→20:40)
[2023-01-01] MEDS: ROSUVASTATIN 10 MG TAB (CRESTOR) PO SCH (08:44)
[2023-01-01] MEDS: ENOXAPARIN 40MG/0.4ML SYRINGE (J1650 PER 10MG) SC SCH ×2 (08:45→20:53)
[2023-01-01] MEDS: NICOTINE 21MG/24HR 1 EA TRANSDERMAL TD SCH (08:45)
[2023-01-01] MEDS: OMEPRAZOLE 20MG CAP PO SCH (08:45)
[2023-01-01] MEDS: FUROSEMIDE 20 MG TAB PO SCH (08:45)
[2023-01-01] MEDS: oxyCODONE 15MG CR TAB PO SCH ×2 (08:46→20:53)
[2023-01-01] MEDS: DOCUSATE SODIUM 100MG CAPSULE PO SCH ×2 (08:46→20:52)
[2023-01-01] MEDS: MIRALAX *UNIT DOSE* 17GM PACKET PO SCH (08:46)
[2023-01-01] MEDS: predniSONE 20 MG TAB PO SCH (08:46)
[2023-01-01] MEDS: ESCITALOPRAM OXALATE 5MG TABLET (LEXAPRO) PO SCH (08:57)
[2023-01-01] MEDS: oxyCODONE 5MG TAB PO PRN ×2 (11:09→22:17)
[2023-01-01 14:00] VITALS: BP 146/83
[2023-01-01] MEDS ORDERED: oxyCODONE 10 MG CR TAB PO ONE (15:45)
[2023-01-01 21:15] VITALS: BP 138/84
[2023-01-02] MEDS ORDERED: oxyCODONE 5MG TAB PO ONE
[2023-01-02] MEDS: IPRATROPIUM 0.5MG/ALBUTEROL 2.5MG INH SOL UD 3ML (DUONEB) NEB SCH ×6 (04:36→23:50)
[2023-01-02] MEDS: oxyCODONE 5MG TAB PO PRN ×3 (04:52→22:39)
[2023-01-02 05:40] VITALS: BP 134/84
[2023-01-02] MEDS: ADVAIR HFA 230/21MCG INHALER INH SCH ×2 (07:41→20:22)
[2023-01-02] MEDS: DOCUSATE SODIUM 100MG CAPSULE PO SCH ×2 (09:27→20:09)
[2023-01-02] MEDS: FUROSEMIDE 20 MG TAB PO SCH (09:28)
[2023-01-02] MEDS: ROSUVASTATIN 10 MG TAB (CRESTOR) PO SCH (09:28)
[2023-01-02] MEDS: OMEPRAZOLE 20MG CAP PO SCH (09:28)
[2023-01-02] MEDS: NICOTINE 21MG/24HR 1 EA TRANSDERMAL TD SCH (09:29)
[2023-01-02] MEDS: MIRALAX *UNIT DOSE* 17GM PACKET PO SCH (09:29)
[2023-01-02] MEDS: predniSONE 20 MG TAB PO SCH (09:29)
[2023-01-02] MEDS: ENOXAPARIN 40MG/0.4ML SYRINGE (J1650 PER 10MG) SC SCH ×2 (09:29→20:10)
[2023-01-02] MEDS: ESCITALOPRAM OXALATE 5MG TABLET (LEXAPRO) PO SCH (09:30)
[2023-01-02] MEDS: oxyCODONE 15MG CR TAB PO SCH ×2 (11:47→20:09)
[2023-01-02 14:00] VITALS: BP 138/77
[2023-01-03] MEDS: IPRATROPIUM 0.5MG/ALBUTEROL 2.5MG INH SOL UD 3ML (DUONEB) NEB SCH ×6 (03:33→23:19)
[2023-01-03] MEDS ORDERED: oxyCODONE 5MG TAB PO ONE (04:00)
[2023-01-03 06:00] VITALS: BP 128/75
[2023-01-03] MEDS: oxyCODONE 5MG TAB PO PRN ×3 (07:41→19:36)
[2023-01-03] MEDS: ADVAIR HFA 230/21MCG INHALER INH SCH ×2 (07:47→20:08)
[2023-01-03 07:53] VITALS: BP 142/84
[2023-01-03] MEDS: MIRALAX *UNIT DOSE* 17GM PACKET PO SCH (08:59)
[2023-01-03] MEDS: ENOXAPARIN 40MG/0.4ML SYRINGE (J1650 PER 10MG) SC SCH ×2 (09:00→19:35)
[2023-01-03] MEDS: OMEPRAZOLE 20MG CAP PO SCH (09:03)
[2023-01-03] MEDS: FUROSEMIDE 20 MG TAB PO SCH (09:03)
[2023-01-03] MEDS: ESCITALOPRAM OXALATE 5MG TABLET (LEXAPRO) PO SCH (09:04)
[2023-01-03] MEDS: DOCUSATE SODIUM 100MG CAPSULE PO SCH ×2 (09:06→19:35)
[2023-01-03] MEDS: oxyCODONE 15MG CR TAB PO SCH (09:06)
[2023-01-03] MEDS: predniSONE 20 MG TAB PO SCH (09:07)
[2023-01-03] MEDS: ROSUVASTATIN 10 MG TAB (CRESTOR) PO SCH (09:09)
[2023-01-03] MEDS: NICOTINE 21MG/24HR 1 EA TRANSDERMAL TD SCH (09:10)
[2023-01-03] MEDS: BENZONATATE 100MG CAPSULE PO PRN ×2 (09:56→18:00)
[2023-01-03] MEDS ORDERED: ISOVUE-370 76% 100ML VIAL As Ordered ONE (13:15)
[2023-01-03 14:20] VITALS: BP 142/90
[2023-01-03] MEDS ORDERED: BISACODYL 10MG SUPP PR ONE (15:20)
[2023-01-03] MEDS ORDERED: LACTULOSE 20GM/30ML SYRUP UDC PO ONE (15:20)
[2023-01-03] MEDS: ACETAMINOPHEN TAB 650MG DOSE (2X325MG) PO PRN (18:00)
[2023-01-03] MEDS: oxyCODONE 20MG CR TAB PO SCH (19:36)
[2023-01-03 20:00] VITALS: BP 139/83
[2023-01-04] MEDS: oxyCODONE 5MG TAB PO PRN ×3 (01:32→17:49)
[2023-01-04] MEDS: IPRATROPIUM 0.5MG/ALBUTEROL 2.5MG INH SOL UD 3ML (DUONEB) NEB SCH ×6 (03:07→23:35)
[2023-01-04 06:00] VITALS: BP 136/77
[2023-01-04] MEDS: ADVAIR HFA 230/21MCG INHALER INH SCH ×2 (07:56→19:46)
[2023-01-04] MEDS: ENOXAPARIN 40MG/0.4ML SYRINGE (J1650 PER 10MG) SC SCH ×2 (08:34→20:03)
[2023-01-04] MEDS: ROSUVASTATIN 10 MG TAB (CRESTOR) PO SCH (08:34)
[2023-01-04] MEDS: oxyCODONE 15MG CR TAB PO SCH (08:35)
[2023-01-04] MEDS: OMEPRAZOLE 20MG CAP PO SCH (08:35)
[2023-01-04] MEDS: NICOTINE 21MG/24HR 1 EA TRANSDERMAL TD SCH (08:35)
[2023-01-04] MEDS: FUROSEMIDE 20 MG TAB PO SCH (08:36)
[2023-01-04] MEDS: predniSONE 20 MG TAB PO SCH (08:36)
[2023-01-04] MEDS: ACETAMINOPHEN TAB 650MG DOSE (2X325MG) PO PRN (08:36)
[2023-01-04] MEDS: ESCITALOPRAM OXALATE 5MG TABLET (LEXAPRO) PO SCH (08:36)
[2023-01-04] MEDS: DOCUSATE SODIUM 100MG CAPSULE PO SCH ×2 (08:37→20:03)
[2023-01-04] MEDS: MIRALAX *UNIT DOSE* 17GM PACKET PO SCH (08:37)
[2023-01-04 13:59] VITALS: BP 123/70
[2023-01-04] MEDS: oxyCODONE 20MG CR TAB PO SCH (20:03)
[2023-01-04] MEDS: BENZONATATE 100MG CAPSULE PO PRN (20:03)
[2023-01-04 20:30] VITALS: BP 125/71
[2023-01-05] MEDS: oxyCODONE 5MG TAB PO PRN ×4 (01:07→23:26)
[2023-01-05] MEDS: IPRATROPIUM 0.5MG/ALBUTEROL 2.5MG INH SOL UD 3ML (DUONEB) NEB SCH ×6 (04:14→23:34)
[2023-01-05 05:10] VITALS: BP 121/67
[2023-01-05] MEDS: ADVAIR HFA 230/21MCG INHALER INH SCH ×2 (07:23→19:42)
[2023-01-05] MEDS: MIRALAX *UNIT DOSE* 17GM PACKET PO SCH (08:07)
[2023-01-05] MEDS: oxyCODONE 15MG CR TAB PO SCH (08:08)
[2023-01-05] MEDS: FUROSEMIDE 20 MG TAB PO SCH (08:08)
[2023-01-05] MEDS: OMEPRAZOLE 20MG CAP PO SCH (08:08)
[2023-01-05] MEDS: ROSUVASTATIN 10 MG TAB (CRESTOR) PO SCH (08:08)
[2023-01-05] MEDS: ESCITALOPRAM OXALATE 5MG TABLET (LEXAPRO) PO SCH (08:08)
[2023-01-05] MEDS: NICOTINE 21MG/24HR 1 EA TRANSDERMAL TD SCH (08:08)
[2023-01-05] MEDS: DOCUSATE SODIUM 100MG CAPSULE PO SCH ×2 (08:09→21:05)
[2023-01-05] MEDS: predniSONE 20 MG TAB PO SCH (08:09)
[2023-01-05] MEDS: ENOXAPARIN 40MG/0.4ML SYRINGE (J1650 PER 10MG) SC SCH ×2 (08:09→21:04)
[2023-01-05 14:00] VITALS: BP 135/70
[2023-01-05 20:53] VITALS: BP 146/78
[2023-01-05] MEDS: oxyCODONE 20MG CR TAB PO SCH (21:05)
[2023-01-06] MEDS ORDERED: oxyCODONE 5MG TAB PO ONE (03:30)
[2023-01-06] MEDS: IPRATROPIUM 0.5MG/ALBUTEROL 2.5MG INH SOL UD 3ML (DUONEB) NEB SCH ×6 (04:00→23:17)
[2023-01-06 06:00] VITALS: BP 128/75
[2023-01-06] MEDS: ADVAIR HFA 230/21MCG INHALER INH SCH ×2 (07:28→19:38)
[2023-01-06 07:46] VITALS: BP 129/80
[2023-01-06] MEDS: MIRALAX *UNIT DOSE* 17GM PACKET PO SCH (09:48)
[2023-01-06] MEDS: NICOTINE 21MG/24HR 1 EA TRANSDERMAL TD SCH (09:48)
[2023-01-06] MEDS: DOCUSATE SODIUM 100MG CAPSULE PO SCH ×2 (09:49→20:37)
[2023-01-06] MEDS: ENOXAPARIN 40MG/0.4ML SYRINGE (J1650 PER 10MG) SC SCH ×2 (09:49→20:37)
[2023-01-06] MEDS: FUROSEMIDE 20 MG TAB PO SCH (09:49)
[2023-01-06] MEDS: ESCITALOPRAM OXALATE 5MG TABLET (LEXAPRO) PO SCH (09:49)
[2023-01-06] MEDS: OMEPRAZOLE 20MG CAP PO SCH (09:49)
[2023-01-06] MEDS: ROSUVASTATIN 10 MG TAB (CRESTOR) PO SCH (09:49)
[2023-01-06] MEDS: oxyCODONE 15MG CR TAB PO SCH ×2 (14:01→14:50)
[2023-01-06] MEDS: BENZONATATE 100MG CAPSULE PO PRN (15:24)
[2023-01-06] MEDS: oxyCODONE 20MG CR TAB PO SCH (20:38)
[2023-01-06] MEDS: oxyCODONE 5MG TAB PO PRN (23:58)
[2023-01-07 06:00] VITALS: BP 117/70
[2023-01-07] MEDS: oxyCODONE 5MG TAB PO PRN ×3 (06:26→18:45)
[2023-01-07] MEDS: CEPACOL LOZENGE PO PRN (06:29)
[2023-01-07] MEDS: IPRATROPIUM 0.5MG/ALBUTEROL 2.5MG INH SOL UD 3ML (DUONEB) NEB SCH (08:00)
[2023-01-07] MEDS: ADVAIR HFA 230/21MCG INHALER INH SCH ×2 (08:05→20:41)
[2023-01-07] MEDS: MIRALAX *UNIT DOSE* 17GM PACKET PO SCH (08:28)
[2023-01-07] MEDS: NICOTINE 21MG/24HR 1 EA TRANSDERMAL TD SCH (08:29)
[2023-01-07] MEDS: ENOXAPARIN 40MG/0.4ML SYRINGE (J1650 PER 10MG) SC SCH (08:29)
[2023-01-07] MEDS: OMEPRAZOLE 20MG CAP PO SCH (08:30)
[2023-01-07] MEDS: ROSUVASTATIN 10 MG TAB (CRESTOR) PO SCH (08:30)
[2023-01-07] MEDS: ESCITALOPRAM OXALATE 5MG TABLET (LEXAPRO) PO SCH (08:30)
[2023-01-07] MEDS: oxyCODONE 15MG CR TAB PO SCH (08:31)
[2023-01-07] MEDS: DOCUSATE SODIUM 100MG CAPSULE PO SCH ×2 (08:33→19:48)
[2023-01-07] MEDS: FUROSEMIDE 20 MG TAB PO SCH (08:34)
[2023-01-07] MEDS ORDERED: APIXABAN 5 MG TAB (ELIQUIS) PO SCH (09:00)
[2023-01-07] MEDS: TIOTROPIUM INHALER/CAPSULE (SPIRIVA) INH SCH (11:54)
[2023-01-07 12:00] VITALS: BP 124/78
[2023-01-07] MEDS: ACETAMINOPHEN TAB 650MG DOSE (2X325MG) PO PRN (15:14)
[2023-01-07] MEDS: APIXABAN 5 MG TAB (ELIQUIS) PO SCH (17:27)
[2023-01-07] MEDS: oxyCODONE 20MG CR TAB PO SCH (22:28)
[2023-01-08] MEDS: CEPACOL LOZENGE PO PRN ×3 (01:21→11:43)
[2023-01-08] MEDS: oxyCODONE 5MG TAB PO PRN ×2 (01:21→13:49)
[2023-01-08] MEDS: BENZONATATE 100MG CAPSULE PO PRN (01:21)
[2023-01-08 06:00] VITALS: BP 124/76
[2023-01-08 06:04] LABS: BASO % 0.8 % (0.0-1.0); EOS # 0.2 10^3/uL (0.0-0.5); HEMATOCRIT 34.7 % (36.0-47.0); HEMOGLOBIN 10.7 g/dl (12.0-15.5); LYMPH # 1.1 10^3/uL (1.5-5.0); LYMPH % 26.7 % (24.0-44.0); MEAN CORPUSCULAR HEMOGLOBIN 30.8 pg (27.0-33.0); MEAN CORPUSCULAR HGB CONC 30.8 g/dl (32.0-36.5); MONO # 0.6 10^3/uL (0.0-0.8); MONO % 16.1 % (2.0-8.0); NEUTROPHILS % 50.1 % (36.0-66.0); PLATELET COUNT, AUTOMATED 222 10^3/uL (150-450); RED BLOOD COUNT 3.47 10^6/uL (4.00-5.40)
[2023-01-08] MEDS: APIXABAN 5 MG TAB (ELIQUIS) PO SCH ×2 (06:29→17:42)
[2023-01-08] MEDS: TIOTROPIUM INHALER/CAPSULE (SPIRIVA) INH SCH (07:35)
[2023-01-08] MEDS: ADVAIR HFA 230/21MCG INHALER INH SCH ×2 (07:36→20:48)
[2023-01-08 08:00] VITALS: BP 138/88
[2023-01-08] MEDS: MIRALAX *UNIT DOSE* 17GM PACKET PO SCH (09:45)
[2023-01-08] MEDS: NICOTINE 21MG/24HR 1 EA TRANSDERMAL TD SCH ×2 (09:46→09:47)
[2023-01-08] MEDS: ESCITALOPRAM OXALATE 5MG TABLET (LEXAPRO) PO SCH (09:46)
[2023-01-08] MEDS: OMEPRAZOLE 20MG CAP PO SCH (09:46)
[2023-01-08] MEDS: ROSUVASTATIN 10 MG TAB (CRESTOR) PO SCH (09:46)
[2023-01-08] MEDS: DOCUSATE SODIUM 100MG CAPSULE PO SCH ×2 (09:47→21:29)
[2023-01-08] MEDS: FUROSEMIDE 20 MG TAB PO SCH (09:47)
[2023-01-08] MEDS: oxyCODONE 15MG CR TAB PO SCH (09:58)
[2023-01-08] MEDS: oxyCODONE 20MG CR TAB PO SCH (21:32)
[2023-01-09] MEDS: oxyCODONE 5MG TAB PO PRN ×2 (03:41→15:02)
[2023-01-09 06:00] VITALS: BP 117/73
[2023-01-09] MEDS: APIXABAN 5 MG TAB (ELIQUIS) PO SCH ×2 (06:09→17:19)
[2023-01-09] MEDS: ADVAIR HFA 230/21MCG INHALER INH SCH ×2 (07:33→19:13)
[2023-01-09] MEDS: TIOTROPIUM INHALER/CAPSULE (SPIRIVA) INH SCH (07:33)
[2023-01-09] MEDS: MIRALAX *UNIT DOSE* 17GM PACKET PO SCH (09:13)
[2023-01-09] MEDS: DOCUSATE SODIUM 100MG CAPSULE PO SCH ×2 (09:14→20:20)
[2023-01-09] MEDS: ROSUVASTATIN 10 MG TAB (CRESTOR) PO SCH (09:14)
[2023-01-09] MEDS: OMEPRAZOLE 20MG CAP PO SCH (09:14)
[2023-01-09] MEDS: oxyCODONE 15MG CR TAB PO SCH (09:14)
[2023-01-09] MEDS: FUROSEMIDE 20 MG TAB PO SCH (09:17)
[2023-01-09] MEDS: ESCITALOPRAM OXALATE 5MG TABLET (LEXAPRO) PO SCH (09:19)
[2023-01-09] MEDS: buPROPion 75 MG TAB PO SCH (15:01)
[2023-01-09] MEDS: oxyCODONE 20MG CR TAB PO SCH (20:20)
[2023-01-10] MEDS: oxyCODONE 5MG TAB PO PRN ×2 (02:42→16:58)
[2023-01-10] MEDS: APIXABAN 5 MG TAB (ELIQUIS) PO SCH ×2 (05:49→16:58)
[2023-01-10] MEDS: ACETAMINOPHEN TAB 650MG DOSE (2X325MG) PO PRN (05:54)
[2023-01-10 06:00] VITALS: BP 123/65
[2023-01-10] MEDS: ADVAIR HFA 230/21MCG INHALER INH SCH ×2 (07:35→19:54)
[2023-01-10] MEDS: TIOTROPIUM INHALER/CAPSULE (SPIRIVA) INH SCH (07:35)
[2023-01-10] MEDS: MIRALAX *UNIT DOSE* 17GM PACKET PO SCH (09:43)
[2023-01-10] MEDS: ESCITALOPRAM OXALATE 5MG TABLET (LEXAPRO) PO SCH (09:44)
[2023-01-10] MEDS: OMEPRAZOLE 20MG CAP PO SCH (09:44)
[2023-01-10] MEDS: ROSUVASTATIN 10 MG TAB (CRESTOR) PO SCH (09:44)
[2023-01-10] MEDS: DOCUSATE SODIUM 100MG CAPSULE PO SCH ×2 (09:44→20:51)
[2023-01-10] MEDS: buPROPion 75 MG TAB PO SCH (09:44)
[2023-01-10] MEDS: NICOTINE 21MG/24HR 1 EA TRANSDERMAL TD SCH (09:44)
[2023-01-10] MEDS: oxyCODONE 15MG CR TAB PO SCH (09:44)
[2023-01-10] MEDS: FUROSEMIDE 20 MG TAB PO SCH (09:45)
[2023-01-10] MEDS: oxyCODONE 20MG CR TAB PO SCH (20:51)
[2023-01-11] MEDS: oxyCODONE 5MG TAB PO PRN ×2 (02:39→12:56)
[2023-01-11] MEDS: APIXABAN 5 MG TAB (ELIQUIS) PO SCH (05:55)
[2023-01-11 06:00] VITALS: BP 131/61
[2023-01-11] MEDS: ADVAIR HFA 230/21MCG INHALER INH SCH (08:06)
[2023-01-11] MEDS: TIOTROPIUM INHALER/CAPSULE (SPIRIVA) INH SCH (08:06)
[2023-01-11] MEDS ORDERED: OXYC-517 PO (08:26)
[2023-01-11] MEDS ORDERED: TREL1AER PO (08:26)
[2023-01-11] MEDS ORDERED: AMLO1TAB25 PO (08:26)
[2023-01-11] MEDS ORDERED: OXYC15TA66 PO (08:26)
[2023-01-11] MEDS ORDERED: CRES10TA PO (08:26)
[2023-01-11] MEDS ORDERED: OXYC20TA40 PO (08:26)
[2023-01-11] MEDS ORDERED: BUPR75TA5 PO (08:26)
[2023-01-11] MEDS ORDERED: OMEP-173 PO (08:26)
[2023-01-11] MEDS ORDERED: FURO20TA2 PO (08:26)
[2023-01-11] MEDS ORDERED: NICO21PAT TD (08:26)
[2023-01-11] MEDS ORDERED: ELIQ5TAB PO (08:26)
[2023-01-11] MEDS ORDERED: ALBU6.7H6 INH (08:28)
[2023-01-11] MEDS ORDERED: POTA-151 PO (08:29)
[2023-01-11] MEDS: DOCUSATE SODIUM 100MG CAPSULE PO SCH (09:15)
[2023-01-11] MEDS: oxyCODONE 15MG CR TAB PO SCH (09:15)
[2023-01-11] MEDS: buPROPion 75 MG TAB PO SCH (09:15)
[2023-01-11] MEDS: ROSUVASTATIN 10 MG TAB (CRESTOR) PO SCH (09:16)
[2023-01-11] MEDS: OMEPRAZOLE 20MG CAP PO SCH (09:16)
[2023-01-11] MEDS: ESCITALOPRAM OXALATE 5MG TABLET (LEXAPRO) PO SCH (09:16)
[2023-01-11] MEDS: MIRALAX *UNIT DOSE* 17GM PACKET PO SCH (09:17)
[2023-01-11] MEDS: NICOTINE 21MG/24HR 1 EA TRANSDERMAL TD SCH (09:17)
[2023-01-11] MEDS: FUROSEMIDE 20 MG TAB PO SCH (09:18)
[2023-01-11 09:19] VITALS: BP 129/68
[2023-01-11] MEDS ORDERED: BREO1INH PO (11:22)
[2023-01-11] MEDS ORDERED: MORP-69 PO (11:22)
[2023-01-11] MEDS: ACETAMINOPHEN TAB 650MG DOSE (2X325MG) PO PRN (14:34)
[2023-01-11] MEDS ORDERED: BENZ-18 PO (14:57)
== END 2023-01-11 16:37 | disposition home or self-care (01) | DRG 140 ==
LOC: M ED 16:06 → M ED INP 16:07 → OBSVTOIN 18:03 → EEVIPCON 18:03 → M MSPAV 23:50
PROVIDERS: ADMIT Internal Medicine; ATTEND Internal Medicine
PROC: B246ZZZ Ultrasonography of Right and Left Heart (ICD-10-PCS; principal; 2022-12-22)
DX: J44.0 Chronic obstructive pulmonary disease with (acute) lower respiratory infection (principal); I27.20 Pulmonary hypertension, unspecified; E87.20 Acidosis, unspecified; I24.9 Acute ischemic heart disease, unspecified; D68.2 Hereditary deficiency of other clotting factors; Z68.41 Body mass index [BMI] 40.0-44.9, adult; F17.210 Nicotine dependence, cigarettes, uncomplicated; J20.9 Acute bronchitis, unspecified; T45.516A Underdosing of anticoagulants, initial encounter; I10 Essential (primary) hypertension; M85.88 Other specified disorders of bone density and structure, other site; K86.9 Disease of pancreas, unspecified; G43.109 Migraine with aura, not intractable, without status migrainosus; E66.9 Obesity, unspecified; S20.213A Contusion of bilateral front wall of thorax, initial encounter; Y04.8XXA Assault by other bodily force, initial encounter; Y07.03 Male partner, perpetrator of maltreatment and neglect; Y92.9 Unspecified place or not applicable; Y93.9 Activity, unspecified; I16.1 Hypertensive emergency; F32.A Depression, unspecified; F41.9 Anxiety disorder, unspecified; Z86.718 Personal history of other venous thrombosis and embolism; Z63.4 Disappearance and death of family member; Z91.128 Patient's intentional underdosing of medication regimen for other reason; Z95.828 Presence of other vascular implants and grafts; Z98.84 Bariatric surgery status; Z86.711 Personal history of pulmonary embolism; Z79.899 Other long term (current) drug therapy; Z88.0 Allergy status to penicillin; Z88.8 Allergy status to other drugs, medicaments and biological substances

== ENCOUNTER 2023-02-02 18:32 | Inpatient (IN) | payer MEDICAID, OTHER ==
[~2023-02-02] VITALS: Ht 167.6 cm; Wt 127.7 kg
[~2023-02-02 18:32] MED LIST changes: +AMLO1TAB25 PO; +BREO1INH PO; +BUPR75TA5 PO; +CRES10TA PO; +ELIQ5TAB PO; +FURO20TA2 PO; +MORP-69 PO; +NICO21PAT TD; +OMEP-173 PO; +OXYC-517 PO; +OXYC15TA66 PO; +OXYC20TA40 PO; +POTA-151 PO; +TREL1AER PO
[2023-02-02 19:41] LABS: BASO % 0.2 % (0.0-1.0); EOS % 0.2 % (0.0-3.0); HEMATOCRIT 37.7 % (36.0-47.0); HEMOGLOBIN 12.4 g/dl (12.0-15.5); LYMPH # 0.6 10^3/uL (1.5-5.0); LYMPH % 9.5 % (24.0-44.0); MEAN CORPUSCULAR HEMOGLOBIN 31.2 pg (27.0-33.0); MEAN CORPUSCULAR HGB CONC 32.9 g/dl (32.0-36.5); MEAN CORPUSCULAR VOLUME 94.7 fl (80.0-96.0); MONO # 0.6 10^3/uL (0.0-0.8); MONO % 8.3 % (2.0-8.0); NEUTROPHILS # 5.4 10^3/uL (1.5-8.5); NEUTROPHILS % 81.3 % (36.0-66.0); PLATELET COUNT, AUTOMATED 205 10^3/uL (150-450); RED BLOOD COUNT 3.98 10^6/uL (4.00-5.40); WHITE BLOOD COUNT 6.6 10^3/uL (4.0-10.0)
[2023-02-02 19:52] LABS: INR 1.27; PROTHROMBIN TIME 16.2 SECONDS (12.5-14.5)
[2023-02-02 19:54] LABS: D-DIMER QUANT 792.59 ng/ml (<500)
[2023-02-02 20:05] LABS: CK-MB VALUE MASS < 1.0 NG/ML (<3.6)
[2023-02-02] MEDS ORDERED: ONDANSETRON 4MG 2ML VIAL IV ONE (20:05)
[2023-02-02] MEDS ORDERED: ACETAMINOPHEN TAB 650MG DOSE (2X325MG) PO ONE (20:05)
[2023-02-02 20:07] LABS: ALBUMIN 3.4 G/DL (3.2-5.2); ALKALINE PHOSPHATASE 115 U/L (46-116); ALT/SGPT 14 U/L (7.0-40); AST/SGOT 20 U/L (<34); BILIRUBIN,DIRECT 0.3 MG/DL (<0.4); BILIRUBIN,TOTAL 0.8 MG/DL (0.3-1.2); BLOOD UREA NITROGEN 9 MG/DL (9-23); CARBON DIOXIDE LEVEL 23 MMOL/L (20-31); CHLORIDE LEVEL 104 MMOL/L (98-107); CPK CREATINE PHOSPHOKINASE 41 U/L (34-145); CREATININE FOR GFR 0.63 MG/DL (0.55-1.30); GLOMERULAR FILTRATION RATE > 60.0 (>51); GLUCOSE, FASTING 108 MG/DL (60-100); MB/CK RELATIVE INDEX 2.43 (< OR =4); POTASSIUM SERUM 3.5 MMOL/L (3.5-5.1); SODIUM LEVEL 136 MMOL/L (136-145); TOTAL PROTEIN 6.5 G/DL (5.7-8.2)
[2023-02-02 20:22] LABS: LIPASE 72 U/L (12-53)
[2023-02-02] MEDS: MORPHINE 4 MG/ML 1ML VIAL IV PRN (20:41)
[2023-02-02] MEDS ORDERED: ISOVUE-370 76% 100ML VIAL As Ordered ONE (20:42)
[2023-02-02] MEDS: GASTROGRAFIN SOLUTION 30ML PO SCH ×2 (21:26→22:00)
[2023-02-02 22:18] LABS: CK-MB VALUE MASS < 1.0 NG/ML (<3.6); CPK CREATINE PHOSPHOKINASE 47 U/L (34-145); MB/CK RELATIVE INDEX 2.12 (< OR =4)
[2023-02-03] MEDS: MORPHINE 4 MG/ML 1ML VIAL IV PRN (00:20)
[2023-02-03] MEDS ORDERED: GI COCKTAIL 50ML BTL(HYOSCYAMINE/MAALOX/LIDOCAINE VISCOUS)(1:3:1) PO ONE (00:50)
[2023-02-03] MEDS: HYDROMORPHONE HCL 0.5 MG/ 0.5 ML SYRINGE IV PRN ×6 (04:52→23:30)
[2023-02-03] MEDS ORDERED: ALBUTEROL SULFATE 2.5MG/0.5ML INH NEB SOLN NEB PRN (06:05)
[2023-02-03] MEDS ORDERED: NS 1,000 ML IV ONE (06:05)
[2023-02-03] MEDS ORDERED: BENZ-18 PO (06:39)
[2023-02-03] MEDS ORDERED: OMEP1CAP73 PO (06:39)
[2023-02-03] MEDS ORDERED: AMLO1TAB25 PO (06:39)
[2023-02-03] MEDS ORDERED: FURO20TA2 PO (06:39)
[2023-02-03] MEDS ORDERED: NICO21DI9 TD (06:39)
[2023-02-03] MEDS ORDERED: ELIQ5TAB PO (06:39)
[2023-02-03] MEDS ORDERED: ROSU20TA5 PO (06:39)
[2023-02-03] MEDS ORDERED: BUPR75TA5 PO (06:39)
[2023-02-03] MEDS ORDERED: ALBU8.5H INH (06:39)
[2023-02-03] MEDS ORDERED: POTA1TAB14 PO (06:39)
[2023-02-03] MEDS ORDERED: BREO1INH INH (06:39)
[2023-02-03] MEDS ORDERED: HOME MED LIST COMPLETE! XX SCH (06:40)
[2023-02-03 07:16] LABS: HEMATOCRIT 40.9 % (36.0-47.0); HEMOGLOBIN 13.3 g/dl (12.0-15.5)
[2023-02-03] MEDS: LR 1,000 ML IV SCH ×2 (07:58→15:38)
[2023-02-03] MEDS: PANTOPRAZOLE 40MG VIAL IV SCH ×2 (07:58→20:02)
[2023-02-03] MEDS: IPRATROPIUM 0.5MG/ALBUTEROL 2.5MG INH SOL UD 3ML (DUONEB) NEB SCH ×3 (08:44→21:28)
[2023-02-03 11:54] VITALS: BP 114/78
[2023-02-03 14:17] LABS: HEMATOCRIT 39.2 % (36.0-47.0); HEMOGLOBIN 12.5 g/dl (12.0-15.5)
[2023-02-03] MEDS: LevoFLOXacin IV 500 MG in IV 1 EA IV SCH (17:17)
[2023-02-03 20:00] VITALS: BP 117/71
[2023-02-03 22:40] LABS: HEMATOCRIT 36.2 % (36.0-47.0); HEMOGLOBIN 11.6 g/dl (12.0-15.5)
[2023-02-04] MEDS: LR 1,000 ML IV SCH ×2 (00:48→07:59)
[2023-02-04] MEDS: IPRATROPIUM 0.5MG/ALBUTEROL 2.5MG INH SOL UD 3ML (DUONEB) NEB SCH ×2 (02:00→08:07)
[2023-02-04] MEDS: HYDROMORPHONE HCL 0.5 MG/ 0.5 ML SYRINGE IV PRN ×6 (03:09→22:26)
[2023-02-04 06:00] VITALS: BP 113/74
[2023-02-04 06:52] LABS: BLOOD UREA NITROGEN 17 MG/DL (9-23); CALCIUM LEVEL 8.1 MG/DL (8.5-10.1); CARBON DIOXIDE LEVEL 27 MMOL/L (20-31); CHLORIDE LEVEL 105 MMOL/L (98-107); CREATININE FOR GFR 0.75 MG/DL (0.55-1.30); GLOMERULAR FILTRATION RATE > 60.0 (>51); GLUCOSE, FASTING 94 MG/DL (60-100); POTASSIUM SERUM 3.7 MMOL/L (3.5-5.1); SODIUM LEVEL 140 MMOL/L (136-145)
[2023-02-04 07:21] VITALS: BP 104/64
[2023-02-04] MEDS ORDERED: NS 500 ML IV ONE (07:30)
[2023-02-04] MEDS ORDERED: SUCRALFATE SUSP 1GM/10ML UD PO ONE (07:30)
[2023-02-04] MEDS ORDERED: MORPHINE 2 MG/ML 1ML VIAL IV ONE (07:30)
[2023-02-04] MEDS ORDERED: ACETAMINOPHEN 500 MG TAB PO ONE (07:30)
[2023-02-04] MEDS: PANTOPRAZOLE 40MG VIAL IV SCH (07:44)
[2023-02-04 08:07] VITALS: O2SAT 91
[2023-02-04 08:17] LABS: CK-MB VALUE MASS < 1.0 NG/ML (<3.6)
[2023-02-04 08:18] LABS: CPK CREATINE PHOSPHOKINASE 31 U/L (34-145); MB/CK RELATIVE INDEX 3.22 (< OR =4)
[2023-02-04] MEDS ORDERED: GI COCKTAIL 50ML BTL(HYOSCYAMINE/MAALOX/LIDOCAINE VISCOUS)(1:3:1) PO ONE ×2 (09:00→14:00)
[2023-02-04] MEDS ORDERED: NICOTINE 21MG/24HR 1 EA TRANSDERMAL TD SCH (09:00)
[2023-02-04] MEDS ORDERED: E-Z-PAQUE 96% w/w SUSP 176GM BTL As Ordered ONE (10:12)
[2023-02-04] MEDS ORDERED: LORazepam 2 MG/ML 1ML VIAL IV STA (10:21)
[2023-02-04] MEDS ORDERED: BENZONATATE 100MG CAPSULE PO PRN (12:15)
[2023-02-04] MEDS: IPRATROPIUM 0.02% SOLN 0.5MG 2.5ML NEB INH SCH ×4 (12:24→23:10)
[2023-02-04] MEDS: LEVALBUTEROL 1.25MG 0.5ML CONCENTRATE NEB INH SCH ×4 (12:25→23:10)
[2023-02-04] MEDS ORDERED: FUROSEMIDE 40MG/4ML VIAL IV ONE (12:30)
[2023-02-04] MEDS ORDERED: POLYETHYLENE GLYCOL (MIRALAX) 238GM BOTTLE PO ONE (13:00)
[2023-02-04] MEDS: MIDODRINE 5 MG TAB PO SCH ×2 (13:38→17:26)
[2023-02-04] MEDS: POTASSIUM CHLORIDE 10MEQ SR TABLET PO SCH (13:38)
[2023-02-04] MEDS: ROSUVASTATIN 10 MG TAB (CRESTOR) PO SCH (13:39)
[2023-02-04] MEDS: SUCRALFATE SUSP 1GM/10ML UD PO SCH ×3 (13:39→21:02)
[2023-02-04 13:40] VITALS: BP 125/69
[2023-02-04] MEDS ORDERED: buPROPion 75 MG TAB PO ONE (14:00)
[2023-02-04] MEDS: LevoFLOXacin IV 500 MG in IV 1 EA IV SCH (17:26)
[2023-02-04] MEDS: ALPRAZolam 0.5 MG TAB PO PRN (17:32)
[2023-02-04 20:00] VITALS: BP 123/84
[2023-02-04] MEDS ORDERED: GI COCKTAIL 50ML BTL(HYOSCYAMINE/MAALOX/LIDOCAINE VISCOUS)(1:3:1) PO PRN (20:00)
[2023-02-04] MEDS: PANTOPRAZOLE 40MG TAB (PROTONIX) PO SCH (21:02)
[2023-02-05 01:41] VITALS: BP 118/69
[2023-02-05] MEDS: HYDROMORPHONE HCL 0.5 MG/ 0.5 ML SYRINGE IV PRN ×7 (01:41→23:47)
[2023-02-05] MEDS: LEVALBUTEROL 1.25MG 0.5ML CONCENTRATE NEB INH SCH ×6 (03:36→23:08)
[2023-02-05] MEDS: IPRATROPIUM 0.02% SOLN 0.5MG 2.5ML NEB INH SCH ×6 (03:36→23:08)
[2023-02-05 06:12] VITALS: BP 128/68
[2023-02-05] MEDS: SUCRALFATE SUSP 1GM/10ML UD PO SCH ×4 (07:30→20:20)
[2023-02-05 07:39] VITALS: O2SAT 94
[2023-02-05] MEDS ORDERED: E-Z-HD 98% w/w 340GM SUSP BTL As Ordered ONE (08:04)
[2023-02-05] MEDS ORDERED: E-Z-PAQUE 96% w/w SUSP 176GM BTL As Ordered ONE (08:04)
[2023-02-05] MEDS ORDERED: E-Z-GAS II EFFERVESCENT PACKET (SODIUM BICARB./CITRIC ACID/SIMETHICONE) As Ordered ONE (08:04)
[2023-02-05] MEDS ORDERED: NICOTINE 21MG/24HR 1 EA TRANSDERMAL TD SCH (09:00)
[2023-02-05] MEDS: MIDODRINE 5 MG TAB PO SCH ×2 (10:38→12:00)
[2023-02-05] MEDS: ROSUVASTATIN 10 MG TAB (CRESTOR) PO SCH (10:45)
[2023-02-05] MEDS: PANTOPRAZOLE 40MG TAB (PROTONIX) PO SCH ×2 (10:46→20:21)
[2023-02-05] MEDS: POTASSIUM CHLORIDE 10MEQ SR TABLET PO SCH (10:46)
[2023-02-05] MEDS: buPROPion 75 MG TAB PO SCH (10:47)
[2023-02-05 12:02] VITALS: BP 153/92
[2023-02-05] MEDS ORDERED: MORPHINE 4 MG/ML 1ML VIAL IV PRN (12:30)
[2023-02-05 12:56] LABS: HEMOGLOBIN 11.5 g/dl (12.0-15.5); MEAN CORPUSCULAR HEMOGLOBIN 30.4 pg (27.0-33.0); MEAN CORPUSCULAR HGB CONC 31.1 g/dl (32.0-36.5); MEAN CORPUSCULAR VOLUME 97.9 fl (80.0-96.0); PLATELET COUNT, AUTOMATED 226 10^3/uL (150-450); RED BLOOD COUNT 3.78 10^6/uL (4.00-5.40); WHITE BLOOD COUNT 3.5 10^3/uL (4.0-10.0)
[2023-02-05] MEDS ORDERED: NITROGLYCERIN 2% OINT 1 GM *U/D* PKT TOP ONE (13:20)
[2023-02-05 13:21] LABS: CK-MB VALUE MASS < 1.0 NG/ML (<3.6)
[2023-02-05 13:23] LABS: CPK CREATINE PHOSPHOKINASE 26 U/L (34-145); MB/CK RELATIVE INDEX 3.84 (< OR =4)
[2023-02-05 13:26] LABS: ALBUMIN 3.4 G/DL (3.2-5.2); ALKALINE PHOSPHATASE 93 U/L (46-116); ALT/SGPT < 9 U/L (7.0-40); AST/SGOT 16 U/L (<34); BILIRUBIN,TOTAL 0.4 MG/DL (0.3-1.2); BLOOD UREA NITROGEN 6 MG/DL (9-23); CALCIUM LEVEL 8.4 MG/DL (8.5-10.1); CARBON DIOXIDE LEVEL 29 MMOL/L (20-31); CHLORIDE LEVEL 107 MMOL/L (98-107); CREATININE FOR GFR 0.71 MG/DL (0.55-1.30); GLOMERULAR FILTRATION RATE > 60.0 (>51); GLUCOSE, FASTING 89 MG/DL (60-100); POTASSIUM SERUM 3.4 MMOL/L (3.5-5.1); SODIUM LEVEL 139 MMOL/L (136-145); TOTAL PROTEIN 6.3 G/DL (5.7-8.2)
[2023-02-05 14:00] VITALS: BP 136/82
[2023-02-05] MEDS: FUROSEMIDE 40MG/4ML VIAL IV SCH ×2 (15:13→21:14)
[2023-02-05] MEDS ORDERED: POTASSIUM CHLORIDE 10MEQ SR TABLET PO ONE (15:20)
[2023-02-05] MEDS: LevoFLOXacin IV 500 MG in IV 1 EA IV SCH (17:11)
[2023-02-05 19:18] VITALS: BP 134/72
[2023-02-05] MEDS ORDERED: metOLazone 2.5 MG TAB PO ONE (20:30)
[2023-02-06 01:52] LABS: ERYTHROCYTE SEDIMENTATION RATE 22 mm/hr (0-30)
[2023-02-06] MEDS: FUROSEMIDE 40MG/4ML VIAL IV SCH ×2 (03:00→09:00)
[2023-02-06] MEDS: HYDROMORPHONE HCL 0.5 MG/ 0.5 ML SYRINGE IV PRN ×2 (03:42→08:07)
[2023-02-06] MEDS: LEVALBUTEROL 1.25MG 0.5ML CONCENTRATE NEB INH SCH ×3 (04:03→11:00)
[2023-02-06] MEDS: IPRATROPIUM 0.02% SOLN 0.5MG 2.5ML NEB INH SCH ×3 (04:03→11:00)
[2023-02-06 05:47] VITALS: BP 109/77
[2023-02-06] MEDS: SUCRALFATE SUSP 1GM/10ML UD PO SCH ×2 (07:30→12:38)
[2023-02-06 08:21] VITALS: O2SAT 94
[2023-02-06 09:00] VITALS: BP 123/90
[2023-02-06] MEDS ORDERED: POTASSIUM CHLORIDE 10MEQ SR TABLET PO SCH (09:00)
[2023-02-06] MEDS ORDERED: PANT40TA29 PO (10:06)
[2023-02-06] MEDS ORDERED: SUCR1ORA PO (10:06)
[2023-02-06] MEDS ORDERED: PERC5TAB12 PO (10:07)
[2023-02-06] MEDS ORDERED: fentaNYL 100 MCG/2 ML INJECTION As Ordered ONE (11:20)
[2023-02-06] MEDS ORDERED: propofoL 200 MG/20 ML VIAL As Ordered ONE (11:41)
[2023-02-06] MEDS ORDERED: LIDOCAINE 2% INJ 100 MG/5 ML SYRINGE As Ordered ONE (11:42)
[2023-02-06] MEDS: ALPRAZolam 0.5 MG TAB PO PRN (12:38)
[2023-02-06] MEDS: ROSUVASTATIN 10 MG TAB (CRESTOR) PO SCH (12:38)
[2023-02-06] MEDS: buPROPion 75 MG TAB PO SCH (12:38)
[2023-02-06] MEDS: PANTOPRAZOLE 40MG TAB (PROTONIX) PO SCH (12:38)
[2023-02-06 14:00] VITALS: BP 129/65
== END 2023-02-06 15:16 | disposition home or self-care (01) | DRG 247 ==
LOC: M ED 18:32 → M ED INP 02-03 06:03 → ENRESERV 02-03 08:50 → M MSPAV 02-03 12:19 → UNDODISIN 02-06 12:50
PROVIDERS: ADMIT Internal Medicine; ATTEND General Practice
PROC: 0DJ08ZZ Inspection of Upper Intestinal Tract, Via Natural or Artificial Opening Endoscopic (ICD-10-PCS; principal; 2023-02-06 15:00)
DX: K56.7 Ileus, unspecified (principal); J44.1 Chronic obstructive pulmonary disease with (acute) exacerbation; I10 Essential (primary) hypertension; E66.01 Morbid (severe) obesity due to excess calories; Z68.42 Body mass index [BMI] 45.0-49.9, adult; E78.00 Pure hypercholesterolemia, unspecified; F32.A Depression, unspecified; K44.9 Diaphragmatic hernia without obstruction or gangrene; R60.0 Localized edema; I45.2 Bifascicular block; R07.89 Other chest pain; M79.81 Nontraumatic hematoma of soft tissue; F41.9 Anxiety disorder, unspecified; Z86.711 Personal history of pulmonary embolism; Z86.718 Personal history of other venous thrombosis and embolism; Z79.01 Long term (current) use of anticoagulants; Z79.899 Other long term (current) drug therapy; Z88.0 Allergy status to penicillin; Z88.8 Allergy status to other drugs, medicaments and biological substances; Z98.84 Bariatric surgery status; Z90.49 Acquired absence of other specified parts of digestive tract

== ENCOUNTER 2023-09-05 16:39 | Inpatient (IN) | payer MEDICAID, OTHER ==
[~2023-09-05] VITALS: Ht 167.6 cm; Wt 111.4 kg
[~2023-09-05 16:39] MED LIST changes: +ALBU8.5H INH; +BREO1INH INH; +NICO21DI9 TD; -OXYB5TAB10 PO; +OXYB5TAB11 PO; +PANT40TA29 PO; +PERC5TAB12 PO; +POTA-298 PO; -POTA1TAB14 PO; +ROSU20TA61 PO; +SUCR1ORA PO
[2023-09-05 18:41] LABS: BASO % 0.7 % (0.0-1.0); EOS # 0.1 10^3/uL (0.0-0.5); EOS % 1.3 % (0.0-3.0); HEMOGLOBIN 14.6 g/dl (12.0-15.5); LYMPH # 1.8 10^3/uL (1.5-5.0); LYMPH % 33.4 % (24.0-44.0); MEAN CORPUSCULAR HEMOGLOBIN 32.4 pg (27.0-33.0); MEAN CORPUSCULAR HGB CONC 33.2 g/dl (32.0-36.5); MEAN CORPUSCULAR VOLUME 97.6 fl (80.0-96.0); MONO # 0.6 10^3/uL (0.0-0.8); MONO % 10.4 % (2.0-8.0); NEUTROPHILS # 2.9 10^3/uL (1.5-8.5); PLATELET COUNT, AUTOMATED 208 10^3/uL (150-450); RED BLOOD COUNT 4.51 10^6/uL (4.00-5.40); WHITE BLOOD COUNT 5.4 10^3/uL (4.0-10.0)
[2023-09-05 18:53] LABS: ERYTHROCYTE SEDIMENTATION RATE 15 mm/hr (0-30)
[2023-09-05 18:59] LABS: INR 1.14; PROTHROMBIN TIME 14.3 SECONDS (12.5-14.5)
[2023-09-05 19:03] LABS: C REACTIVE PROTEIN QUANTITATIV < 0.40 MG/DL (<1.0)
[2023-09-05] MEDS ORDERED: LORazepam 2 MG TAB PO PRN (19:10)
[2023-09-05] MEDS ORDERED: PREGABALIN 50 MG CAP (LYRICA) PO ONE (19:15)
[2023-09-05] MEDS ORDERED: PERCOCET 5MG/325MG TAB PO ONE (19:15)
[2023-09-05 19:53] LABS: ETHYL ALCOHOL (ETHANOL) 0.003 % (0.000-0.010)
[2023-09-05 19:54] LABS: SALICYLATE LEVEL < 3.0 MG/DL (<30)
[2023-09-05 19:55] LABS: ALBUMIN 3.5 G/DL (3.2-5.2); ALKALINE PHOSPHATASE 151 U/L (46-116); ALT/SGPT 13 U/L (7.0-40); AST/SGOT 19 U/L (<34); BILIRUBIN,DIRECT 0.1 MG/DL (<0.4); BILIRUBIN,TOTAL 0.3 MG/DL (0.3-1.2); TOTAL PROTEIN 6.5 G/DL (5.7-8.2)
[2023-09-05 20:17] LABS: AMPHETAMINES LEVEL URINE NEGATIVE (NEGATIVE)
[2023-09-05 20:18] LABS: BARBITURATES URINE NEGATIVE (NEGATIVE); BENZODIAZEPINES URINE NEGATIVE (NEGATIVE); CANNABINOIDS URINE NEGATIVE (NEGATIVE); METHADONE URINE NEGATIVE (NEGATIVE); OPIATES URINE NEGATIVE (NEGATIVE); PHENCYCLIDINE URINE NEGATIVE (NEGATIVE)
[2023-09-05 20:20] LABS: COCAINE METABOLITE URINE POSITIVE (NEGATIVE)
[2023-09-05] MEDS ORDERED: THIAMINE 100 MG TAB PO SCH (21:00)
[2023-09-05] MEDS ORDERED: TOPI100T9 PO ×2 (23:14→23:55)
[2023-09-05] MEDS ORDERED: PANT-23 PO ×2 (23:14→23:55)
[2023-09-05] MEDS ORDERED: GLUC1KIT INJ (23:14)
[2023-09-05] MEDS ORDERED: SUMA6INJ25 INJ (23:14)
[2023-09-05] MEDS ORDERED: HOME MED LIST COMPLETE! XX SCH (23:15)
[2023-09-05] MEDS ORDERED: ACETAMINOPHEN TAB 650MG DOSE (2X325MG) PO PRN (23:25)
[2023-09-05] MEDS ORDERED: ALBUTEROL SULFATE 2.5MG/0.5ML INH NEB SOLN NEB PRN (23:30)
[2023-09-05] MEDS ORDERED: GABAPENTIN 100 MG CAP PO PRN (23:35)
[2023-09-05] MEDS ORDERED: ROSU20TA61 PO (23:55)
[2023-09-05] MEDS ORDERED: AMLO1TAB25 PO (23:55)
[2023-09-05] MEDS ORDERED: BREO1INH INH (23:55)
[2023-09-05] MEDS ORDERED: POTA-298 PO (23:55)
[2023-09-05] MEDS ORDERED: BUPR75TA5 PO (23:55)
[2023-09-05] MEDS ORDERED: ELIQ5TAB PO (23:55)
[2023-09-05] MEDS ORDERED: ALBU8.5H INH (23:55)
[2023-09-05] MEDS ORDERED: FURO20TA2 PO (23:56)
[2023-09-06] VITALS (7 sets, daily range): BP systolic 119–141; BP diastolic 63–83; TEMP 97.5–97.9; O2SAT 91–95
[2023-09-06] MEDS ORDERED: HOME MED LIST COMPLETE! XX SCH
[2023-09-06] MEDS: traMADol 50 MG TAB PO PRN ×2 (01:03→08:23)
[2023-09-06] MEDS: IPRATROPIUM 0.5MG/ALBUTEROL 2.5MG INH SOL UD 3ML (DUONEB) NEB SCH ×3 (01:46→14:23)
[2023-09-06] MEDS: ENOXAPARIN 120MG/0.8ML SYRINGE SC SCH ×3 (02:19→23:11)
[2023-09-06 07:01] LABS: INR 1.08; PROTHROMBIN TIME 13.7 SECONDS (12.5-14.5)
[2023-09-06] MEDS: KETOROLAC 30 MG/ML 1ML VIAL IV PRN ×2 (08:23→18:45)
[2023-09-06] MEDS: buPROPion 75 MG TAB PO SCH ×2 (08:25→21:45)
[2023-09-06] MEDS: ROSUVASTATIN 10 MG TAB (CRESTOR) PO SCH (08:26)
[2023-09-06] MEDS: PANTOPRAZOLE 40MG TAB (PROTONIX) PO SCH ×2 (08:26→21:45)
[2023-09-06] MEDS: TOPIRAMATE (TopAMAX) 100 MG TAB PO SCH ×2 (08:27→21:44)
[2023-09-06] MEDS: FUROSEMIDE 20 MG TAB PO SCH (08:27)
[2023-09-06] MEDS ORDERED: MULTIVITAMINS/MINERALS THERAP 1 TAB PO SCH (09:00)
[2023-09-06] MEDS ORDERED: FOLIC ACID 1MG TAB PO SCH (09:00)
[2023-09-06] MEDS ORDERED: NICOTINE 7 MG/24 HR TRANSDERMAL TD SCH (09:00)
[2023-09-06] MEDS ORDERED: MORPHINE 2 MG/ML 1ML VIAL IV PRN (12:50)
[2023-09-06] MEDS: LIDOCAINE 5% (LIDODERM) PATCH TD SCH (14:44)
[2023-09-06] MEDS: ACETAMINOPHEN 500 MG TAB PO SCH ×3 (14:45→23:11)
[2023-09-06] MEDS ORDERED: IPRATROPIUM 0.5MG/ALBUTEROL 2.5MG INH SOL UD 3ML (DUONEB) NEB PRN (14:55)
[2023-09-06] MEDS: GABAPENTIN 100 MG CAP PO SCH ×2 (15:53→21:45)
[2023-09-06] MEDS: DICLOFENAC EPOLAMINE 1.3% PATCH TOP SCH (21:44)
[2023-09-07] MEDS: KETOROLAC 30 MG/ML 1ML VIAL IV PRN ×3 (01:03→18:23)
[2023-09-07 05:36] VITALS: BP 139/83; TEMP 97.2; O2SAT 93
[2023-09-07] MEDS: GABAPENTIN 100 MG CAP PO SCH ×3 (05:43→21:19)
[2023-09-07] MEDS: ACETAMINOPHEN 500 MG TAB PO SCH ×3 (05:44→17:03)
[2023-09-07 07:19] LABS: HEMATOCRIT 43.6 % (36.0-47.0); HEMOGLOBIN 14.1 g/dl (12.0-15.5); MEAN CORPUSCULAR HEMOGLOBIN 31.8 pg (27.0-33.0); MEAN CORPUSCULAR HGB CONC 32.3 g/dl (32.0-36.5); MEAN CORPUSCULAR VOLUME 98.2 fl (80.0-96.0); PLATELET COUNT, AUTOMATED 199 10^3/uL (150-450); RED BLOOD COUNT 4.44 10^6/uL (4.00-5.40); WHITE BLOOD COUNT 4.6 10^3/uL (4.0-10.0)
[2023-09-07 07:41] LABS: BLOOD UREA NITROGEN 10 MG/DL (9-23); CALCIUM LEVEL 8.2 MG/DL (8.5-10.1); CARBON DIOXIDE LEVEL 28 MMOL/L (20-31); CHLORIDE LEVEL 108 MMOL/L (98-107); CREATININE FOR GFR 0.77 MG/DL (0.55-1.30); GLOMERULAR FILTRATION RATE > 60.0 (>51); GLUCOSE, FASTING 92 MG/DL (60-100); POTASSIUM SERUM 4.6 MMOL/L (3.5-5.1); SODIUM LEVEL 144 MMOL/L (136-145)
[2023-09-07] MEDS: MORPHINE 4 MG/ML 1ML VIAL IV PRN ×3 (08:40→21:18)
[2023-09-07] MEDS: LIDOCAINE 5% (LIDODERM) PATCH TD SCH (08:41)
[2023-09-07] MEDS: buPROPion 75 MG TAB PO SCH ×2 (08:41→22:09)
[2023-09-07] MEDS: ROSUVASTATIN 10 MG TAB (CRESTOR) PO SCH (08:41)
[2023-09-07] MEDS: FUROSEMIDE 20 MG TAB PO SCH (08:42)
[2023-09-07] MEDS: PANTOPRAZOLE 40MG TAB (PROTONIX) PO SCH ×2 (08:44→21:19)
[2023-09-07] MEDS: TOPIRAMATE (TopAMAX) 100 MG TAB PO SCH ×2 (08:44→21:19)
[2023-09-07] MEDS: NICOTINE 21MG/24HR 1 EA TRANSDERMAL TD SCH (08:51)
[2023-09-07 09:14] LABS: HEMOGLOBIN A1c 4.7 % (4.0-6.0)
[2023-09-07] MEDS: ADVAIR HFA 115/21MCG INHALER INH SCH ×2 (10:54→20:31)
[2023-09-07] MEDS: ENOXAPARIN 120MG/0.8ML SYRINGE SC SCH (12:21)
[2023-09-07 12:56] VITALS: BP 134/81
[2023-09-07 14:00] VITALS: BP 135/77; TEMP 97.7; O2SAT 93
[2023-09-07] MEDS: IPRATROPIUM 0.5MG/ALBUTEROL 2.5MG INH SOL UD 3ML (DUONEB) NEB SCH ×2 (15:12→20:31)
[2023-09-07 20:28] VITALS: BP 142/79; TEMP 97.7; O2SAT 97
[2023-09-07] MEDS: DICLOFENAC EPOLAMINE 1.3% PATCH TOP SCH (21:18)
[2023-09-07 21:19] VITALS: BP 142/79
[2023-09-08] MEDS: ACETAMINOPHEN 500 MG TAB PO SCH ×3 (00:19→12:00)
[2023-09-08] MEDS: IPRATROPIUM 0.5MG/ALBUTEROL 2.5MG INH SOL UD 3ML (DUONEB) NEB SCH ×4 (02:50→19:36)
[2023-09-08] MEDS: KETOROLAC 30 MG/ML 1ML VIAL IV PRN (04:48)
[2023-09-08 05:21] VITALS: BP 127/77; TEMP 97.3; O2SAT 96
[2023-09-08] MEDS: GABAPENTIN 100 MG CAP PO SCH ×3 (06:04→21:15)
[2023-09-08] MEDS ORDERED: PERC5TAB12 PO (06:38)
[2023-09-08] MEDS ORDERED: ONDANSETRON 4MG 2ML VIAL IV PRN (07:00)
[2023-09-08] MEDS ORDERED: KETOROLAC 30 MG/ML 1ML VIAL IV ONE ×2 (07:00→11:00)
[2023-09-08] MEDS ORDERED: PERCOCET 5MG/325MG TAB PO ONE ×2 (07:00→13:00)
[2023-09-08 07:05] LABS: HEMATOCRIT 42.6 % (36.0-47.0); MEAN CORPUSCULAR HGB CONC 32.9 g/dl (32.0-36.5); MEAN CORPUSCULAR VOLUME 97.5 fl (80.0-96.0); PLATELET COUNT, AUTOMATED 200 10^3/uL (150-450); RED BLOOD COUNT 4.37 10^6/uL (4.00-5.40); WHITE BLOOD COUNT 4.3 10^3/uL (4.0-10.0)
[2023-09-08] MEDS ORDERED: MORPHINE 4 MG/ML 1ML VIAL IV ONE (07:30)
[2023-09-08] MEDS ORDERED: SENO8.6T10 PO (07:34)
[2023-09-08] MEDS ORDERED: NALOXONE INJ 0.4MG/1ML VIAL IV PRN (07:35)
[2023-09-08 07:40] LABS: BLOOD UREA NITROGEN 13 MG/DL (9-23); CALCIUM LEVEL 8.4 MG/DL (8.5-10.1); CARBON DIOXIDE LEVEL 28 MMOL/L (20-31); CHLORIDE LEVEL 107 MMOL/L (98-107); CREATININE FOR GFR 0.78 MG/DL (0.55-1.30); GLOMERULAR FILTRATION RATE > 60.0 (>51); GLUCOSE, FASTING 89 MG/DL (60-100); POTASSIUM SERUM 3.6 MMOL/L (3.5-5.1); SODIUM LEVEL 144 MMOL/L (136-145)
[2023-09-08] MEDS: ADVAIR HFA 115/21MCG INHALER INH SCH ×2 (07:43→19:36)
[2023-09-08] MEDS: ROSUVASTATIN 10 MG TAB (CRESTOR) PO SCH (08:17)
[2023-09-08] MEDS: FUROSEMIDE 20 MG TAB PO SCH (08:18)
[2023-09-08] MEDS: PANTOPRAZOLE 40MG TAB (PROTONIX) PO SCH ×2 (08:18→21:15)
[2023-09-08] MEDS: APIXABAN 5 MG TAB (ELIQUIS) PO SCH ×2 (08:18→21:15)
[2023-09-08] MEDS: TOPIRAMATE (TopAMAX) 100 MG TAB PO SCH ×2 (08:18→21:15)
[2023-09-08] MEDS: LIDOCAINE 5% (LIDODERM) PATCH TD SCH (08:20)
[2023-09-08] MEDS: NICOTINE 21MG/24HR 1 EA TRANSDERMAL TD SCH (08:20)
[2023-09-08] MEDS: buPROPion 75 MG TAB PO SCH ×2 (09:19→21:39)
[2023-09-08 14:45] VITALS: BP 120/79; TEMP 97.5; O2SAT 96
[2023-09-08] MEDS: PERCOCET 5MG/325MG TAB PO PRN (17:47)
[2023-09-08 20:16] VITALS: BP 126/74; TEMP 97.5; O2SAT 93
[2023-09-08] MEDS: DICLOFENAC EPOLAMINE 1.3% PATCH TOP SCH (21:15)
[2023-09-09] MEDS: PERCOCET 5MG/325MG TAB PO PRN ×3 (00:15→13:11)
[2023-09-09] MEDS: IPRATROPIUM 0.5MG/ALBUTEROL 2.5MG INH SOL UD 3ML (DUONEB) NEB SCH ×4 (01:26→20:01)
[2023-09-09 05:25] VITALS: TEMP 97.3; O2SAT 92
[2023-09-09 05:53] VITALS: BP 148/90
[2023-09-09 06:17] LABS: HEMATOCRIT 39.7 % (36.0-47.0); HEMOGLOBIN 13.1 g/dl (12.0-15.5); MEAN CORPUSCULAR HEMOGLOBIN 32.4 pg (27.0-33.0); MEAN CORPUSCULAR VOLUME 98.3 fl (80.0-96.0); PLATELET COUNT, AUTOMATED 201 10^3/uL (150-450); RED BLOOD COUNT 4.04 10^6/uL (4.00-5.40)
[2023-09-09] MEDS: GABAPENTIN 100 MG CAP PO SCH ×3 (06:18→22:00)
[2023-09-09 06:50] LABS: BLOOD UREA NITROGEN 18 MG/DL (9-23); CALCIUM LEVEL 8.1 MG/DL (8.5-10.1); CARBON DIOXIDE LEVEL 25 MMOL/L (20-31); CHLORIDE LEVEL 108 MMOL/L (98-107); CREATININE FOR GFR 0.85 MG/DL (0.55-1.30); GLOMERULAR FILTRATION RATE > 60.0 (>51); GLUCOSE, FASTING 86 MG/DL (60-100); POTASSIUM SERUM 3.7 MMOL/L (3.5-5.1); SODIUM LEVEL 144 MMOL/L (136-145)
[2023-09-09] MEDS: ADVAIR HFA 115/21MCG INHALER INH SCH ×2 (07:18→20:01)
[2023-09-09] MEDS: TOPIRAMATE (TopAMAX) 100 MG TAB PO SCH ×2 (09:05→21:00)
[2023-09-09] MEDS: NICOTINE 21MG/24HR 1 EA TRANSDERMAL TD SCH (09:05)
[2023-09-09] MEDS: LIDOCAINE 5% (LIDODERM) PATCH TD SCH (09:05)
[2023-09-09] MEDS: PANTOPRAZOLE 40MG TAB (PROTONIX) PO SCH (09:06)
[2023-09-09] MEDS: APIXABAN 5 MG TAB (ELIQUIS) PO SCH (09:06)
[2023-09-09] MEDS: FUROSEMIDE 20 MG TAB PO SCH (09:06)
[2023-09-09] MEDS: buPROPion 75 MG TAB PO SCH ×2 (09:06→21:00)
[2023-09-09] MEDS: ROSUVASTATIN 10 MG TAB (CRESTOR) PO SCH (09:06)
[2023-09-09 14:00] VITALS: BP 119/81; TEMP 97.7; O2SAT 91
[2023-09-09] MEDS ORDERED: CYCLOBENZAPRINE 5MG TABLET PO ONE (15:00)
[2023-09-09] MEDS: DICLOFENAC EPOLAMINE 1.3% PATCH TOP SCH (21:00)
[2023-09-10] MEDS: APIXABAN 5 MG TAB (ELIQUIS) PO SCH ×3 (00:18→22:19)
[2023-09-10] MEDS: PANTOPRAZOLE 40MG TAB (PROTONIX) PO SCH ×3 (00:18→22:19)
[2023-09-10] MEDS: IPRATROPIUM 0.5MG/ALBUTEROL 2.5MG INH SOL UD 3ML (DUONEB) NEB SCH ×4 (02:16→19:08)
[2023-09-10 05:58] LABS: HEMATOCRIT 40.2 % (36.0-47.0); HEMOGLOBIN 13.1 g/dl (12.0-15.5); MEAN CORPUSCULAR HEMOGLOBIN 31.8 pg (27.0-33.0); MEAN CORPUSCULAR HGB CONC 32.6 g/dl (32.0-36.5); MEAN CORPUSCULAR VOLUME 97.6 fl (80.0-96.0); PLATELET COUNT, AUTOMATED 196 10^3/uL (150-450); RED BLOOD COUNT 4.12 10^6/uL (4.00-5.40); WHITE BLOOD COUNT 4.5 10^3/uL (4.0-10.0)
[2023-09-10] MEDS: GABAPENTIN 100 MG CAP PO SCH ×3 (06:12→22:19)
[2023-09-10 06:16] VITALS: BP 120/69; TEMP 97.7; O2SAT 96
[2023-09-10 06:27] LABS: BLOOD UREA NITROGEN 18 MG/DL (9-23); CALCIUM LEVEL 8.1 MG/DL (8.5-10.1); CARBON DIOXIDE LEVEL 25 MMOL/L (20-31); CHLORIDE LEVEL 110 MMOL/L (98-107); CREATININE FOR GFR 0.87 MG/DL (0.55-1.30); GLOMERULAR FILTRATION RATE > 60.0 (>51); GLUCOSE, FASTING 93 MG/DL (60-100); POTASSIUM SERUM 3.8 MMOL/L (3.5-5.1); SODIUM LEVEL 145 MMOL/L (136-145)
[2023-09-10] MEDS: ADVAIR HFA 115/21MCG INHALER INH SCH ×2 (07:27→19:08)
[2023-09-10] MEDS: NICOTINE 21MG/24HR 1 EA TRANSDERMAL TD SCH (10:00)
[2023-09-10] MEDS: LIDOCAINE 5% (LIDODERM) PATCH TD SCH (10:00)
[2023-09-10] MEDS: ROSUVASTATIN 10 MG TAB (CRESTOR) PO SCH (10:00)
[2023-09-10] MEDS: TOPIRAMATE (TopAMAX) 100 MG TAB PO SCH ×2 (10:01→22:19)
[2023-09-10] MEDS: FUROSEMIDE 20 MG TAB PO SCH (10:01)
[2023-09-10] MEDS: buPROPion 75 MG TAB PO SCH ×2 (10:01→22:19)
[2023-09-10] MEDS: PERCOCET 5MG/325MG TAB PO PRN ×3 (10:03→23:40)
[2023-09-10 15:10] VITALS: BP 130/82; TEMP 97.5
[2023-09-10 15:20] VITALS: BP 130/82
[2023-09-10] MEDS ORDERED: CYCLOBENZAPRINE 5MG TABLET PO ONE (17:05)
[2023-09-10] MEDS: DICLOFENAC EPOLAMINE 1.3% PATCH TOP SCH (22:19)
[2023-09-11] MEDS: IPRATROPIUM 0.5MG/ALBUTEROL 2.5MG INH SOL UD 3ML (DUONEB) NEB SCH ×4 (00:50→19:08)
[2023-09-11 06:10] LABS: HEMATOCRIT 41.9 % (36.0-47.0); HEMOGLOBIN 13.3 g/dl (12.0-15.5); MEAN CORPUSCULAR HGB CONC 31.7 g/dl (32.0-36.5); MEAN CORPUSCULAR VOLUME 100.7 fl (80.0-96.0); PLATELET COUNT, AUTOMATED 199 10^3/uL (150-450); RED BLOOD COUNT 4.16 10^6/uL (4.00-5.40); WHITE BLOOD COUNT 4.6 10^3/uL (4.0-10.0)
[2023-09-11] MEDS: GABAPENTIN 100 MG CAP PO SCH ×3 (06:10→21:06)
[2023-09-11 06:30] VITALS: BP 128/91; TEMP 97.3; O2SAT 93
[2023-09-11 06:34] LABS: BLOOD UREA NITROGEN 19 MG/DL (9-23); CALCIUM LEVEL 8.6 MG/DL (8.5-10.1); CARBON DIOXIDE LEVEL 28 MMOL/L (20-31); CHLORIDE LEVEL 109 MMOL/L (98-107); CREATININE FOR GFR 0.87 MG/DL (0.55-1.30); GLOMERULAR FILTRATION RATE > 60.0 (>51); GLUCOSE, FASTING 94 MG/DL (60-100); POTASSIUM SERUM 4.1 MMOL/L (3.5-5.1); SODIUM LEVEL 144 MMOL/L (136-145)
[2023-09-11] MEDS: ADVAIR HFA 115/21MCG INHALER INH SCH ×2 (08:21→19:09)
[2023-09-11] MEDS: APIXABAN 5 MG TAB (ELIQUIS) PO SCH ×2 (09:04→20:50)
[2023-09-11] MEDS: NICOTINE 21MG/24HR 1 EA TRANSDERMAL TD SCH (09:04)
[2023-09-11] MEDS: TOPIRAMATE (TopAMAX) 100 MG TAB PO SCH ×2 (09:05→20:51)
[2023-09-11] MEDS: PANTOPRAZOLE 40MG TAB (PROTONIX) PO SCH ×2 (09:05→20:51)
[2023-09-11] MEDS: ROSUVASTATIN 10 MG TAB (CRESTOR) PO SCH (09:05)
[2023-09-11] MEDS: buPROPion 75 MG TAB PO SCH ×2 (09:05→20:51)
[2023-09-11] MEDS: LIDOCAINE 5% (LIDODERM) PATCH TD SCH (09:05)
[2023-09-11] MEDS: PERCOCET 5MG/325MG TAB PO PRN ×3 (09:06→22:09)
[2023-09-11] MEDS: FUROSEMIDE 20 MG TAB PO SCH (09:06)
[2023-09-11 14:00] VITALS: BP 112/68; TEMP 97.2; O2SAT 96
[2023-09-11] MEDS: DICLOFENAC EPOLAMINE 1.3% PATCH TOP SCH (20:52)
[2023-09-12] MEDS: IPRATROPIUM 0.5MG/ALBUTEROL 2.5MG INH SOL UD 3ML (DUONEB) NEB SCH ×4 (01:04→19:25)
[2023-09-12 06:09] VITALS: BP 144/83; TEMP 96.8; O2SAT 96
[2023-09-12 06:18] LABS: HEMATOCRIT 40.5 % (36.0-47.0); HEMOGLOBIN 13.3 g/dl (12.0-15.5); MEAN CORPUSCULAR HEMOGLOBIN 32.5 pg (27.0-33.0); MEAN CORPUSCULAR HGB CONC 32.8 g/dl (32.0-36.5); PLATELET COUNT, AUTOMATED 181 10^3/uL (150-450); RED BLOOD COUNT 4.09 10^6/uL (4.00-5.40); WHITE BLOOD COUNT 4.9 10^3/uL (4.0-10.0)
[2023-09-12 06:47] LABS: BLOOD UREA NITROGEN 22 MG/DL (9-23); CARBON DIOXIDE LEVEL 23 MMOL/L (20-31); CHLORIDE LEVEL 108 MMOL/L (98-107); GLOMERULAR FILTRATION RATE > 60.0 (>51); GLUCOSE, FASTING 128 MG/DL (60-100); POTASSIUM SERUM 3.5 MMOL/L (3.5-5.1); SODIUM LEVEL 141 MMOL/L (136-145)
[2023-09-12] MEDS: GABAPENTIN 100 MG CAP PO SCH ×3 (06:48→22:13)
[2023-09-12] MEDS: PERCOCET 5MG/325MG TAB PO PRN ×3 (06:49→20:05)
[2023-09-12 06:50] VITALS: BP 136/80; TEMP 97.7; O2SAT 100
[2023-09-12] MEDS: ADVAIR HFA 115/21MCG INHALER INH SCH ×2 (08:06→19:25)
[2023-09-12] MEDS: LIDOCAINE 5% (LIDODERM) PATCH TD SCH (09:05)
[2023-09-12] MEDS: NICOTINE 21MG/24HR 1 EA TRANSDERMAL TD SCH (09:05)
[2023-09-12] MEDS: ROSUVASTATIN 10 MG TAB (CRESTOR) PO SCH (09:06)
[2023-09-12] MEDS: TOPIRAMATE (TopAMAX) 100 MG TAB PO SCH ×2 (09:06→20:06)
[2023-09-12] MEDS: FUROSEMIDE 20 MG TAB PO SCH (09:06)
[2023-09-12] MEDS: PANTOPRAZOLE 40MG TAB (PROTONIX) PO SCH ×2 (09:06→20:06)
[2023-09-12] MEDS: APIXABAN 5 MG TAB (ELIQUIS) PO SCH ×2 (09:06→20:06)
[2023-09-12] MEDS: buPROPion 75 MG TAB PO SCH ×2 (09:07→20:04)
[2023-09-12] MEDS: DICLOFENAC EPOLAMINE 1.3% PATCH TOP SCH (20:06)
[2023-09-13] MEDS: IPRATROPIUM 0.5MG/ALBUTEROL 2.5MG INH SOL UD 3ML (DUONEB) NEB SCH ×4 (01:15→19:51)
[2023-09-13] MEDS: PERCOCET 5MG/325MG TAB PO PRN ×4 (01:59→22:36)
[2023-09-13 05:25] VITALS: BP 139/85; TEMP 97.3; O2SAT 96
[2023-09-13] MEDS: GABAPENTIN 100 MG CAP PO SCH ×3 (06:01→21:30)
[2023-09-13] MEDS: ADVAIR HFA 115/21MCG INHALER INH SCH ×2 (07:58→19:51)
[2023-09-13] MEDS: buPROPion 75 MG TAB PO SCH ×2 (09:13→20:34)
[2023-09-13] MEDS: PANTOPRAZOLE 40MG TAB (PROTONIX) PO SCH ×2 (09:13→20:37)
[2023-09-13] MEDS: FUROSEMIDE 20 MG TAB PO SCH (09:13)
[2023-09-13] MEDS: ROSUVASTATIN 10 MG TAB (CRESTOR) PO SCH (09:13)
[2023-09-13] MEDS: APIXABAN 5 MG TAB (ELIQUIS) PO SCH ×2 (09:13→20:35)
[2023-09-13] MEDS: LIDOCAINE 5% (LIDODERM) PATCH TD SCH (09:14)
[2023-09-13] MEDS: NICOTINE 21MG/24HR 1 EA TRANSDERMAL TD SCH (09:14)
[2023-09-13] MEDS: TOPIRAMATE (TopAMAX) 100 MG TAB PO SCH ×2 (09:14→21:30)
[2023-09-13] MEDS: DICLOFENAC EPOLAMINE 1.3% PATCH TOP SCH (20:36)
[2023-09-14] MEDS: IPRATROPIUM 0.5MG/ALBUTEROL 2.5MG INH SOL UD 3ML (DUONEB) NEB SCH ×4 (01:23→20:55)
[2023-09-14 05:30] VITALS: BP 136/84; TEMP 97.2; O2SAT 96
[2023-09-14] MEDS: CYCLOBENZAPRINE 10MG TABLET PO PRN ×2 (06:34→16:44)
[2023-09-14] MEDS: GABAPENTIN 100 MG CAP PO SCH ×3 (06:35→21:13)
[2023-09-14] MEDS: ADVAIR HFA 115/21MCG INHALER INH SCH ×2 (08:35→20:55)
[2023-09-14] MEDS: PANTOPRAZOLE 40MG TAB (PROTONIX) PO SCH ×2 (08:47→21:13)
[2023-09-14] MEDS: ROSUVASTATIN 10 MG TAB (CRESTOR) PO SCH (08:47)
[2023-09-14] MEDS: APIXABAN 5 MG TAB (ELIQUIS) PO SCH ×2 (08:47→21:13)
[2023-09-14] MEDS: buPROPion 75 MG TAB PO SCH ×2 (08:48→21:13)
[2023-09-14] MEDS: TOPIRAMATE (TopAMAX) 100 MG TAB PO SCH ×2 (08:48→21:18)
[2023-09-14] MEDS: FUROSEMIDE 20 MG TAB PO SCH (08:48)
[2023-09-14] MEDS: LIDOCAINE 5% (LIDODERM) PATCH TD SCH (08:49)
[2023-09-14] MEDS: NICOTINE 21MG/24HR 1 EA TRANSDERMAL TD SCH (08:49)
[2023-09-14] MEDS: PERCOCET 5MG/325MG TAB PO PRN ×2 (11:26→18:41)
[2023-09-14] MEDS: DICLOFENAC EPOLAMINE 1.3% PATCH TOP SCH (21:12)
[2023-09-15] MEDS: IPRATROPIUM 0.5MG/ALBUTEROL 2.5MG INH SOL UD 3ML (DUONEB) NEB SCH ×4 (01:22→20:04)
[2023-09-15] MEDS: PERCOCET 5MG/325MG TAB PO PRN ×2 (04:51→17:50)
[2023-09-15] MEDS: GABAPENTIN 100 MG CAP PO SCH ×3 (05:00→21:53)
[2023-09-15] MEDS: CYCLOBENZAPRINE 10MG TABLET PO PRN ×3 (05:00→22:33)
[2023-09-15 06:10] VITALS: BP 136/84; TEMP 97.1; O2SAT 96
[2023-09-15] MEDS: ADVAIR HFA 115/21MCG INHALER INH SCH ×2 (07:21→20:05)
[2023-09-15] MEDS: TOPIRAMATE (TopAMAX) 100 MG TAB PO SCH ×2 (08:19→22:28)
[2023-09-15] MEDS: FUROSEMIDE 20 MG TAB PO SCH (08:19)
[2023-09-15] MEDS: buPROPion 75 MG TAB PO SCH ×2 (08:20→21:59)
[2023-09-15] MEDS: APIXABAN 5 MG TAB (ELIQUIS) PO SCH ×2 (08:20→21:58)
[2023-09-15] MEDS: PANTOPRAZOLE 40MG TAB (PROTONIX) PO SCH ×2 (08:20→21:59)
[2023-09-15] MEDS: ROSUVASTATIN 10 MG TAB (CRESTOR) PO SCH (08:20)
[2023-09-15] MEDS: NICOTINE 21MG/24HR 1 EA TRANSDERMAL TD SCH (08:21)
[2023-09-15] MEDS: LIDOCAINE 5% (LIDODERM) PATCH TD SCH (08:21)
[2023-09-15] MEDS: DICLOFENAC EPOLAMINE 1.3% PATCH TOP SCH (21:59)
[2023-09-16] MEDS: PERCOCET 5MG/325MG TAB PO PRN ×4 (00:45→22:42)
[2023-09-16] MEDS: IPRATROPIUM 0.5MG/ALBUTEROL 2.5MG INH SOL UD 3ML (DUONEB) NEB SCH ×4 (02:00→19:28)
[2023-09-16 05:52] VITALS: BP 131/82; TEMP 97.3; O2SAT 96
[2023-09-16] MEDS: GABAPENTIN 100 MG CAP PO SCH ×3 (06:12→21:02)
[2023-09-16] MEDS: CYCLOBENZAPRINE 10MG TABLET PO PRN ×2 (06:52→21:01)
[2023-09-16] MEDS: ADVAIR HFA 115/21MCG INHALER INH SCH ×2 (07:31→19:28)
[2023-09-16] MEDS: ROSUVASTATIN 10 MG TAB (CRESTOR) PO SCH (09:30)
[2023-09-16] MEDS: PANTOPRAZOLE 40MG TAB (PROTONIX) PO SCH ×2 (09:31→21:01)
[2023-09-16] MEDS: buPROPion 75 MG TAB PO SCH ×2 (09:31→21:01)
[2023-09-16] MEDS: TOPIRAMATE (TopAMAX) 100 MG TAB PO SCH ×2 (09:31→21:01)
[2023-09-16] MEDS: FUROSEMIDE 20 MG TAB PO SCH (09:31)
[2023-09-16] MEDS: APIXABAN 5 MG TAB (ELIQUIS) PO SCH ×2 (09:31→21:01)
[2023-09-16] MEDS: NICOTINE 21MG/24HR 1 EA TRANSDERMAL TD SCH (09:33)
[2023-09-16] MEDS: LIDOCAINE 5% (LIDODERM) PATCH TD SCH (09:33)
[2023-09-16] MEDS: DICLOFENAC EPOLAMINE 1.3% PATCH TOP SCH (21:02)
[2023-09-17] MEDS: IPRATROPIUM 0.5MG/ALBUTEROL 2.5MG INH SOL UD 3ML (DUONEB) NEB SCH ×4 (01:23→19:40)
[2023-09-17] MEDS: PERCOCET 5MG/325MG TAB PO PRN ×3 (05:17→20:25)
[2023-09-17] MEDS: GABAPENTIN 100 MG CAP PO SCH ×3 (05:17→21:02)
[2023-09-17 05:18] VITALS: BP 138/78; TEMP 97.2; O2SAT 97
[2023-09-17] MEDS: ADVAIR HFA 115/21MCG INHALER INH SCH ×2 (07:48→19:41)
[2023-09-17] MEDS: TOPIRAMATE (TopAMAX) 100 MG TAB PO SCH ×2 (09:16→21:02)
[2023-09-17] MEDS: PANTOPRAZOLE 40MG TAB (PROTONIX) PO SCH ×2 (09:16→21:02)
[2023-09-17] MEDS: NICOTINE 21MG/24HR 1 EA TRANSDERMAL TD SCH (09:16)
[2023-09-17] MEDS: CYCLOBENZAPRINE 10MG TABLET PO PRN ×2 (09:16→23:31)
[2023-09-17] MEDS: ROSUVASTATIN 10 MG TAB (CRESTOR) PO SCH (09:16)
[2023-09-17] MEDS: FUROSEMIDE 20 MG TAB PO SCH (09:16)
[2023-09-17] MEDS: LIDOCAINE 5% (LIDODERM) PATCH TD SCH (09:16)
[2023-09-17] MEDS: buPROPion 75 MG TAB PO SCH ×2 (09:16→21:02)
[2023-09-17] MEDS: APIXABAN 5 MG TAB (ELIQUIS) PO SCH ×2 (09:17→21:02)
[2023-09-17] MEDS: DICLOFENAC EPOLAMINE 1.3% PATCH TOP SCH (21:03)
[2023-09-18] MEDS: IPRATROPIUM 0.5MG/ALBUTEROL 2.5MG INH SOL UD 3ML (DUONEB) NEB SCH ×2 (01:05→08:14)
[2023-09-18] MEDS: GABAPENTIN 100 MG CAP PO SCH (05:02)
[2023-09-18] MEDS: PERCOCET 5MG/325MG TAB PO PRN ×2 (05:03→11:08)
[2023-09-18 05:13] VITALS: BP 134/72; TEMP 97.5; O2SAT 97
[2023-09-18 06:03] VITALS: O2SAT 97
[2023-09-18] MEDS: ADVAIR HFA 115/21MCG INHALER INH SCH (08:14)
[2023-09-18] MEDS: ROSUVASTATIN 10 MG TAB (CRESTOR) PO SCH (09:05)
[2023-09-18] MEDS: buPROPion 75 MG TAB PO SCH (09:05)
[2023-09-18] MEDS: LIDOCAINE 5% (LIDODERM) PATCH TD SCH (09:05)
[2023-09-18] MEDS: FUROSEMIDE 20 MG TAB PO SCH (09:05)
[2023-09-18] MEDS: NICOTINE 21MG/24HR 1 EA TRANSDERMAL TD SCH (09:05)
[2023-09-18 09:06] VITALS: BP 135/89
[2023-09-18] MEDS: TOPIRAMATE (TopAMAX) 100 MG TAB PO SCH (09:06)
[2023-09-18] MEDS: PANTOPRAZOLE 40MG TAB (PROTONIX) PO SCH (09:06)
[2023-09-18] MEDS: APIXABAN 5 MG TAB (ELIQUIS) PO SCH (09:06)
[2023-09-18] MEDS: CYCLOBENZAPRINE 10MG TABLET PO PRN (09:15)
[2023-09-18] MEDS ORDERED: GABA-1171 PO (10:11)
[2023-09-18] MEDS ORDERED: ELIQ5TAB PO (10:11)
== END 2023-09-18 11:15 | disposition home health service (06) | DRG 197 ==
LOC: M ED 16:39 → M ED INP 23:23 → M MS5PR 09-06 00:10
PROVIDERS: ADMIT Internal Medicine; ATTEND Family Medicine
DX: I82.412 Acute embolism and thrombosis of left femoral vein (principal); D68.51 Activated protein C resistance; I10 Essential (primary) hypertension; J44.9 Chronic obstructive pulmonary disease, unspecified; G43.709 Chronic migraine without aura, not intractable, without status migrainosus; E78.5 Hyperlipidemia, unspecified; Z98.84 Bariatric surgery status; Z90.49 Acquired absence of other specified parts of digestive tract; Z95.828 Presence of other vascular implants and grafts; F17.210 Nicotine dependence, cigarettes, uncomplicated; F10.20 Alcohol dependence, uncomplicated; G57.90 Unspecified mononeuropathy of unspecified lower limb; K21.9 Gastro-esophageal reflux disease without esophagitis; F14.10 Cocaine abuse, uncomplicated; R60.0 Localized edema; J45.909 Unspecified asthma, uncomplicated; E66.9 Obesity, unspecified; Z86.711 Personal history of pulmonary embolism; Z79.01 Long term (current) use of anticoagulants; Z79.899 Other long term (current) drug therapy; Z88.0 Allergy status to penicillin; Z88.8 Allergy status to other drugs, medicaments and biological substances; Z68.39 Body mass index [BMI] 39.0-39.9, adult

== ENCOUNTER 2024-01-12 19:01 | Observation (INO) | payer MEDICAID, OTHER ==
[~2024-01-12] VITALS: Ht 167.6 cm; Wt 136.4 kg
[~2024-01-12 19:01] MED LIST changes: +GABA-1171 PO; +GLUC1KIT INJ; -OXYB5TAB11 PO; +OXYB5TAB14 PO; +PANT-23 PO; +SENO8.6T10 PO; +SUMA6INJ25 INJ
[2024-01-12 20:25] LABS: BASO % 0.5 % (0.0-1.0); EOS # 0.1 10^3/uL (0.0-0.5); EOS % 0.6 % (0.0-3.0); HEMATOCRIT 44.5 % (36.0-47.0); LYMPH # 1.5 10^3/uL (1.5-5.0); LYMPH % 18.6 % (24.0-44.0); MEAN CORPUSCULAR HEMOGLOBIN 32.1 pg (27.0-33.0); MEAN CORPUSCULAR HGB CONC 33.7 g/dl (32.0-36.5); MEAN CORPUSCULAR VOLUME 95.1 fl (80.0-96.0); MONO # 0.8 10^3/uL (0.0-0.8); NEUTROPHILS # 5.7 10^3/uL (1.5-8.5); NEUTROPHILS % 69.7 % (36.0-66.0); PLATELET COUNT, AUTOMATED 243 10^3/uL (150-450); RED BLOOD COUNT 4.68 10^6/uL (4.00-5.40); WHITE BLOOD COUNT 8.2 10^3/uL (4.0-10.0)
[2024-01-12] MEDS: MORPHINE 4 MG/ML 1ML VIAL IV ONE (20:35)
[2024-01-12] MEDS: ONDANSETRON 4MG 2ML VIAL IV ONE (20:35)
[2024-01-12 20:55] LABS: ETHYL ALCOHOL (ETHANOL) 0.207 % (0.000-0.010)
[2024-01-12 20:57] LABS: BLOOD UREA NITROGEN 15 MG/DL (9-23); CALCIUM LEVEL 7.4 MG/DL (8.5-10.1); CARBON DIOXIDE LEVEL 21 MMOL/L (20-31); CHLORIDE LEVEL 111 MMOL/L (98-107); GLOMERULAR FILTRATION RATE > 60.0 (>51); GLUCOSE, FASTING 110 MG/DL (60-100); POTASSIUM SERUM 4.1 MMOL/L (3.5-5.1); SODIUM LEVEL 141 MMOL/L (136-145)
[2024-01-12 21:09] LABS: CPK CREATINE PHOSPHOKINASE 219 U/L (34-145)
[2024-01-12] MEDS: MORPHINE 2 MG/ML 1ML VIAL IV ONE (22:31)
[2024-01-13] MEDS: methylPREDNISolone 125MG 2ML VIAL IV ONE (01:06)
[2024-01-13] MEDS: THIAMINE 100 MG TAB PO SCH ×2 (03:43→09:30)
[2024-01-13] MEDS: LORazepam 2 MG TAB PO PRN (03:43)
[2024-01-13] MEDS ORDERED: MOM 30ML SUSPENSION UDC PO PRN (05:15)
[2024-01-13] MEDS ORDERED: MED REC IN PROGRESS XX SCH (08:55)
[2024-01-13] MEDS ORDERED: MULTIVITAMINS/MINERALS THERAP 1 TAB PO SCH (09:00)
[2024-01-13] MEDS ORDERED: FOLIC ACID 1MG TAB PO SCH (09:00)
[2024-01-13] MEDS ORDERED: NICO21DI37 TOP (09:00)
[2024-01-13] MEDS ORDERED: DOCU8.6T PO (09:03)
[2024-01-13] MEDS ORDERED: PERCOCET PO (09:03)
[2024-01-13] MEDS ORDERED: HOME MED LIST COMPLETE! XX SCH (09:05)
[2024-01-13] MEDS: APIXABAN 5 MG TAB (ELIQUIS) PO SCH (09:29)
[2024-01-13] MEDS: FOLIC ACID 1MG TAB PO SCH (09:29)
[2024-01-13] MEDS: MULTIVITAMINS/MINERALS THERAP 1 TAB PO SCH (09:29)
[2024-01-13] MEDS: ACETAMINOPHEN TAB 650MG DOSE (2X325MG) PO PRN (09:31)
[2024-01-13] MEDS: PANTOPRAZOLE 40MG TAB (PROTONIX) PO SCH (11:25)
[2024-01-13] MEDS: FUROSEMIDE 20 MG TAB PO SCH (11:26)
[2024-01-13] MEDS: SENOKOT S TAB PO SCH (11:26)
[2024-01-13] MEDS: predniSONE 20 MG TAB PO SCH (11:26)
[2024-01-13] MEDS: GABAPENTIN 300 MG CAP PO SCH (11:26)
[2024-01-13] MEDS: ROSUVASTATIN 10 MG TAB (CRESTOR) PO SCH (11:27)
[2024-01-13] MEDS: TOPIRAMATE (TopAMAX) 100 MG TAB PO SCH (11:27)
[2024-01-13] MEDS: PERCOCET 5MG/325MG TAB PO PRN (11:29)
[2024-01-13 12:00] LABS: PROCALCITONIN <0.04 ng/ml
[2024-01-13 12:14] LABS: ERYTHROCYTE SEDIMENTATION RATE 16 mm/hr (0-30)
[2024-01-13] MEDS: IPRATROPIUM 0.5MG/ALBUTEROL 2.5MG INH SOL UD 3ML (DUONEB) NEB SCH (12:32)
[2024-01-13] MEDS: ADVAIR HFA 115/21MCG INHALER INH SCH (12:33)
[2024-01-13 12:36] VITALS: O2SAT 95
[2024-01-13] MEDS: buPROPion 75 MG TAB PO SCH (12:57)
[2024-01-13] MEDS ORDERED: PILL CUTTER 1 EACH XX ONE (14:15)
[2024-01-13] MEDS: HYDROmorphone 2 MG TAB PO ONE (14:19)
[2024-01-13 17:00] VITALS: BP 111/72; TEMP 97.2; O2SAT 90
[2024-01-13] MEDS: CYCLOBENZAPRINE 5MG TABLET PO ONE (17:21)
[2024-01-13] MEDS: KETOROLAC 30 MG/ML 1ML VIAL IV ONE (17:23)
[2024-01-13 19:20] VITALS: O2SAT 96
[2024-01-13] MEDS ORDERED: ADVAIR HFA 230/21MCG INHALER INH SCH (21:00)
[2024-01-13 21:23] VITALS: BP 124/72
[2024-01-13 21:25] VITALS: BP 124/72; TEMP 98.1; O2SAT 94
[2024-01-13] MEDS: NICOTINE 7 MG/24 HR TRANSDERMAL TD SCH (23:23)
[2024-01-14] VITALS (7 sets, daily range): BP systolic 112–124; BP diastolic 64–76; TEMP 97.2–97.9; O2SAT 95–98
[2024-01-14 06:52] LABS: HEMATOCRIT 38.5 % (36.0-47.0); MEAN CORPUSCULAR HEMOGLOBIN 31.7 pg (27.0-33.0); MEAN CORPUSCULAR HGB CONC 32.7 g/dl (32.0-36.5); MEAN CORPUSCULAR VOLUME 96.7 fl (80.0-96.0); PLATELET COUNT, AUTOMATED 184 10^3/uL (150-450); RED BLOOD COUNT 3.98 10^6/uL (4.00-5.40); WHITE BLOOD COUNT 8.8 10^3/uL (4.0-10.0)
[2024-01-14 06:53] LABS: HEMOGLOBIN 12.6 g/dl (12.0-15.5)
[2024-01-14 07:03] LABS: ALBUMIN 2.7 G/DL (3.2-5.2); ALKALINE PHOSPHATASE 112 U/L (46-116); ALT/SGPT 13 U/L (7.0-40); AST/SGOT 18 U/L (<34); BILIRUBIN,TOTAL 0.4 MG/DL (0.3-1.2); BLOOD UREA NITROGEN 20 MG/DL (9-23); CALCIUM LEVEL 7.7 MG/DL (8.5-10.1); CARBON DIOXIDE LEVEL 24 MMOL/L (20-31); CHLORIDE LEVEL 109 MMOL/L (98-107); GLOMERULAR FILTRATION RATE > 60.0 (>51); GLUCOSE, FASTING 112 MG/DL (60-100); MAGNESIUM LEVEL 2.2 MG/DL (1.8-2.4); POTASSIUM SERUM 4.1 MMOL/L (3.5-5.1); SODIUM LEVEL 141 MMOL/L (136-145); TOTAL PROTEIN 5.5 G/DL (5.7-8.2)
[2024-01-14] MEDS: LORazepam 1 MG TAB PO ONE (09:26)
[2024-01-14] MEDS: PERCOCET 5MG/325MG TAB PO PRN (10:49)
[2024-01-14] MEDS: ANALGESIC BALM CRM 3OZ TOP SCH (15:43)
[2024-01-14] MEDS: LORazepam 0.5 MG TAB PO ONE (21:34)
[2024-01-15] VITALS (7 sets, daily range): BP systolic 115–140; BP diastolic 61–87; TEMP 97.7; O2SAT 94–97
[2024-01-15] MEDS: LORazepam 2 MG TAB PO PRN (15:38)
[2024-01-15] MEDS: MORPHINE 2 MG/ML 1ML VIAL IV ONE (19:28)
[2024-01-15] MEDS ORDERED: VANCOMYCIN HCL 500 MG in D5W MINI-BAG PLUS 100 ML IV SCH (23:00)
[2024-01-15 23:21] LABS: BASO % 0.2 % (0.0-1.0); EOS % 0.1 % (0.0-3.0); HEMATOCRIT 39.1 % (36.0-47.0); HEMOGLOBIN 12.7 g/dl (12.0-15.5); LYMPH # 1.6 10^3/uL (1.5-5.0); LYMPH % 18.1 % (24.0-44.0); MEAN CORPUSCULAR HEMOGLOBIN 31.8 pg (27.0-33.0); MEAN CORPUSCULAR HGB CONC 32.5 g/dl (32.0-36.5); MONO # 0.9 10^3/uL (0.0-0.8); MONO % 9.9 % (2.0-8.0); NEUTROPHILS # 6.1 10^3/uL (1.5-8.5); PLATELET COUNT, AUTOMATED 199 10^3/uL (150-450); RED BLOOD COUNT 3.99 10^6/uL (4.00-5.40); WHITE BLOOD COUNT 8.6 10^3/uL (4.0-10.0)
[2024-01-15] MEDS: VANCOMYCIN HCL 1,000 MG, VIAL MATE ADAPTER 1 EACH in D5W 250 ML IV ONE (23:41)
[2024-01-16] MEDS: VANCOMYCIN HCL 1,000 MG, VIAL MATE ADAPTER 1 EACH in D5W 250 ML IV ONE (01:08)
[2024-01-16 03:43] VITALS: BP 112/62
[2024-01-16] MEDS: KETOROLAC 30 MG/ML 1ML VIAL IV ONE (04:14)
[2024-01-16] MEDS: VANCOMYCIN HCL 1,000 MG, VIAL MATE ADAPTER 1 EACH in D5W 250 ML IV SCH (05:27)
[2024-01-16 06:21] VITALS: BP 107/66; TEMP 97.5; O2SAT 96
[2024-01-16 08:44] LABS: CREATININE FOR GFR 0.82 MG/DL (0.55-1.30); GLOMERULAR FILTRATION RATE > 60.0 (>51)
[2024-01-16] MEDS: CEPHALEXIN 500 MG CAP PO SCH (11:19)
[2024-01-16] MEDS: oxyCODONE 5MG TAB PO PRN (13:27)
[2024-01-16] MEDS: ACETAMINOPHEN 500 MG TAB PO SCH (17:15)
[2024-01-16 20:11] VITALS: BP 119/67; TEMP 97.5; O2SAT 96
[2024-01-17 06:00] VITALS: BP 116/66; TEMP 97.3; O2SAT 96
[2024-01-17 09:39] VITALS: BP 104/64
[2024-01-18 05:42] VITALS: BP 119/73; TEMP 97.5; O2SAT 95
[2024-01-18 20:00] VITALS: BP 119/62; TEMP 97.7; O2SAT 96
[2024-01-19 06:04] VITALS: BP 128/79; TEMP 97.5; O2SAT 98
[2024-01-19 22:30] VITALS: BP 111/66
[2024-01-19 22:34] VITALS: BP 125/75
[2024-01-19 22:39] VITALS: BP 142/106
[2024-01-20 05:50] VITALS: BP 126/76; TEMP 97.2; O2SAT 99
[2024-01-21 05:11] VITALS: BP 137/76; TEMP 97.7; O2SAT 96; O2SAT 98
[2024-01-22 05:18] VITALS: BP 113/63; TEMP 97.5; O2SAT 95
[2024-01-22 08:07] VITALS: BP 118/73
[2024-01-22] MEDS ORDERED: Multivitamins PO (11:46)
[2024-01-22] MEDS ORDERED: THIA100T7 PO (11:46)
[2024-01-22] MEDS ORDERED: FOLI1TAB11 PO (11:46)
[2024-01-22] MEDS ORDERED: PERCOCET PO (12:11)
[2024-01-22] MEDS ORDERED: ELIQ5TAB PO (12:14)
[2024-01-22] MEDS ORDERED: AMLO1TAB25 PO (12:14)
[2024-01-22] MEDS ORDERED: FURO20TA2 PO (12:14)
[2024-01-22] MEDS ORDERED: BUPR75TA5 PO (12:14)
[2024-01-22] MEDS ORDERED: PANT-23 PO (12:14)
[2024-01-22] MEDS ORDERED: DOCU8.6T PO (12:14)
[2024-01-22] MEDS ORDERED: TOPI100T9 PO (12:14)
[2024-01-22] MEDS ORDERED: BREO1INH INH (12:14)
[2024-01-22] MEDS ORDERED: ROSU20TA61 PO (12:14)
== END 2024-01-22 17:24 | disposition home or self-care (01) ==
LOC: M ED 19:01 → M ED INP 19:02 → ENRESERV 01-13 15:45 → M MSPAV 01-13 17:04
PROVIDERS: ADMIT Internal Medicine; ATTEND Internal Medicine Nephrology
DX: F10.929 Alcohol use, unspecified with intoxication, unspecified (principal); S80.12XA Contusion of left lower leg, initial encounter; M79.605 Pain in left leg; W01.10XA Fall on same level from slipping, tripping and stumbling with subsequent striking against unspecified object, initial encounter; Y92.410 Unspecified street and highway as the place of occurrence of the external cause; Y93.01 Activity, walking, marching and hiking; Y99.8 Other external cause status; G62.1 Alcoholic polyneuropathy; J44.9 Chronic obstructive pulmonary disease, unspecified; E66.01 Morbid (severe) obesity due to excess calories; Z98.84 Bariatric surgery status; Z86.718 Personal history of other venous thrombosis and embolism; Z86.711 Personal history of pulmonary embolism; Z91.148 Patient's other noncompliance with medication regimen for other reason; I82.523 Chronic embolism and thrombosis of iliac vein, bilateral; I82.891 Chronic embolism and thrombosis of other specified veins; I82.812 Embolism and thrombosis of superficial veins of left lower extremity; D68.2 Hereditary deficiency of other clotting factors; M17.12 Unilateral primary osteoarthritis, left knee; M25.462 Effusion, left knee; I10 Essential (primary) hypertension; E78.5 Hyperlipidemia, unspecified; G43.909 Migraine, unspecified, not intractable, without status migrainosus; R42 Dizziness and giddiness; F17.200 Nicotine dependence, unspecified, uncomplicated; Z88.0 Allergy status to penicillin; Z88.1 Allergy status to other antibiotic agents; Z79.899 Other long term (current) drug therapy; Z79.01 Long term (current) use of anticoagulants; Z79.51 Long term (current) use of inhaled steroids; Z83.3 Family history of diabetes mellitus; Z80.0 Family history of malignant neoplasm of digestive organs; Z83.49 Family history of other endocrine, nutritional and metabolic diseases
CPT/HCPCS: 73502; 73564; 73700; 80047; 80048; 80053; 82077; 82550; 82565; 83735; 84145; 85025; 85027; 85652; 86140; 87040; 87635; 93971; 94640; 96365; 96366; 96374; 96375; 96376; 97116; 97161; 97165; 97530; 97535; 99284; J1885; J2405; J2930; J3370; J7512